=== PATIENT | male | born 1965 | race Caucasian/White ===

== ENCOUNTER → 2017-11-16 | Outpatient (CLI) | payer MEDICARE, MEDICAID ==
[~2017-11-16] MED LIST: AMLO10TA82 PO; AMLO1TAB65 PO; ARIP10TA2 PO; ARPZ10T PO; ASP325T PO; ASP81CT PO; AZOR; AZOR PO; Atorvastatin Calcium PO; BENADRYL; BPR100T PO; BPR75T PO; BUPR150T20 PO; CATHETER FLUSH 10 ML SYR IV PRN; CLN.2TD TOP; CLON1PAT15 TD; CLON1TAB3 PO; CLPD75T PO; CTLP20T PO; DESV50TA PO; DEXL60CA PO; DIVA500T PO; DRNB2.5C PO; DVL250TEC PO; DVL250TEC1 PO; FENO130C5 PO; FLT05NA16 NSEACH; FLUO20CA42 PO; FLUO40CA PO; GMFB600T PO; HCT25T; HYDR-700 PO; IPRA3AMP11 INH; LOTREL; LSRT50T PO; METO100T5 PO; METO200T6 PO; MVI; NF-ESOM40C; NF-ESOM40C PO; NF-KET2% TOP; NFNEB10T PO; OLME40TA14 PO; OLN10T PO; OLN5T PO; OXYC-188 PO; OXYC-309 PO; OXYC1TAB19 PO; PNT40TEC PO; PREN-46 PO; PREN1TAB39 PO; Polyethylene Glycol PO; REGADENOSON 0.4 MG/5 ML SYR (LEXISCAN) IV ONE; RNT150T; SELENIUM SULFIDE TP; SENN1TAB76 PO; STL80T PO; SULF1TAB38; THIA100T12 PO; TRM50T PO; VNL75T PO; WRF10T PO; WRF2T PO; WRF3T PO; ZLP10T PO; [UNRECOGNIZED DRUG - OTHER]
[2017-11-16 08:51] VITALS: BP 130/100
--- NOTE | 2017-11-17 07:40 | STRESS TEST ---
DATE OF SERVICE: 11/16/2017 LEXISCAN MYOVIEW STRESS TEST REPORT REFERRING PHYSICIAN: RADHA Bueno Baseline heart rate is 58, baseline blood pressure 150/97. Baseline EKG is sinus rhythm with no ischemic changes. In summary, the patient received 10.98 mCi of technetium-99 Myoview and the resting images were obtained. Then, the patient received 0.4 mg of Lexiscan followed by 31.1 mCi of technetium-99 Myoview. Throughout the test, there were no EKG changes. The resting and stress images were reviewed and compared in the short axis, horizontal long axis and vertical long axis views. Review of the images showed diaphragmatic attenuation with typical male pattern. No significant ischemia or infarction. SSS is 1, SDS 1, TID value of 1.05. On the gated images, the left ventricle appeared to be in normal size with normal contractility. Calculated ejection fraction of 70%. CONCLUSION: 1. The patient tolerated Lexiscan well. 2. No ischemia or infarction on SPECT images. 3. Normal left ventricular size with normal contractility. Calculated ejection fraction of 70%. Job ID: [id number] DocumentID: [id number] Dictated Date: 11/17/2017 07:17:09 Medical Scheduler Date: 11/17/2017 07:38:58 Dictated By: ALYSSA ANTHONY MD
== END ==
LOC: CARD 07:33
PROVIDERS: ATTEND Internal Medicine Cardiovascular Disease
DX: I48.91 Unspecified atrial fibrillation (principal); I25.10 Atherosclerotic heart disease of native coronary artery without angina pectoris; R07.9 Chest pain, unspecified; R00.2 Palpitations; I49.3 Ventricular premature depolarization; I07.1 Rheumatic tricuspid insufficiency
CPT/HCPCS: 78452; 93017

== ENCOUNTER → 2017-11-30 | Outpatient (CLI) | payer MEDICARE, MEDICAID ==
[~2017-11-30] MED LIST changes: -CATHETER FLUSH 10 ML SYR IV PRN; -REGADENOSON 0.4 MG/5 ML SYR (LEXISCAN) IV ONE
== END ==
LOC: CARD 08:58
PROVIDERS: ATTEND Internal Medicine Cardiovascular Disease
DX: I48.91 Unspecified atrial fibrillation (principal); I25.10 Atherosclerotic heart disease of native coronary artery without angina pectoris; R07.89 Other chest pain; R00.2 Palpitations; I49.3 Ventricular premature depolarization; I07.1 Rheumatic tricuspid insufficiency
CPT/HCPCS: 93306

== ENCOUNTER 2018-02-08 10:24 | Outpatient (CLI) | payer MEDICARE, MEDICAID | END 2018-02-08 10:41 | disposition home or self-care (01) | LOC: SLEEP 10:24 | PROVIDERS: ATTEND Internal Medicine Cardiovascular Disease | DX: G47.33 Obstructive sleep apnea (adult) (pediatric) (principal) ==

== ENCOUNTER → 2018-03-17 | Outpatient (CLI) | payer MEDICARE, MEDICAID ==
--- NOTE | 2018-03-17 16:34 | Diagnostic Imaging Report ---
EXAMINATION: Supine KUB At 4:13 p.m. INDICATION: Check IVC placement. FINDINGS: The previous supine abdomen exam of 09/10/2013 noted an IVC filter in place on the right at the L3-4 level. The IVC filter is again evident on this study and virtually unchanged in position on this exam. There is gas in both the large and small bowel in a nonspecific fashion. There is no evidence for bowel obstruction. There is a fair amount of fecal material in the transverse and ascending colon. There is no mass, organomegaly, or pathological calcification evident. Surgical clips are again seen overlying the right upper quadrant. The osseous structures are intact. IMPRESSION: 1. The vena cava filter seen on the prior exam appears to be stable in position. 2. The bowel gas pattern is nonspecific. There is no acute abnormality evident. Dictated by: Dictated on workstation # [id number]
== END ==
LOC: RAD 15:42
PROVIDERS: ATTEND Nurse Practitioner Primary Care
DX: Z95.828 Presence of other vascular implants and grafts (principal)
CPT/HCPCS: 74018

== ENCOUNTER 2018-05-26 21:00 | Outpatient (CLI) | payer MEDICARE, MEDICAID | END 2018-05-27 06:55 | disposition home or self-care (01) | LOC: SLEEP 21:00 | PROVIDERS: ATTEND Otolaryngology Otolaryngology/Facial Plastic Surgery | DX: G47.33 Obstructive sleep apnea (adult) (pediatric) (principal) | CPT/HCPCS: 95811 ==

== ENCOUNTER → 2019-08-22 | Outpatient (CLI) | payer MEDICARE, MEDICAID ==
[~2019-08-22] MED LIST changes: +HOLD METFORMIN - RECEIVED CONTRAST 20 ML VIAL IV SCH; +IOHEXOL 350 MG/ML 100 ML (OMNIPAQUE 350) VIAL IV ONE; +NS 100 ML (IVPB) BAG IV ONE
--- NOTE | 2019-08-22 09:39 | Diagnostic Imaging Report ---
PROCEDURE: CT abdomen and pelvis with contrast. TECHNIQUE: Multiple contiguous axial images were obtained through the abdomen and pelvis after administration of intravenous contrast. Auto Exposure Controls were utilized during the CT exam to meet ALARA standards for radiation dose reduction. INDICATION: Evaluate [place] filter placement. COMPARISON: Correlation is made with prior CT from 07/09/2010. FINDINGS: The lung bases are clear of acute infiltrates. The liver is unremarkable. The gallbladder is surgically absent. No biliary ductal dilatation is seen. The pancreas and spleen are unremarkable. No adrenal mass is detected. Kidneys are unremarkable. No hydronephrosis is identified. There is an IVC filter which appears to be in appropriate location below the renal veins. A filter is intravascular, without evidence of perforation. No retroperitoneal hematoma is seen. Aorta is normal caliber. There is no aneurysm. Bowel loops do demonstrate a large amount of stool throughout the colon suggestive of constipation. This particularly involves the ascending and transverse colon. Small bowel is normal caliber. Appendix is unremarkable. There is no free fluid or fluid collection. No central, intraperitoneal or mesenteric lymphadenopathy is seen. No iliac or inguinal lymphadenopathy is detected. The bladder and prostate are unremarkable. IMPRESSION: 1. IVC filter is in an appropriate location. No complicating features are seen. 2. Findings suggestive of constipation. Dictated by: Dictated on workstation # [id number]
== END ==
LOC: RAD 08:26
PROVIDERS: ATTEND Pediatrics
DX: R56.9 Unspecified convulsions (principal); Z95.828 Presence of other vascular implants and grafts; Z90.49 Acquired absence of other specified parts of digestive tract
CPT/HCPCS: 74177

== ENCOUNTER → 2020-09-13 | Outpatient (CLI) | payer MEDICARE, MEDICAID ==
[~2020-09-13] MED LIST changes: +CATHETER FLUSH 10 ML SYR IV PRN
--- NOTE | 2020-09-13 12:35 | Diagnostic Imaging Report ---
EXAMINATION: CT Chest, Abdomen and Pelvis with intravenous contrast. TECHNIQUE: Multiple contiguous axial images were obtained through the chest, abdomen and pelvis after the uneventful administration of intravenous contrast. All CT scans use one or more of the following dose optimizing techniques: automated exposure control, MA and/or KvP adjustment based on a patient size and exam type, or iterative reconstruction. HISTORY: Fever of unknown origin. COMPARISON: CT abdomen and pelvis 08/22/2019. FINDINGS: Thyroid: The visualized thyroid gland is normal. Mediastinum: Heart size is normal without significant pericardial effusion. The aorta is normal in caliber. There are multiple mildly enlarged mediastinal lymph nodes with the largest pretracheal node measuring 1.3 x 1.7 cm (series 2, image 20). Lungs and airways: There are patchy groundglass opacities throughout both lungs. No pleural effusion or pneumothorax. The airways are normal. Solid organs: The liver is normal without focal lesion. The gallbladder is surgically absent. There is no biliary ductal dilation. Pancreas is normal. Spleen is normal. Adrenal glands are normal. The kidneys are normal without hydronephrosis. Bowel: The stomach and small bowel are normal without obstruction. The colon and appendix are normal. Peritoneum: There is no intraperitoneal free fluid or free air. No suspicious lymphadenopathy. Vasculature: Normal without aneurysm. An IVC filter is present. Musculoskeletal: Metallic device is present within the anterior left chest, possibly a loop recorder. Multilevel degenerative changes of the spine without suspicious osseous lesion or compression fracture. Pelvis: The prostate gland is normal. The urinary bladder is normal. IMPRESSION: 1. Patchy groundglass opacities throughout both lungs compatible with atypical or multifocal pneumonia. 2. Multiple mildly enlarged mediastinal lymph nodes are likely reactive. 3. No acute abnormality in the abdomen or pelvis. Dictated by: Dictated on workstation # [id number]
== END ==
LOC: RAD 10:45
PROVIDERS: ATTEND Pediatrics
DX: R50.9 Fever, unspecified (principal); R59.0 Localized enlarged lymph nodes
CPT/HCPCS: 71260; 74177

== ENCOUNTER 2020-09-25 16:22 | Inpatient (IN) | payer MEDICARE, MEDICAID ==
[~2020-09-25] VITALS: Ht 185.4 cm; Wt 100.1 kg
[~2020-09-25 16:22] MED LIST changes: -CATHETER FLUSH 10 ML SYR IV PRN; -HOLD METFORMIN - RECEIVED CONTRAST 20 ML VIAL IV SCH; -IOHEXOL 350 MG/ML 100 ML (OMNIPAQUE 350) VIAL IV ONE; -NS 100 ML (IVPB) BAG IV ONE
[2020-09-25] MEDS ORDERED: LACTATED RINGERS 1,000 ML IV ONE (16:42)
[2020-09-25] MEDS ORDERED: LACTATED RINGERS 1,000 ML IV STA (16:44)
--- NOTE | 2020-09-25 16:52 | ED General ---
General Stated Complaint: FEVER / SOB Source of Information: Patient Exam Limitations: No Limitations History of Present Illness Date Seen by Provider: Sep 25, 2020 Time Seen by Provider: 16:33 Initial Comments Here with report of fever at nighttime and associated shortness of breath. States O2 saturations dropped to 87% while on his BiPAP last night. Also reports fever up to 103 overnight. Has had several episodes of this over the last month. His had COVID-19 infection and he has been tested multiple times and have not come up positive so far. Seen in clinic today with these concerns and instructed to come here for evaluation. Had CT scan done on 09/13/2020 and found to have bilateral opacities at that time. Thus far he has tested negative for Covid but knows he is going to get tested to a day again. Denies nausea, vomiting or diarrhea. Denies dysuria. Not eating or drinking well. This episodes been going on over the last 1 to 2 days. Timing/Duration: 1-2 Days Severity: Moderate Associated Systoms: Cough, Fever/Chills, Shortness of Air, Weakness Allergies and Home Medications Allergies Coded Allergies: KRIS Inhibitors (Unverified Allergy, Severe, FACIAL SWELLING, 05/20/13) haloperidol (Verified Allergy, Severe, 10/13/13) phenazopyridine HCl (Unverified Allergy, Severe, FACIAL SWELLING, 05/20/13) Home Medications Amlodipine Besylate 10 Mg Tablet, 10 MG PO HS, (Reported) Aripiprazole 10 Mg Tab, 5 MG PO BID Prescribed by: AVRIL HILLS on 11/23/131518 Aspirin 325 Mg Tab, 325 MG PO DAILY, (Reported) Aspirin 81 Mg Chew, 81 MG PO DAILY@0900 Prescribed by: AVRIL HILLS on 11/23/131518 Bupropion Hcl 150 Mg Tablet.sa, 150 MG PO BID, (Reported) Bupropion Hcl 100 Mg Tab, 150 MG PO BID Prescribed by: AVRIL HILLS on 11/23/131518 Clonidine Hcl 0.2 Mg Patch, 0.2 MG TOP Th@21 Prescribed by: AVRIL HILLS on 11/23/131518 Clopidogrel Bisulfate 75 Mg Tab, 75 MG PO DAILY Prescribed by: AVRIL HILLS on 11/23/131518 Dexlansoprazole 60 Mg Marcell., 60 MG PO DAILY, (Reported) Divalproex Sodium 250 Mg Tab, 125 MG PO DAILY, (Reported) Divalproex Sodium 250 Mg Tab, 250 MG PO DAILY Prescribed by: AVRIL HILLS on 11/23/131518 Dronabinol 2.5 Mg Cap, 5 MG PO BID Prescribed by: AVRIL HILLS on 11/23/131518 Fluoxetine Hcl 40 Mg Capsule, 2 EACH PO DAILY, (Reported) Fluoxetine Hcl 20 Mg Cap, 40 MG PO DAILY Prescribed by: AVRIL HILLS on 11/23/131518 Gemfibrozil 600 Mg Tab, 600 MG PO BID Prescribed by: AVRIL HILLS on 11/23/131518 Ketoconazole 15 Gm Tube, 0 GM TOP BID Prescribed by: AVRIL HILLS on 11/23/131518 Losartan Potassium 50 Mg Tab, 50 MG PO DAILY Prescribed by: AVRIL HILLS on 11/23/131518 Metoprolol Succinate 100 Mg Tab.sr.24h, 100 MG PO BID, (Reported) Olanzapine 10 Mg Tab, 10 MG PO HS, (Reported) Olmesartan Medoxomil 40 Mg Tablet, 1 TAB PO DAILY, (Reported) Pantoprazole Sodium 40 Mg Tab, 40 MG PO BIDAC Prescribed by: AVRIL HILLS on 11/23/131518 Vit/Fe Fumarate/Fa 1 Each Tablet, 1 EACH PO DAILY, (Reported) Senna 1 Ea Tablet, 2 EA PO BID Prescribed by: AVRIL HILLS on 11/23/131518 Sotalol Hcl 80 Mg Tab, 80 MG PO BID Prescribed by: AVRIL HILLS on 11/23/131518 Tramadol Hcl 50 Mg Tab, 50 MG PO QID PRN for MODERATE PAIN Prescribed by: AVRIL HILLS on 11/23/131518 [Atorvastatin Calcium] 10 MG TABLET, 10 MG PO HS Prescribed by: AVRIL HILLS on 11/23/131518 [Polyethylene Glycol] 17 GM PACK, 17 GM PO BID Prescribed by: AVRIL HILLS on 4/2/14 1519 [Selenium Sulfide] 207 ML BTL, 10 ML TP MoFr@09 Prescribed by: AVRIL HILLS on 11/23/13 1519 Patient Home Medication List Home Medication List Reviewed: Yes Review of Systems Review of Systems Constitutional: see HPI; No chills; fever EENTM: nose congestion; No throat pain Respiratory: cough, short of breath Cardiovascular: No chest pain, No edema Gastrointestinal: No abdominal pain, No nausea, No vomiting Genitourinary: no symptoms reported Musculoskeletal: no symptoms reported Skin: no symptoms reported All Other Systems Reviewed Negative Unless Noted: Yes Past Bvqbtzx-Utvdus-Gahslc Hx Past Med/Social Hx: Reviewed Nursing Past Med/Soc Hx Patient Social History Alcohol Use: Denies Use Smoking Status: Never a Smoker Immunizations Up To Date Tetanus Booster (TDap): Less than 5yrs Date of Pneumonia Vaccine: Jul 20, 2013 Past Medical History Surgeries: Yes Orthopedic Respiratory: Yes Pneumonia, Pulmonary Embolism Cardiac: No Neurological: Yes Stroke Sexually Transmitted Disease: No Gastrointestinal: Yes Gastroesophageal Reflux, Liver Disease/Jaundice, Le's Esophagus, Hepatitis Musculoskeletal: Yes Fractures Endocrine: No Loss of Vision: Denies Hearing Impairment: Denies Suicide Attempts, Depression Integumentary: Yes Eczema Adverse Reaction/Blood Tranf: No Physical Exam-Suspected Sepsis Physical Exam Vital Signs Vital Signs - First Documented 09/25/20 16:30 Temp 35.2 Pulse 70 Resp 16 B/P (MAP) 133/86 (102) Pulse Ox 95 O2 Delivery Room Air Capillary Refill : Height, Weight, BMI Height: 6'3.00" Weight: 200lbs. 6.4oz. 90.097878jw; BMI Method:Estimated General Appearance: No Apparent Distress, WD/WN HEENT: PERRL/EOMI, Pharynx Normal Neck: Non Tender, Supple Respiratory: Lungs Clear, Normal Breath Sounds Cardiovascular: Regular Rate, Rhythm, No Murmur Gastrointestinal: Non Tender, Soft Back: Normal Inspection, No CVA Tenderness, No Vertebral Tenderness Extremity: Normal Range of Motion, Non Tender Neurologic/Psychiatric: Alert, Oriented x3 Skin: normal color, warm/dry Focused Exam Lactate Level 09/25/20 16:40: Lactic Acid Level 1.37 Lactic Acid Level Laboratory Tests Test 09/25/20 16:40 Lactic Acid Level 1.37 MMOL/L (0.50-2.00) Progress/Results/Core Measures Suspected Sepsis SIRS Temperature: Pulse: Respiratory Rate: Laboratory Tests 09/25/20 16:40: White Blood Count 13.6H Blood Pressure / Mean: 09/25/20 16:40: Lactic Acid Level 1.37 Laboratory Tests 09/25/20 16:40: Creatinine 0.85, INR Comment 1.0, Platelet Count 331, Total Bilirubin 0.3 Results/Orders Lab Results Laboratory Tests Test 09/25/20 16:40 09/25/20 16:51 09/25/20 18:00 Range/Units White Blood Count 13.6 H 4.3-11.0 10^3/uL Red Blood Count 4.08 L 4.30-5.52 10^6/uL Hemoglobin 11.9 L 13.3-17.7 g/dL Hematocrit 35 L 40-54 % Mean Corpuscular Volume 86 80-99 fL Mean Corpuscular Hemoglobin 29 25-34 pg Mean Corpuscular Hemoglobin Concent 34 32-36 g/dL Red Cell Distribution Width 13.2 10.0-14.5 % Platelet Count 331 130-400 10^3/uL Mean Platelet Volume 9.0 9.0-12.2 fL Immature Granulocyte % (Auto) 1 % Neutrophils (%) (Auto) 74 42-75 % Lymphocytes (%) (Auto) 14 12-44 % Monocytes (%) (Auto) 9 0-12 % Eosinophils (%) (Auto) 3 0-10 % Basophils (%) (Auto) 0 0-10 % Neutrophils # (Auto) 10.0 H 1.8-7.8 10^3/uL Lymphocytes # (Auto) 1.9 1.0-4.0 10^3/uL Monocytes # (Auto) 1.2 H 0.0-1.0 10^3/uL Eosinophils # (Auto) 0.4 H 0.0-0.3 10^3/uL Basophils # (Auto) 0.0 0.0-0.1 10^3/uL Immature Granulocyte # (Auto) 0.1 0.0-0.1 10^3/uL Prothrombin Time 13.8 12.2-14.7 SEC INR Comment 1.0 0.8-1.4 Activated Partial Thromboplast Time 39 H 24-35 SEC D-Dimer 0.42 0.00-0.49 UG/ML Sodium Level 129 L 135-145 MMOL/L Potassium Level 4.1 3.6-5.0 MMOL/L Chloride Level 93 L 98-107 MMOL/L Carbon Dioxide Level 24 21-32 MMOL/L Anion Gap 12 5-14 MMOL/L Blood Urea Nitrogen 11 7-18 MG/DL Creatinine 0.85 0.60-1.30 MG/DL Estimat Glomerular Filtration Rate > 60 BUN/Creatinine Ratio 13 Glucose Level 110 H 70-105 MG/DL Lactic Acid Level 1.37 0.50-2.00 MMOL/L Calcium Level 9.3 8.5-10.1 MG/DL Corrected Calcium 9.5 8.5-10.1 MG/DL Total Bilirubin 0.3 0.1-1.0 MG/DL Aspartate Amino Transf (AST/SGOT) 14 5-34 U/L Alanine Aminotransferase (ALT/SGPT) 8 0-55 U/L Alkaline Phosphatase 92 40-136 U/L C-Reactive Protein High Sensitivity 12.17 H 0.00-0.50 MG/DL Total Protein 7.5 6.4-8.2 GM/DL Albumin 3.8 3.2-4.5 GM/DL Procalcitonin 0.04 <0.10 NG/ML Coronavirus 2019 (KEVIN) Negative Negative Urine Color YELLOW Urine Clarity CLEAR Urine pH 7.0 5-9 Urine Specific [place] 1.010 L 1.016-1.022 Urine Protein NEGATIVE NEGATIVE Urine Glucose (UA) NEGATIVE NEGATIVE Urine Ketones NEGATIVE NEGATIVE Urine Nitrite NEGATIVE NEGATIVE Urine Bilirubin NEGATIVE NEGATIVE Urine Urobilinogen 0.2 < = 1.0 MG/DL Urine Leukocyte Esterase NEGATIVE NEGATIVE Urine RBC (Auto) NEGATIVE NEGATIVE Urine RBC NONE /HPF Urine WBC NONE /HPF Urine Squamous Epithelial Cells NONE /HPF Urine Crystals NONE /LPF Urine Bacteria NEGATIVE /HPF Urine Casts NONE /LPF Urine Mucus NEGATIVE /LPF Urine Culture Indicated NO Micro Results Microbiology 09/25/20 Influenza Types A,B Antigen (KALINA) - Final, Complete My Orders Orders - SARA RODRIGUEZ MD Cbc With Automated Diff (09/25/20 16:44) Comprehensive Metabolic Panel (09/25/20 16:44) Blood Culture (09/25/20 16:44) Sputum Culture (09/25/20 16:44) Urinalysis (09/25/20 16:44) Urine Culture (09/25/20 16:44) Protime With Inr (09/25/20 16:44) Partial Thromboplastin Time (09/25/20 16:44) Chest 1 View, Ap/Pa Only (09/25/20 16:44) Ed Iv/Invasive Line Start (09/25/20 16:44) Vital Signs Adult Sepsis Patie Q15M (09/25/20 16:44) O2 (09/25/20 16:44) Remove Rings In Anticipation O (09/25/20 16:44) Lactic Acid Analyzer (09/25/20 16:44) Influenza A And B Antigens (09/25/20 16:44) Fibrin Degradation Products (09/25/20 16:44) Procalcitonin (Pct) (09/25/20 16:44) Hs C Reactive Protein (09/25/20 16:44) Covid 19 Inhouse Test (09/25/20 16:44) Lactated Ringers (Lr 1000 Ml Iv Solution (09/25/20 16:44) Lactated Ringers (Lr 1000 Ml Iv Solution (09/25/20 16:42) Coronavirus Sars-Cov-2 So 2019 (09/25/20 16:51) Covid-19 Igg Only So (09/25/20 17:45) Cefepime Injection (Maxipime Injection) (09/25/20 18:15) Vital Signs/I&O 09/25/20 16:30 Temp 35.2 Pulse 70 Resp 16 B/P (MAP) 133/86 (102) Pulse Ox 95 O2 Delivery Room Air Capillary Refill : Progress Note : Progress Note Seen and evaluated. IV, labs, blood cultures and lactic acid ordered. Sepsis order set initiated as well as COVID-19 screening as well as influenza screening. LR 1 L bolus ordered. Monitor patient. 1805: Cefepime 1 g IV ordered for likely pneumonia. Patient Covid test is negative although x-ray has appearance of Covid. We will add Covid IgG to determine if he has had previous infection as this may be post Covid pneumonia. Patient will remain PUI. Patient requires admission. I did discuss the case with Dr. Rowell and she accepts patient for admission, inpatient status. Patient's was updated on the plan. Patient does have history of BiPAP use at night 11/7 we will continue that. All questions answered. Patient agrees with plan. Diagnostic Imaging Diagonstic Imaging: Xray Plain Films/CT/US/NM/MRI: chest Comments [facility], [place] NAME: [facility] REC#: [id number] PT STATUS: REG ER : 1965 PHYSICIAN: SARA RODRIGUEZ MD ADMIT DATE: 09/25/20/ER Signed Date of Exam:09/25/20 CHEST 1 VIEW, AP/PA ONLY EXAMINATION: Chest 1 view. HISTORY: Sepsis. Concern for COVID. COMPARISON: 09/13/2020. FINDINGS: Patchy opacities are seen throughout the lungs, greatest in the midlungs. No large pleural effusion or pneumothorax. The cardiac silhouette is unremarkable. IMPRESSION: 1. Patchy opacities throughout the lungs, which can be seen with COVID infection. No large pleural effusion. Dictated by: Dictated on workstation # [id number] Dict: 09/25/201739 Trans: 09/25/201743 [facility] [id number] Interpreted by: JAZMIN BALLARD DO Electronically signed by: JAZMIN BALLARD DO 09/25/20 1744 Departure Communication (Admissions) Time/Spoke to Admitting Phy: 18:05 Impression Primary Impression: Bilateral pneumonia Qualified Codes: J18.9 - Pneumonia, unspecified organism Additional Impression: Person under investigation for COVID-19 Disposition: ADMITTED INPATIENT Condition: Stable Admissions Decision to Admit Reason: Admit from ER (General) Decision to Admit/Date: Sep 25, 2020 Time/Decision to Admit Time: 18:05 Departure-Patient Inst. Referrals: ALIN CAN MD (PCP/Family) Primary Care Physician SARA RODRIGUEZ MD Sep 25, 2020 16:52
[2020-09-25 17:06] LABS: BASOPHILS % (AUTO) 0 % (0-10); EOSINOPHILS # (AUTO) 0.4 10^3/uL (0.0-0.3); EOSINOPHILS % (AUTO) 3 % (0-10); HEMATOCRIT 35 % (40-54); HEMOGLOBIN 11.9 g/dL (13.3-17.7); LYMPHOCYTES # (AUTO) 1.9 10^3/uL (1.0-4.0); LYMPHOCYTES % (AUTO) 14 % (12-44); MEAN CORPUSCULAR HEMOGLOBIN 29 pg (25-34); MEAN CORPUSCULAR HGB CONC 34 g/dL (32-36); MEAN CORPUSCULAR VOLUME 86 fL (80-99); MONOCYTES # (AUTO) 1.2 10^3/uL (0.0-1.0); MONOCYTES % (AUTO) 9 % (0-12); NEUTROPHILS % (AUTO) 74 % (42-75); PLATELET COUNT 331 10^3/uL (130-400); WHITE BLOOD COUNT 13.6 10^3/uL (4.3-11.0)
[2020-09-25 17:19] LABS: ALBUMIN 3.8 GM/DL (3.2-4.5); CHLORIDE 93 MMOL/L (98-107); POTASSIUM 4.1 MMOL/L (3.6-5.0); SODIUM 129 MMOL/L (135-145)
[2020-09-25 17:20] LABS: CALCIUM 9.3 MG/DL (8.5-10.1)
[2020-09-25 17:21] LABS: GLUCOSE 110 MG/DL (70-105); TOTAL PROTEIN 7.5 GM/DL (6.4-8.2)
[2020-09-25 17:22] LABS: CARBON DIOXIDE 24 MMOL/L (21-32)
[2020-09-25 17:23] LABS: BILIRUBIN,TOTAL 0.3 MG/DL (0.1-1.0); FIBRIN DEGRADATION PRODUCTS 0.42 UG/ML (0.00-0.49); PROTHROMBIN TIME PATIENT 13.8 SEC (12.2-14.7)
[2020-09-25 17:24] LABS: ALKALINE PHOSPHATASE 92 U/L (40-136)
[2020-09-25 17:25] LABS: CREATININE SERUM 0.85 MG/DL (0.60-1.30); GFR ESTIMATED > 60
[2020-09-25 17:26] LABS: BUN/CREATININE RATIO 13
[2020-09-25 17:28] LABS: ALANINE AMINOTRANSFERASE 8 U/L (0-55)
--- NOTE | 2020-09-25 17:28 | NUR ---
Spoke to pt's via phone regarding plan of care for pt.
--- NOTE | 2020-09-25 17:43 | Diagnostic Imaging Report ---
EXAMINATION: Chest 1 view. HISTORY: Sepsis. Concern for COVID. COMPARISON: 09/13/2020. FINDINGS: Patchy opacities are seen throughout the lungs, greatest in the midlungs. No large pleural effusion or pneumothorax. The cardiac silhouette is unremarkable. IMPRESSION: 1. Patchy opacities throughout the lungs, which can be seen with COVID infection. No large pleural effusion. Dictated by: Dictated on workstation # [id number]
[2020-09-25 18:07] LABS: BILIRUBIN,URINE NEGATIVE (NEGATIVE); CLARITY,URINE CLEAR; COLOR,URINE YELLOW; GLUCOSE, URINE (UA) NEGATIVE (NEGATIVE); KETONES,URINE NEGATIVE (NEGATIVE); LEUKOCYTE ESTERASE ,URINE NEGATIVE (NEGATIVE); NITRITE,URINE NEGATIVE (NEGATIVE); PROTEIN,URINE NEGATIVE (NEGATIVE)
[2020-09-25 18:12] LABS: BACTERIA,URINE NEGATIVE /HPF
[2020-09-25] MEDS ORDERED: CEFEPIME INJECTION 1,000 MG in WATER (STERILE) FOR INJECTION 10 ML IV ONE (18:15)
--- NOTE | 2020-09-25 18:19 | NUR ---
Pt's to bring bipap from home.
--- NOTE | 2020-09-25 18:29 | NUR ---
Attempted to call reports; no answer.
[2020-09-25] MEDS ORDERED: CEFEPIME 1 GM/10 ML (MAXIPIME) VIAL ONE (18:48)
[2020-09-25] MEDS ORDERED: WATER (STERILE) FOR INJECTION 10 ML ONE (18:49)
[2020-09-25] MEDS ORDERED: ACETAMINOPHEN 500 MG TAB (TYLENOL) PO PRN (19:30)
[2020-09-25] MEDS ORDERED: ONDANSETRON 4 MG/2 ML (SDV) Z0FRAN IVP PRN (19:30)
[2020-09-25 20:44] VITALS: BP 130/85
--- NOTE | 2020-09-25 21:00 | NUR ---
SPOKE WITH PTS AND UPDATED HER ON PT STATUS. EXPLAINED CALL TIMES AND VISITOR POLICES. PT'S GAVE THIS RN AN UP TO DATE MED LIST AT THIS TIME.
[2020-09-25] MEDS ORDERED: FLUO40CA PO (21:30)
[2020-09-25] MEDS ORDERED: ARIP5TAB57 PO (21:30)
[2020-09-25] MEDS ORDERED: PANT40TA2 PO (21:38)
[2020-09-25] MEDS ORDERED: VIT500TA7 PO (21:38)
[2020-09-25] MEDS ORDERED: CETI10TA49 PO (21:38)
[2020-09-25] MEDS ORDERED: MULT-1029 PO (21:38)
[2020-09-25] MEDS ORDERED: MIRT-94 PO (21:38)
[2020-09-25] MEDS ORDERED: ROSU5TAB PO (21:38)
[2020-09-25] MEDS ORDERED: GEMF600T PO (21:38)
[2020-09-25] MEDS ORDERED: TRZ50T PO (21:38)
[2020-09-25] MEDS ORDERED: FISH1CAP15 PO (21:38)
[2020-09-25] MEDS ORDERED: LOSA50TA63 PO (21:39)
[2020-09-25] MEDS ORDERED: ROSUVASTATIN 5 MG (CRESTOR) TABLET ONE (22:17)
[2020-09-25] MEDS ORDERED: LOSARTAN 50 MG (COZAAR) TAB ONE (22:17)
[2020-09-25] MEDS ORDERED: traZODone 50 MG (DESYREL) TAB ONE (22:17)
[2020-09-25] MEDS ORDERED: DIVALPROEX 500 MG DELAYED RELEASE (DEPAKOTE) TAB PO ONE (22:17)
[2020-09-25] MEDS: SOTALOL 80 MG (BETAPACE) TAB PO SCH (23:18)
[2020-09-25] MEDS: DIVALPROEX 250 MG DELAYED RELEASE (DEPAKOTE) TAB PO SCH (23:19)
[2020-09-25] MEDS: LOSARTAN 50 MG (COZAAR) TAB PO SCH (23:19)
[2020-09-25] MEDS: ROSUVASTATIN 5 MG (CRESTOR) TABLET PO SCH (23:20)
[2020-09-25] MEDS: traZODone 50 MG (DESYREL) TAB PO SCH (23:20)
[2020-09-25] MEDS: MIRTAZAPINE 15 MG (REMERON) TAB PO SCH (23:20)
[2020-09-26] VITALS (7 sets, daily range): BP systolic 106–152; BP diastolic 64–86
[2020-09-26] MEDS ORDERED: RT-ALBUTEROL/IPRATROPIUM 3 ML (DUONEB) VIAL INH PRN (01:00)
[2020-09-26] MEDS: CEFEPIME INJECTION 1,000 MG in WATER (STERILE) FOR INJECTION 10 ML IV SCH ×4 (01:45→20:56)
[2020-09-26 06:14] LABS: BASOPHILS % (AUTO) 0 % (0-10); EOSINOPHILS # (AUTO) 0.3 10^3/uL (0.0-0.3); EOSINOPHILS % (AUTO) 3 % (0-10); HEMATOCRIT 30 % (40-54); LYMPHOCYTES # (AUTO) 2.4 10^3/uL (1.0-4.0); LYMPHOCYTES % (AUTO) 22 % (12-44); MEAN CORPUSCULAR HEMOGLOBIN 29 pg (25-34); MEAN CORPUSCULAR HGB CONC 34 g/dL (32-36); MEAN CORPUSCULAR VOLUME 85 fL (80-99); MEAN PLATELET VOLUME 8.9 fL (9.0-12.2); MONOCYTES # (AUTO) 0.9 10^3/uL (0.0-1.0); MONOCYTES % (AUTO) 8 % (0-12); NEUTROPHILS # (AUTO) 7.4 10^3/uL (1.8-7.8); NEUTROPHILS % (AUTO) 66 % (42-75); PLATELET COUNT 304 10^3/uL (130-400); WHITE BLOOD COUNT 11.1 10^3/uL (4.3-11.0)
[2020-09-26 06:27] LABS: ALBUMIN 3.2 GM/DL (3.2-4.5); CHLORIDE 98 MMOL/L (98-107); POTASSIUM 4.2 MMOL/L (3.6-5.0); SODIUM 131 MMOL/L (135-145)
[2020-09-26 06:29] LABS: CALCIUM 8.5 MG/DL (8.5-10.1)
[2020-09-26 06:30] LABS: GLUCOSE 90 MG/DL (70-105); TOTAL PROTEIN 6.2 GM/DL (6.4-8.2)
[2020-09-26 06:31] LABS: CARBON DIOXIDE 23 MMOL/L (21-32)
[2020-09-26 06:32] LABS: BILIRUBIN,TOTAL 0.4 MG/DL (0.1-1.0)
[2020-09-26 06:33] LABS: ALKALINE PHOSPHATASE 78 U/L (40-136); CREATININE SERUM 0.75 MG/DL (0.60-1.30); GFR ESTIMATED > 60
[2020-09-26 06:34] LABS: BUN/CREATININE RATIO 9
[2020-09-26 06:36] LABS: ALANINE AMINOTRANSFERASE 7 U/L (0-55)
[2020-09-26] MEDS ORDERED: DIVALPROEX 250 MG DELAYED RELEASE (DEPAKOTE) TAB PO SCH (09:00)
[2020-09-26] MEDS ORDERED: LOSARTAN 50 MG (COZAAR) TAB PO SCH (09:00)
[2020-09-26] MEDS ORDERED: SOTALOL 80 MG (BETAPACE) TAB PO SCH (09:00)
[2020-09-26] MEDS: ASPIRIN 81 MG CHEW (CHILDREN'S ASA) PO SCH (09:08)
[2020-09-26] MEDS: LOSARTAN 50 MG (COZAAR) TAB PO SCH ×2 (09:09→20:58)
[2020-09-26] MEDS: DIVALPROEX 250 MG DELAYED RELEASE (DEPAKOTE) TAB PO SCH ×2 (09:09→20:58)
[2020-09-26] MEDS: amLODIPine 10 MG (NORVASC) TAB PO SCH (09:09)
[2020-09-26] MEDS: CLOPIDOGREL 75 MG (PLAVIX) TABLET PO SCH (09:09)
[2020-09-26] MEDS: SOTALOL 80 MG (BETAPACE) TAB PO SCH ×2 (09:09→20:58)
[2020-09-26] MEDS: PANTOPRAZOLE 40 MG (PROTONIX) TAB PO SCH (09:09)
[2020-09-26] MEDS: FLUoxetine HCL 20 MG (PROzac) CAP PO SCH (09:10)
--- NOTE | 2020-09-26 10:54 | NUR ---
"RD ASSESSMENT PMHx: pneumonia; PE; stroke; GERD; Le's esophagus; hepatitis; PT INTERACTION: Received dietary consult for MST score. Note pt currently in COVID PUI isolation, per chart review. Note all diet information for consult is per John MANUEL or per chart review. John states current appetite appears good. Note pt had poor appetite prior to admission, per John. Note PO intake 75% x1meal, per chart review. John states no issues with n/v/c/d that she is aware of, and that his last BM was 09/24. Note pt not currently on bowel regimen per chart review. Note unable to determine recent wt hx, per chart review. Given wt hx and PO intake, pt is not at risk for malnutrition at this time. Est. kcal needs: 2159-7824 kcal | 20-25 kcal/kg Est. Pro needs: 80-100 g Pro | 0.8-1.0 g Pro/kg PES STATEMENT: Inadequate oral intake (NI-2.1) related to loss of appetite, as evidenced by chart review, and pt stating poor appetite prior to admission. INTERVENTION: Continue with current diet order of Regular diet. Will continue to follow and reassess as pt needs, intake, and status change. Jennifer DEE MS RD LD [phone] cell"
--- NOTE | 2020-09-26 12:07 | History & Physical ---
HPI History of Present Illness: Reports fever at night starting around 2.5 weeks ago, usually around 8 or 8:30 pm, up to 103. He saw Dr. Garces and was started on antibiotics which did seem to resolve the fevers, but when he completed it after 10 days, he started with the symptoms again. He has chills with the fever. He states he feels fine during the day. Denies headache, sore throat, cough, chest pain, abdominal pain, nausea, vomiting, diarrhea or constipation, dysuria, hematuria, night sweats, weight loss, fatigue. Admits mild nasal congestion, shortness of breath, blood in stool once two to three weeks ago, bright red. His had COVID in late July and he has tested negative multiple times, including the PCR that is pending if it is negative, that will be 5 negatives. There are 2 dogs and 2 cats at home, no known scratches or bites. Does not work outside the home. Source: patient Date seen by provider: Sep 26, 2020 Time Seen by Provider: 12:06 Attending Physician Sheldon Rowell MD PCP Ella Garces MD Consult Date of Admission Sep 25, 2020 at 18:15 Home Medications Home Medications Reviewed patient Home Medication Reconciliation performed by pharmacy medication reconciliations it service technician and/or nursing. Patients Allergies have been reviewed. 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, with chronic weakness HTN HLD Depression Anxiety Obstructive sleep apnea on bipap SurgHx: Ankle/foot repair after fall from a roof Family Medical History Significant Family History: Cancer (both parents, mother throat cancer, father unsure type) Review of Systems ([facility]) Constitutional: see HPI Musculoskeletal: No joint pain, No muscle pain Skin: No rash Reviewed Test Results Reviewed Test Results Lab Laboratory Tests Test 09/25/20 12:00 09/25/20 16:40 09/25/20 16:51 09/25/20 18:00 Range/Units White Blood Count 13.6 H 4.3-11.0 10^3/uL Red Blood Count 4.08 L 4.30-5.52 10^6/uL Hemoglobin 11.9 L 13.3-17.7 g/dL Hematocrit 35 L 40-54 % Mean Corpuscular Volume 86 80-99 fL Mean Corpuscular Hemoglobin 29 25-34 pg Mean Corpuscular Hemoglobin Concent 34 32-36 g/dL Red Cell Distribution Width 13.2 10.0-14.5 % Platelet Count 331 130-400 10^3/uL Mean Platelet Volume 9.0 9.0-12.2 fL Immature Granulocyte % (Auto) 1 % Neutrophils (%) (Auto) 74 42-75 % Lymphocytes (%) (Auto) 14 12-44 % Monocytes (%) (Auto) 9 0-12 % Eosinophils (%) (Auto) 3 0-10 % Basophils (%) (Auto) 0 0-10 % Neutrophils # (Auto) 10.0 H 1.8-7.8 10^3/uL Lymphocytes # (Auto) 1.9 1.0-4.0 10^3/uL Monocytes # (Auto) 1.2 H 0.0-1.0 10^3/uL Eosinophils # (Auto) 0.4 H 0.0-0.3 10^3/uL Basophils # (Auto) 0.0 0.0-0.1 10^3/uL Immature Granulocyte # (Auto) 0.1 0.0-0.1 10^3/uL Prothrombin Time 13.8 12.2-14.7 SEC INR Comment 1.0 0.8-1.4 Activated Partial Thromboplast Time 39 H 24-35 SEC D-Dimer 0.42 0.00-0.49 UG/ML Sodium Level 129 L 135-145 MMOL/L Potassium Level 4.1 3.6-5.0 MMOL/L Chloride Level 93 L 98-107 MMOL/L Carbon Dioxide Level 24 21-32 MMOL/L Anion Gap 12 5-14 MMOL/L Blood Urea Nitrogen 11 7-18 MG/DL Creatinine 0.85 0.60-1.30 MG/DL Estimat Glomerular Filtration Rate > 60 BUN/Creatinine Ratio 13 Glucose Level 110 H 70-105 MG/DL Lactic Acid Level 1.37 0.50-2.00 MMOL/L Calcium Level 9.3 8.5-10.1 MG/DL Corrected Calcium 9.5 8.5-10.1 MG/DL Total Bilirubin 0.3 0.1-1.0 MG/DL Aspartate Amino Transf (AST/SGOT) 14 5-34 U/L Alanine Aminotransferase (ALT/SGPT) 8 0-55 U/L Alkaline Phosphatase 92 40-136 U/L C-Reactive Protein High Sensitivity 12.17 H 0.00-0.50 MG/DL Total Protein 7.5 6.4-8.2 GM/DL Albumin 3.8 3.2-4.5 GM/DL Procalcitonin 0.04 <0.10 NG/ML Coronavirus 2019 ([facility]) Negative Negative Urine Color YELLOW Urine Clarity CLEAR Urine pH 7.0 5-9 Urine Specific [place] 1.010 L 1.016-1.022 Urine Protein NEGATIVE NEGATIVE Urine Glucose (UA) NEGATIVE NEGATIVE Urine Ketones NEGATIVE NEGATIVE Urine Nitrite NEGATIVE NEGATIVE Urine Bilirubin NEGATIVE NEGATIVE Urine Urobilinogen 0.2 < = 1.0 MG/DL Urine Leukocyte Esterase NEGATIVE NEGATIVE Urine RBC (Auto) NEGATIVE NEGATIVE Urine RBC NONE /HPF Urine WBC NONE /HPF Urine Squamous Epithelial Cells NONE /HPF Urine Crystals NONE /LPF Urine Bacteria NEGATIVE /HPF Urine Casts NONE /LPF Urine Mucus NEGATIVE /LPF Urine Culture Indicated NO Test 09/26/20 06:03 09/26/20 11:05 Range/Units White Blood Count 11.1 H 4.3-11.0 10^3/uL Red Blood Count 3.50 L 4.30-5.52 10^6/uL Hemoglobin 10.0 L 13.3-17.7 g/dL Hematocrit 30 L 40-54 % Mean Corpuscular Volume 85 80-99 fL Mean Corpuscular Hemoglobin 29 25-34 pg Mean Corpuscular Hemoglobin Concent 34 32-36 g/dL Red Cell Distribution Width 13.1 10.0-14.5 % Platelet Count 304 130-400 10^3/uL Mean Platelet Volume 8.9 L 9.0-12.2 fL Immature Granulocyte % (Auto) 1 % Neutrophils (%) (Auto) 66 42-75 % Lymphocytes (%) (Auto) 22 12-44 % Monocytes (%) (Auto) 8 0-12 % Eosinophils (%) (Auto) 3 0-10 % Basophils (%) (Auto) 0 0-10 % Neutrophils # (Auto) 7.4 1.8-7.8 10^3/uL Lymphocytes # (Auto) 2.4 1.0-4.0 10^3/uL Monocytes # (Auto) 0.9 0.0-1.0 10^3/uL Eosinophils # (Auto) 0.3 0.0-0.3 10^3/uL Basophils # (Auto) 0.0 0.0-0.1 10^3/uL Immature Granulocyte # (Auto) 0.1 0.0-0.1 10^3/uL Sodium Level 131 L 135-145 MMOL/L Potassium Level 4.2 3.6-5.0 MMOL/L Chloride Level 98 98-107 MMOL/L Carbon Dioxide Level 23 21-32 MMOL/L Anion Gap 10 5-14 MMOL/L Blood Urea Nitrogen 7 7-18 MG/DL Creatinine 0.75 0.60-1.30 MG/DL Estimat Glomerular Filtration Rate > 60 BUN/Creatinine Ratio 9 Glucose Level 90 70-105 MG/DL Calcium Level 8.5 8.5-10.1 MG/DL Corrected Calcium 9.1 8.5-10.1 MG/DL Total Bilirubin 0.4 0.1-1.0 MG/DL Aspartate Amino Transf (AST/SGOT) 14 5-34 U/L Alanine Aminotransferase (ALT/SGPT) 7 0-55 U/L Alkaline Phosphatase 78 40-136 U/L Total Protein 6.2 L 6.4-8.2 GM/DL Albumin 3.2 3.2-4.5 GM/DL Thyroid Stimulating Hormone (TSH) 0.83 0.35-4.94 UIU/ML Radiology CXR 09/25/20: IMPRESSION: 1. Patchy opacities throughout the lungs, which can be seen with COVID infection. No large pleural effusion. CT chest/abd/pelvis 09/13/20: IMPRESSION: 1. Patchy groundglass opacities throughout both lungs compatible with atypical or multifocal pneumonia. 2. Multiple mildly enlarged mediastinal lymph nodes are likely reactive. 3. No acute abnormality in the abdomen or pelvis. Physical Exam-([facility]) Physical Exam Vital Signs VS - Last 72 Hours, by Label 09/25/20 09/25/20 09/25/20 09/25/20 16:30 18:50 20:05 20:44 Temp 35.2 35.2 36.7 Pulse 70 70 72 Resp 16 16 16 B/P (MAP) 133/86 (102) 133/86 (102) 130/85 (100) Pulse Ox 95 95 95 92 O2 Delivery Room Air Room Air Room Air 09/26/20 09/26/20 09/26/20 09/26/20 00:03 00:37 01:18 04:16 Temp 37.1 35.2 36.9 Pulse 76 70 65 63 Resp 16 16 B/P (MAP) 115/72 (86) 106/64 (78) Pulse Ox 90 95 91 O2 Delivery Room Air Room Air FiO2 21 09/26/20 09/26/20 09/26/20 09/26/20 08:00 08:00 09:09 11:09 Temp 36.0 Pulse 62 63 68 Resp 16 B/P (MAP) 113/68 (83) Pulse Ox 91 O2 Delivery Nasal Cannula Room Air O2 Flow Rate 2.00 09/26/20 12:00 Temp 35.8 Pulse 65 Resp 16 B/P (MAP) 118/72 (87) Pulse Ox 94 O2 Delivery Room Air Capillary Refill : Less Than 3 Seconds General Appearance: WD/WN Eyes: Bilateral Eye EOMI HEENT: No scleral icterus (R), No scleral icterus (L) Neck: supple; No lymphadenopathy (R), No lymphadenopathy (L), No thyromegaly Respiratory: rales Cardiovascular: regular rate, rhythm, no murmur Gastrointestinal: normal bowel sounds, non tender, soft, no organomegaly Extremities: no pedal edema Neurologic/Psychiatric: sheep or calf grader II-XII nml as tested (pupils not tested), alert; No abnormal cerebellar tests, No motor weakness; depressed affect Skin: normal color, warm/dry Lymphatic: other (no cervical, supraclavicular, axillary or epitrochloear lymphadenopathy) Assessment/Plan Assessment/Plan Admission Status: Inpatient Order (span 2 midnights) Reason for Inpatient Admission: Fever, pneumonia (1) Fever of unknown origin Status: Acute Assessment & Plan: Nocturnal fevers x 3 weeks, possible bacterial pneumonia vs COVID19, but has failed outpatient antibiotics. If not improving on antibiotics, will consult Pulm for further recommendations on lung findings. (2) Bilateral pneumonia Status: Acute Assessment & Plan: Treating for presumed bacterial pneumonia due to fever, however, suspicion still exists for COVID19 as well as other lung pathologies given the prolonged time course and nocturnal fevers. Continue cefepime for now. Qualifiers: Qualified Codes: J18.9 - Pneumonia, unspecified organism (3) Person under investigation for COVID-19 Status: Acute Assessment & Plan: Multiple negative tests but with clinical findings concerns, antibodies and PCR pending. (4) Leukocytosis Status: Acute Assessment & Plan: Mild, may be reactive or due to infection. Monitor. (5) Hyponatremia Status: Acute Assessment & Plan: Pt reports having hyponatremia in past as well. Check urine sodium, Cl and osmolality and serum osmolality for further eval. TSH normal. Lung findings as above. (6) History of CVA (cerebrovascular accident) Status: Chronic Assessment & Plan: With history of seizures, resume home medications. (7) Depression Status: Chronic Assessment & Plan: Resume home medications (8) Hypertension Status: Chronic (9) Anxiety Status: Chronic Assessment & Plan: Resume home medications (10) DVT prophylaxis Status: Acute Assessment & Plan: Enoxaparin SHELDON ROWELL MD Sep 26, 2020 12:07
[2020-09-26] MEDS ORDERED: SOTA80TA23 PO (14:31)
[2020-09-26] MEDS ORDERED: AMLO-251 PO (14:31)
[2020-09-26] MEDS ORDERED: ASCO100024 PO (14:31)
[2020-09-26] MEDS ORDERED: ASPI-999 PO (14:31)
[2020-09-26] MEDS ORDERED: DIVA250T12 PO (14:31)
[2020-09-26] MEDS ORDERED: CLOP75TA28 PO (14:31)
[2020-09-26] MEDS ORDERED: RT-ALBUINH INH (14:31)
--- NOTE | 2020-09-26 14:32 | NUR ---
SPOKE WITH THE PT (CALLED THE ROOM PHONE)- HE REQUESTED I CALL HIS NOAH SINCE SHE TAKES CARE OF HIS MED. I CALLED NOAH AND WENT THRU THE EXT MED HISTORY TO COMPLETE THE MED REC NOAH WAS ABLE TO NAME ALL THE PTS MEDICATIONS WELL WHEN/HOW HE TAKES EACH- ALL HER INFORMATION MATCHED THE EXT MED HISTORY OTC MEDS: ASPIRIN 81 ZYRTEC CENTRUM SILVER VIT C
[2020-09-26] MEDS: ENOXAPARIN 40 MG/0.4 ML (LOVENOX) SYR SQ SCH (14:54)
[2020-09-26] MEDS: ROSUVASTATIN 5 MG (CRESTOR) TABLET PO SCH (20:58)
[2020-09-26] MEDS: traZODone 50 MG (DESYREL) TAB PO SCH (20:58)
[2020-09-26] MEDS: MIRTAZAPINE 15 MG (REMERON) TAB PO SCH (20:59)
[2020-09-26] MEDS ORDERED: MIRTAZAPINE 15 MG (REMERON) TAB PO SCH (21:00)
[2020-09-26] MEDS ORDERED: traZODone 50 MG (DESYREL) TAB PO SCH (21:00)
[2020-09-26] MEDS ORDERED: ROSUVASTATIN 5 MG (CRESTOR) TABLET PO SCH (21:00)
[2020-09-27] VITALS: BP 116/67
[2020-09-27] MEDS: CEFEPIME INJECTION 1,000 MG in WATER (STERILE) FOR INJECTION 10 ML IV SCH ×4 (01:57→20:45)
[2020-09-27 03:58] VITALS: BP 127/69
[2020-09-27 06:09] LABS: BASOPHILS % (AUTO) 0 % (0-10); EOSINOPHILS # (AUTO) 0.3 10^3/uL (0.0-0.3); EOSINOPHILS % (AUTO) 3 % (0-10); HEMATOCRIT 32 % (40-54); HEMOGLOBIN 10.8 g/dL (13.3-17.7); LYMPHOCYTES # (AUTO) 2.3 10^3/uL (1.0-4.0); LYMPHOCYTES % (AUTO) 23 % (12-44); MEAN CORPUSCULAR HEMOGLOBIN 29 pg (25-34); MEAN CORPUSCULAR HGB CONC 34 g/dL (32-36); MEAN CORPUSCULAR VOLUME 85 fL (80-99); MEAN PLATELET VOLUME 9.2 fL (9.0-12.2); MONOCYTES % (AUTO) 10 % (0-12); NEUTROPHILS # (AUTO) 6.3 10^3/uL (1.8-7.8); NEUTROPHILS % (AUTO) 62 % (42-75); PLATELET COUNT 282 10^3/uL (130-400)
[2020-09-27 06:29] LABS: ALANINE AMINOTRANSFERASE 9 U/L (0-55); ALBUMIN 3.2 GM/DL (3.2-4.5); ALKALINE PHOSPHATASE 80 U/L (40-136); BILIRUBIN,TOTAL 0.3 MG/DL (0.1-1.0); BUN/CREATININE RATIO 9; CALCIUM 8.9 MG/DL (8.5-10.1); CARBON DIOXIDE 22 MMOL/L (21-32); CHLORIDE 101 MMOL/L (98-107); GFR ESTIMATED > 60; GLUCOSE 95 MG/DL (70-105); POTASSIUM 3.9 MMOL/L (3.6-5.0); SODIUM 134 MMOL/L (135-145); TOTAL PROTEIN 6.3 GM/DL (6.4-8.2)
[2020-09-27 08:00] VITALS: BP 118/58
[2020-09-27] MEDS: ASPIRIN 81 MG CHEW (CHILDREN'S ASA) PO SCH (08:19)
[2020-09-27] MEDS: SOTALOL 80 MG (BETAPACE) TAB PO SCH ×2 (08:21→20:55)
[2020-09-27] MEDS: DIVALPROEX 250 MG DELAYED RELEASE (DEPAKOTE) TAB PO SCH ×2 (08:21→20:54)
[2020-09-27] MEDS: LOSARTAN 50 MG (COZAAR) TAB PO SCH ×2 (08:21→20:45)
[2020-09-27] MEDS: CLOPIDOGREL 75 MG (PLAVIX) TABLET PO SCH (08:22)
[2020-09-27] MEDS: PANTOPRAZOLE 40 MG (PROTONIX) TAB PO SCH (08:22)
[2020-09-27] MEDS: amLODIPine 10 MG (NORVASC) TAB PO SCH (08:22)
[2020-09-27] MEDS: FLUoxetine HCL 20 MG (PROzac) CAP PO SCH (08:22)
--- NOTE | 2020-09-27 11:50 | NUR ---
pt was placed on room air for 30 minutes. pt did not desaturate. pt was walked for 2 minutes. pt desaturated to 88%. pt was stopped and placed on 1l nc. pt saturation came up to 92%. pt will need 1l on exursion. Addendum: 09/27/20 at 1150 by SURYA SHAVER RT Amended: Links added.
[2020-09-27 12:27] VITALS: BP 119/79
[2020-09-27] MEDS: ENOXAPARIN 40 MG/0.4 ML (LOVENOX) SYR SQ SCH (13:23)
[2020-09-27 16:00] VITALS: BP 130/79
--- NOTE | 2020-09-27 19:15 | Progress Note ---
Subjective Subjective/Events-last exam Afebrile, feeling okay. Using supplemental oxygen today. Focused Exam Lactate Level 09/25/20 16:40: Lactic Acid Level 1.37 Objective Exam Last Set of Vital Signs Vital Signs Date Time Temp Pulse Resp B/P (MAP) Pulse Ox O2 Delivery O2 Flow Rate FiO2 09/27/20 12:27 36.9 64 18 119/79 (92) 96 Nasal Cannula 1.00 09/26/20 00:37 21 Capillary Refill : Less Than 3 Seconds I&O Intake and Output 09/27/20 00:00 Intake Total 3860 ml Balance 3860 ml Intake Oral 3810 ml IV Total 50 ml # Voids 14 # Bowel Movements 2 General: Alert, No Acute Distress Lungs: Other (rales) Heart: Regular Rate, No Murmurs Extremities: No Edema Neuro: Normal Speech Psych/Mental Status: Other (flat affect) Results/Procedures Lab Laboratory Tests 09/27/20 05:47: White Blood Count 10.0, Red Blood Count 3.71L, Hemoglobin 10.8L, Hematocrit 32L, Mean Corpuscular Volume 85, Mean Corpuscular Hemoglobin 29, Mean Corpuscular Hemoglobin Concent 34, Red Cell Distribution Width 13.2, Platelet Count 282, Mean Platelet Volume 9.2, Immature Granulocyte % (Auto) 1, Neutrophils (%) (Auto) 62, Lymphocytes (%) (Auto) 23, Monocytes (%) (Auto) 10, Eosinophils (%) (Auto) 3, Basophils (%) (Auto) 0, Neutrophils # (Auto) 6.3, Lymphocytes # (Auto) 2.3, Monocytes # (Auto) 1.0, Eosinophils # (Auto) 0.3, Basophils # (Auto) 0.0, Immature Granulocyte # (Auto) 0.1, Sodium Level 134L, Potassium Level 3.9, Chloride Level 101, Carbon Dioxide Level 22, Anion Gap 11, Blood Urea Nitrogen 7, Creatinine 0.80, Estimat Glomerular Filtration Rate > 60, BUN/Creatinine Ratio 9, Glucose Level 95, Calcium Level 8.9, Corrected Calcium 9.5, Total Bilirubin 0.3, Aspartate Amino Transf (AST/SGOT) 13, Alanine Aminotransferase (ALT/SGPT) 9, Alkaline Phosphatase 80, Total Protein 6.3L, Albumin 3.2 Microbiology 09/25/20 Urine Culture - Final, Complete NO GROWTH 09/25/20 Influenza Types A,B Antigen ([facility]) - Final, Complete 09/25/20 Blood Culture - Preliminary, Resulted No growth Radiology CXR 09/25/20: IMPRESSION: 1. Patchy opacities throughout the lungs, which can be seen with COVID infection. No large pleural effusion. CT chest/abd/pelvis 09/13/20: IMPRESSION: 1. Patchy groundglass opacities throughout both lungs compatible with atypical or multifocal pneumonia. 2. Multiple mildly enlarged mediastinal lymph nodes are likely reactive. 3. No acute abnormality in the abdomen or pelvis. Assessment/Plan Assessment/Plan (1) Fever of unknown origin Status: Acute Assessment & Plan: Nocturnal fevers x 3 weeks, possible bacterial pneumonia vs COVID19, but has failed outpatient antibiotics. If not improving on antibiotics, will consult Pulm for further recommendations on lung findings. Afebrile yesterday, continue antibiotics, repeat CT chest with contrast in the am for further evaluation. (2) Bilateral pneumonia Status: Acute Assessment & Plan: Treating for presumed bacterial pneumonia due to fever, however, suspicion still exists for COVID19 as well as other lung pathologies given the prolonged time course and nocturnal fevers. Continue cefepime for now. 09/27 COVID19 antibodies positive, unclear timing of the acute infection. Continue cefepime, discussed with infection control, d/c precautions when afebrile x 72 hours. Qualifiers: Qualified Codes: J18.9 - Pneumonia, unspecified organism (3) Person under investigation for COVID-19 Status: Acute Assessment & Plan: Multiple negative tests but with clinical findings concerns, antibodies and PCR checked- PCR neg, antibodies positive. (4) Leukocytosis Status: Acute Assessment & Plan: Mild, may be reactive or due to infection. Monitor. (5) Hyponatremia Status: Acute Assessment & Plan: Pt reports having hyponatremia in past as well. Check urine sodium, Cl and osmolality and serum osmolality for further eval. TSH normal. Lung findings as above. (6) History of CVA (cerebrovascular accident) Status: Chronic Assessment & Plan: With history of seizures, resume home medications. (7) Depression Status: Chronic Assessment & Plan: Resume home medications (8) Hypertension Status: Chronic (9) Anxiety Status: Chronic Assessment & Plan: Resume home medications (10) DVT prophylaxis Status: Acute Assessment & Plan: Enoxaparin SHELDON BOSTON MD Sep 27, 2020 19:15
[2020-09-27 20:00] VITALS: BP 134/79
[2020-09-27] MEDS: traZODone 50 MG (DESYREL) TAB PO SCH (20:45)
[2020-09-27] MEDS: ROSUVASTATIN 5 MG (CRESTOR) TABLET PO SCH (20:45)
[2020-09-27] MEDS: MIRTAZAPINE 15 MG (REMERON) TAB PO SCH (20:54)
[2020-09-28 00:01] VITALS: BP 118/76
[2020-09-28] MEDS: CEFEPIME INJECTION 1,000 MG in WATER (STERILE) FOR INJECTION 10 ML IV SCH ×2 (02:01→06:37)
[2020-09-28 04:50] VITALS: BP 133/81
[2020-09-28 05:48] LABS: HEMOGLOBIN 11.1 g/dL (13.3-17.7); MEAN PLATELET VOLUME 9.2 fL (9.0-12.2)
[2020-09-28 06:04] LABS: CHLORIDE 100 MMOL/L (98-107); POTASSIUM 4.1 MMOL/L (3.6-5.0); SODIUM 134 MMOL/L (135-145)
[2020-09-28 06:05] LABS: CALCIUM 9.1 MG/DL (8.5-10.1); GLUCOSE 100 MG/DL (70-105)
[2020-09-28 06:07] LABS: CARBON DIOXIDE 23 MMOL/L (21-32)
[2020-09-28 06:09] LABS: GFR ESTIMATED > 60
[2020-09-28 06:10] LABS: BUN/CREATININE RATIO 9
--- NOTE | 2020-09-28 08:03 | Diagnostic Imaging Report ---
PROCEDURE: CT angiography of the chest with contrast. TECHNIQUE: Multiple contiguous axial images were obtained through the chest after uneventful bolus administration of intravenous contrast. 3D reconstructed CTA MIP acquisitions were also performed. Auto Exposure Controls were utilized during the CT exam to meet ALARA standards for radiation dose reduction. DATE: September 28, 2020. COMPARISON: Chest radiograph fibular October 13, 2020. CT chest abdomen and pelvis September 13, 2020. INDICATION: 55-year-old male, recurrent fevers, hypoxia. FINDINGS: There is patchy multifocal bilateral lung consolidation. There is no identified pulmonary nodule. There is no lung mass. There is no pneumothorax. There is no pleural effusion. The central airways are patent. There is no identified pulmonary embolus. The main pulmonary artery is normal in caliber. The heart is not enlarged. There is no pericardial effusion. There is a right hilar lymph node on axial image 61 measuring approximately 15 mm in short axis. There is a subcarinal lymph node on axial image 63 measuring approximately 14 mm in short axis. There are mildly prominent AP window lymph nodes. There is a right superior mediastinal lymph node on axial image 28 measuring 13 mm in short axis. The patient is status post cholecystectomy. There are multilevel degenerative changes of the spine. There is no identified acute bony abnormality. IMPRESSION: CT CHEST. 1. Multifocal patchy bilateral lung consolidation. Differential diagnostic considerations would include multifocal pneumonia including atypical infectious etiologies. COVID 19 infection is in the differential diagnosis. An acute pneumonitis would also be a differential diagnostic consideration. 2. No identified pulmonary embolus. 3. Mediastinal and hilar adenopathy which could be reactive to the airspace consolidative process. Faxed to [facility] at 8:02 a.m. by cvb. Dictated by: Dictated on workstation # [id number]
[2020-09-28] MEDS: ASPIRIN 81 MG CHEW (CHILDREN'S ASA) PO SCH (08:53)
[2020-09-28] MEDS: LOSARTAN 50 MG (COZAAR) TAB PO SCH (08:53)
[2020-09-28] MEDS: FLUoxetine HCL 20 MG (PROzac) CAP PO SCH (08:54)
[2020-09-28] MEDS: amLODIPine 10 MG (NORVASC) TAB PO SCH (08:54)
[2020-09-28] MEDS: DIVALPROEX 250 MG DELAYED RELEASE (DEPAKOTE) TAB PO SCH (08:54)
[2020-09-28] MEDS: PANTOPRAZOLE 40 MG (PROTONIX) TAB PO SCH (08:54)
[2020-09-28] MEDS: CLOPIDOGREL 75 MG (PLAVIX) TABLET PO SCH (08:54)
[2020-09-28] MEDS: SOTALOL 80 MG (BETAPACE) TAB PO SCH (08:54)
[2020-09-28 08:56] VITALS: BP 130/82
--- NOTE | 2020-09-28 09:44 | NUR ---
CM/SS finalized discharge plan. Plan: The patient will discharge to home self care with a new home oxygen need. DME: The patient reports he uses [facility] for his CPAP and would like to continue using them. CM/SS contacted Corinna at the agency to set up oxygen. They will provide a portable tank to the hospital. The patient reports that he is feeling "great" today. He feels that he is able to get around well. Denies any concerns with discharging home. No further needs.
[2020-09-28] MEDS ORDERED: CEFD300C3 PO (11:59)
--- NOTE | 2020-09-28 12:03 | Discharge Summary ---
Discharge Summary Hospital Course Problems/Diagnosis: (1) Fever of unknown origin Status: Acute Assessment & Plan: Nocturnal fevers x 3 weeks, possible bacterial pneumonia vs COVID19, but has failed outpatient antibiotics. If not improving on antibiotics, will consult Pulm for further recommendations on lung findings. Afebrile through stay, ddischarged on cefdinir, repeat CT chest with contrast showed persistent diffuse patchy bilateral infiltrates, no PE, suspect possible post-COVID syndrome. (2) Bilateral pneumonia Status: Acute Assessment & Plan: Treating for presumed bacterial pneumonia due to fever, however, suspicion still exists for COVID19 as well as other lung pathologies given the prolonged time course and nocturnal fevers. Continue cefepime for now. 2/ COVID19 antibodies positive, unclear timing of the acute infection. Continue cefepime, discussed with infection control, d/c precautions when afebrile x 72 hours. Required 1 lpm supplemental O2 with exertion which was ordered on d/c Qualifiers: Qualified Codes: J18.9 - Pneumonia, unspecified organism (3) Person under investigation for COVID-19 Status: Resolved Resolution Date/Time: 09/28/20 @ 12:00 Assessment & Plan: Multiple negative tests but with clinical findings concerns, antibodies and PCR checked- PCR neg, antibodies positive. (4) Leukocytosis Status: Acute Assessment & Plan: Mild, may be reactive or due to infection. Monitor. (5) Hyponatremia Status: Acute Assessment & Plan: Pt reports having hyponatremia in past as well. Check urine sodium, Cl and osmolality and serum osmolality for further eval. TSH normal. Lung findings as above. Improved at d/c. (6) History of CVA (cerebrovascular accident) Status: Chronic Assessment & Plan: With history of seizures, resume home medications. (7) Depression Status: Chronic Assessment & Plan: Resume home medications (8) Hypertension Status: Chronic (9) Anxiety Status: Chronic Assessment & Plan: Resume home medications Hospital Course Date of Admission: Sep 25, 2020 at 18:15 Admission Diagnosis : Family Physician/Provider: Alin Can MD Date of Discharge: 09/28/20 Discharge Diagnosis: See problem list Hospital Course: See problem list Labs and Pending Lab Test: Laboratory Tests 09/28/20 05:28: White Blood Count 11.0, Red Blood Count 3.84L, Hemoglobin 11.1L, Hematocrit 33L, Mean Corpuscular Volume 85, Mean Corpuscular Hemoglobin 29, Mean Corpuscular Hemoglobin Concent 34, Red Cell Distribution Width 13.1, Platelet Count 307, Mean Platelet Volume 9.2, Sodium Level 134L, Potassium Level 4.1, Chloride Level 100, Carbon Dioxide Level 23, Anion Gap 11, Blood Urea Nitrogen 7, Creatinine 0.80, Estimat Glomerular Filtration Rate > 60, BUN/Creatinine Ratio 9, Glucose Level 100, Calcium Level 9.1 Microbiology 09/25/20 Urine Culture - Final, Complete NO GROWTH 09/25/20 Influenza Types A,B Antigen ([facility]) - Final, Complete 09/25/20 Blood Culture - Preliminary, Resulted No growth Home Meds Active Reported Aspirin 81 Mg Tab.chew 81 Mg PO DAILY Vitamin C (Ascorbic Acid) 1,000 Mg Tablet 1,000 Mg PO BID Divalproex Sodium ER (Divalproex Sodium) 250 Mg Tab.er.24h 250 Mg PO BID Amlodipine Besylate 10 Mg Tablet 10 Mg PO DAILY Clopidogrel (Clopidogrel Bisulfate) 75 Mg Tablet 75 Mg PO DAILY Betapace AF (Sotalol HCl) 80 Mg Tablet 80 Mg PO BID Proventil Hfa (Albuterol Sulfate) 6.7 Gm Hfa.aer.ad 2 Puff INH Q4H PRN Losartan Potassium 50 Mg Tablet 50 Mg PO BID Zyrtec (Cetirizine HCl) 10 Mg Tablet 10 Mg PO DAILY Protonix (Pantoprazole Sodium) 40 Mg Tablet.dr 40 Mg PO DAILY Crestor (Rosuvastatin Calcium) 5 Mg Tablet 5 Mg PO HS Lopid (Gemfibrozil) 600 Mg Tablet 600 Mg PO HS Trazodone HCl 50 Mg Tablet 50 Mg PO HS Remeron (Mirtazapine) 30 Mg Tablet 30 Mg PO HS Centrum Silver Tablet (Multivit-Min/FA/Lycopene/Lut) 1 Each Tablet 1 Each PO DAILY PRN Fluoxetine HCl 40 Mg Capsule 40 Mg PO DAILY Aripiprazole 5 Mg Tablet 5 Mg PO HS Assessment/Pt DC Instructions Follow up with Dr. Can on 10/01 at 9:40 am. Discharge Diet: No Restrictions Activity as Tolerated: Yes Discharge Physical Examination Allergies: Coded Allergies: KRIS Inhibitors (Unverified Allergy, Severe, FACIAL SWELLING, 05/20/13) haloperidol (Verified Allergy, Severe, 10/13/13) phenazopyridine HCl (Unverified Allergy, Severe, FACIAL SWELLING, 05/20/13) General Appearance: No Apparent Distress, WD/WN Respiratory: No Accessory Muscle Use, No Respiratory Distress, Crackles Cardiovascular: Regular Rate, Rhythm, No Murmur Gastrointestinal: Normal Bowel Sounds, Soft Extremity: No Pedal Edema Skin: Normal Color, Warm/Dry Neurologic/Psychiatric: Alert, Other (flat affect) Copy Copies To 1: ALIN CAN MD, BETHANY N MD Sep 28, 2020 12:02
[2020-09-28 13:12] VITALS: BP 130/82
== END 2020-09-28 13:14 | disposition home or self-care (01) | DRG 194 ==
LOC: EDUNIT# 16:22 → ER 16:24 → 4TH 18:15
PROVIDERS: ADMIT Family Medicine; ATTEND Family Medicine
DX: J18.9 Pneumonia, unspecified organism (principal); E87.1 Hypo-osmolality and hyponatremia; K21.9 Gastro-esophageal reflux disease without esophagitis; F32.9 Major depressive disorder, single episode, unspecified; Z20.822 Contact with and (suspected) exposure to COVID-19; I10 Essential (primary) hypertension; E78.5 Hyperlipidemia, unspecified; F41.9 Anxiety disorder, unspecified; G47.33 Obstructive sleep apnea (adult) (pediatric); R50.9 Fever, unspecified; D72.829 Elevated white blood cell count, unspecified; Z79.82 Long term (current) use of aspirin; Z88.8 Allergy status to other drugs, medicaments and biological substances; Z86.73 Personal history of transient ischemic attack (TIA), and cerebral infarction without residual deficits
CPT/HCPCS: 36415; 71045; 71275; 80048; 80053; 81000; 82436; 83605; 83930; 83935; 84145; 84300; 84443; 85025; 85027; 85379; 85610; 85730; 86141; 86769; 87040; 87088; 87635; 87804; 94760; 94761

== ENCOUNTER 2020-10-26 08:23 | Inpatient (IN) | payer MEDICARE, MEDICAID ==
[~2020-10-26] VITALS: Ht 190 cm; Wt 103.4 kg
[~2020-10-26 08:23] MED LIST changes: +AMLO-251 PO; +ARIP5TAB57 PO; +ASCO100024 PO; +ASPI-999 PO; +CEFD300C3 PO; +CETI10TA49 PO; +CLOP75TA28 PO; +DIVA250T12 PO; +FISH1CAP15 PO; +GEMF600T PO; +LOSA50TA63 PO; +MIRT-94 PO; +MULT-1029 PO; +PANT40TA2 PO; +ROSU5TAB PO; +RT-ALBUINH INH; +SOTA80TA23 PO; +TRZ50T PO; +VIT500TA7 PO
[2020-10-26] MEDS ORDERED: VANCOMYCIN INJECTION 2,000 MG in NS IV 500 ML 500 ML IV ONE (08:38)
[2020-10-26 08:43] LABS: ABG BASE EXCESS 2.2 MMOL/L (-2.5-2.5); ABG OXYGEN SATURATION 98 % (94-100); ABG PCO2 35 MMHG (35-45); ABG PH 7.47 (7.37-7.43); ABG PO2 103 MMHG (79-93); ABG TCO2 26.8 MMOL/L (21.0-31.0)
[2020-10-26 08:44] LABS: ALLENS TEST YES-POS; INSPIRED O2 5; PATIENT TEMP 36.4; VENTILATOR NO
[2020-10-26] MEDS ORDERED: CEFEPIME INJECTION 1,000 MG in WATER (STERILE) FOR INJECTION 10 ML IV ONE (08:45)
[2020-10-26] MEDS ORDERED: LACTATED RINGERS 1,000 ML IV ONE ×2 (08:45)
[2020-10-26 08:55] LABS: BASOPHILS % (AUTO) 0 % (0-10); EOSINOPHILS # (AUTO) 0.5 10^3/uL (0.0-0.3); EOSINOPHILS % (AUTO) 3 % (0-10); HEMATOCRIT 35 % (40-54); HEMOGLOBIN 11.6 g/dL (13.3-17.7); LYMPHOCYTES # (AUTO) 1.3 10^3/uL (1.0-4.0); LYMPHOCYTES % (AUTO) 7 % (12-44); MEAN CORPUSCULAR HEMOGLOBIN 28 pg (25-34); MEAN CORPUSCULAR HGB CONC 33 g/dL (32-36); MEAN CORPUSCULAR VOLUME 83 fL (80-99); MEAN PLATELET VOLUME 8.8 fL (9.0-12.2); MONOCYTES # (AUTO) 1.5 10^3/uL (0.0-1.0); MONOCYTES % (AUTO) 8 % (0-12); NEUTROPHILS # (AUTO) 15.5 10^3/uL (1.8-7.8); NEUTROPHILS % (AUTO) 81 % (42-75); PLATELET COUNT 371 10^3/uL (130-400)
--- NOTE | 2020-10-26 08:56 | ED Respiratory ---
General Chief Complaint: Respiratory Problems Stated Complaint: POSSIBLE PNEUMONIA Source: patient Exam Limitations: no limitations History of Present Illness Date Seen by Provider: Oct 26, 2020 Time Seen by Provider: 08:25 Initial Comments Patient presents ER by private conveyance with his and chief complaint of progressively worsening shortness of breath over the past few days. He called Alin Can his primary care provider who informed him to come here. He says last night his oxygen saturations were down in the 70s per his pulse oximeter. He was diagnosed with pneumonia about a month ago and completed antibiotics about 10 days ago. Since that time is been progressively feeling worse. He had a fever the past couple days of 100 and 2 at night. He has had chills, body aches. Has had multiple tests for Covid and has been positive for antibodies but never been positive for Covid itself. He did did get a flu vaccine earlier in the season and did not get a pneumonia vaccine. He has a history of some right-sided deficits related to stroke and history of blood clots. He has a Vignesh filter in place. He is not on blood thinners but he does take Plavix and aspirin. He says is been taking his medications otherwise as prescribed. Prior to this pneumonia he was not on oxygen. He has no history of smoking. No history of COPD or asthma. Allergies and Home Medications Allergies Coded Allergies: KRIS Inhibitors (Unverified Allergy, Severe, FACIAL SWELLING, 05/20/13) haloperidol (Verified Allergy, Severe, 10/13/13) phenazopyridine HCl (Unverified Allergy, Severe, FACIAL SWELLING, 05/20/13) Home Medications Amlodipine Besylate 10 Mg Tablet, 10 MG PO DAILY, (Reported) Aripiprazole 5 Mg Tablet, 5 MG PO HS, (Reported) Ascorbic Acid 1,000 Mg Tablet, 1,000 MG PO BID, (Reported) Aspirin 81 Mg Tab.chew, 81 MG PO HS, (Reported) Cetirizine HCl 10 Mg Tablet, 10 MG PO DAILY, (Reported) Clopidogrel Bisulfate 75 Mg Tablet, 75 MG PO DAILY, (Reported) Divalproex Sodium 250 Mg Tab.er.24h, 250 MG PO BID, (Reported) Fluoxetine HCl 40 Mg Capsule, 40 MG PO DAILY, (Reported) Gemfibrozil 600 Mg Tablet, 600 MG PO HS, (Reported) Losartan Potassium 50 Mg Tablet, 50 MG PO BID, (Reported) Mirtazapine 30 Mg Tablet, 30 MG PO HS, (Reported) Multivit-Min/FA/Lycopene/Lut 1 Each Tablet, 1 EACH PO DAILY, (Reported) Newton-3S/Dha/Epa/Fish Oil 1 Each Capsule, 1 EACH PO BID, (Reported) Pantoprazole Sodium 40 Mg Tablet.dr, 40 MG PO DAILY, (Reported) Rosuvastatin Calcium 5 Mg Tablet, 5 MG PO HS, (Reported) Sotalol HCl 80 Mg Tablet, 80 MG PO BID, (Reported) Trazodone HCl 50 Mg Tablet, 50 MG PO HS, (Reported) Patient Home Medication List Home Medication List Reviewed: Yes Review of Systems Review of Systems Constitutional: chills; No diaphoresis; fever, malaise EENTM: No ear discharge, No ear pain Respiratory: cough; No orthopnea; phlegm, short of breath; No wheezing Cardiovascular: No chest pain, No edema Gastrointestinal: No abdominal pain, No nausea, No vomiting Genitourinary: No discharge, No dysuria Musculoskeletal: No back pain, No joint pain All Other Systems Reviewed Negative Unless Noted: Yes Past Mqrdrhi-Qizhdo-Txwcwh Hx Patient Social History 2nd Hand Smoke Exposure: No Recent Hopitalizations: Yes Immunizations Up To Date Tetanus Booster (TDap): Less than 5yrs Date of Pneumonia Vaccine: Jul 20, 2013 Date of Influenza Vaccine: Aug 25, 2020 Past Medical History Surgeries: Yes Orthopedic Respiratory: Yes Pneumonia, Pulmonary Embolism Cardiac: No Neurological: Yes Stroke Sexually Transmitted Disease: No HIV/AIDS: No Gastrointestinal: Yes Gastroesophageal Reflux, Liver Disease/Jaundice, Le's Esophagus, Hepatitis Musculoskeletal: Yes Fractures Endocrine: No Loss of Vision: Denies Hearing Impairment: Denies Cancer: No Psychosocial: Yes (substance abuse) Suicide Attempts, Depression Integumentary: Yes Eczema Blood Disorders: No Adverse Reaction/Blood Tranf: No Family Medical History Cancer Physical Exam Vital Signs - First Documented Capillary Refill : Height: 6'3.00" Weight: 200lbs. 6.4oz. [id number]; 29.12 BMI Method:Estimated General Appearance: WD/WN, moderate distress Eyes: Bilateral Eye Normal Inspection, Bilateral Eye PERRL, Bilateral Eye EOMI HEENT: PERRL/EOMI, normal ENT inspection, pharynx normal Neck: full range of motion, normal inspection Respiratory: lungs clear, normal breath sounds, respiratory distress (Moderate with oxygen saturations in the low 80s on 2 L on arrival.), accessory muscle use; No rales Cardiovascular: normal peripheral pulses, regular rate, rhythm Gastrointestinal: normal bowel sounds, non tender, soft Extremities: non-tender, normal capillary refill Neurologic/Psychiatric: alert, normal mood/affect, oriented x 3 Skin: normal color, warm/dry Focused Exam Sepsis Stage: Sepsis Possible Source: Pulmonary Lactate Level 10/26/20 08:40: Lactic Acid Level 1.01 Time of Focused Exam: 11:00 Respiratory: No Accessory Muscle Use, Respiratory Distress (mild, on 3 L by nasal cannula maintaining a sat in the mid 90s) Cardiovascular: Regular Rate, Rhythm, Normal Peripheral Pulses Capillary Refill: Less Than 3 Seconds Peripheral Pulses: 2+ Radial Pulses (R), 2+ Radial Pulses (L) Skin: normal color, warm/dry Lactic Acid Level Laboratory Tests Test 10/26/20 08:40 Lactic Acid Level 1.01 MMOL/L (0.50-2.00) Within 3hrs of presentation: Admin fluids, Admin ABX, Blood cultures prior to ABX's, Focus exam, Lactate level Progress/Results/Core Measures Suspected Sepsis SIRS Temperature: Pulse: Respiratory Rate: Laboratory Tests 10/26/20 08:40: White Blood Count 19.0H Blood Pressure / Mean: 10/26/20 08:40: Lactic Acid Level 1.01 Laboratory Tests 10/26/20 08:40: Creatinine 0.77, INR Comment 1.0, Platelet Count 371, Total Bilirubin 0.4 Results/Orders Lab Results Laboratory Tests Test 10/26/20 08:36 10/26/20 08:40 Range/Units Blood Gas Puncture Site R WRIST Blood Gas Patient Temperature 36.4 Arterial Blood pH 7.47 H 7.37-7.43 Arterial Blood Partial Pressure CO2 35 35-45 MMHG Arterial Blood Partial Pressure O2 103 H 79-93 MMHG Arterial Blood HCO3 26 23-27 MMOL/L Arterial Blood Total CO2 26.8 21.0-31.0 MMOL/L Arterial Blood Oxygen Saturation 98 94-100 % Arterial Blood Base Excess 2.2 -2.5-2.5 MMOL/L Hardy Test YES-POS Blood Gas Ventilator Setting NO Blood Gas Inspired Oxygen 5 White Blood Count 19.0 H 4.3-11.0 10^3/uL Red Blood Count 4.19 L 4.30-5.52 10^6/uL Hemoglobin 11.6 L 13.3-17.7 g/dL Hematocrit 35 L 40-54 % Mean Corpuscular Volume 83 80-99 fL Mean Corpuscular Hemoglobin 28 25-34 pg Mean Corpuscular Hemoglobin Concent 33 32-36 g/dL Red Cell Distribution Width 13.1 10.0-14.5 % Platelet Count 371 130-400 10^3/uL Mean Platelet Volume 8.8 L 9.0-12.2 fL Immature Granulocyte % (Auto) 1 % Neutrophils (%) (Auto) 81 H 42-75 % Lymphocytes (%) (Auto) 7 L 12-44 % Monocytes (%) (Auto) 8 0-12 % Eosinophils (%) (Auto) 3 0-10 % Basophils (%) (Auto) 0 0-10 % Neutrophils # (Auto) 15.5 H 1.8-7.8 10^3/uL Lymphocytes # (Auto) 1.3 1.0-4.0 10^3/uL Monocytes # (Auto) 1.5 H 0.0-1.0 10^3/uL Eosinophils # (Auto) 0.5 H 0.0-0.3 10^3/uL Basophils # (Auto) 0.0 0.0-0.1 10^3/uL Immature Granulocyte # (Auto) 0.1 0.0-0.1 10^3/uL Neutrophils % (Manual) 75 % Lymphocytes % (Manual) 12 % Monocytes % (Manual) 11 % Eosinophils % (Manual) 2 % Basophils % (Manual) 0 % Band Neutrophils 0 % Blood Morphology Comment NORMAL Prothrombin Time 13.8 12.2-14.7 SEC INR Comment 1.0 0.8-1.4 Activated Partial Thromboplast Time 40 H 24-35 SEC Sodium Level 130 L 135-145 MMOL/L Potassium Level 4.2 3.6-5.0 MMOL/L Chloride Level 94 L 98-107 MMOL/L Carbon Dioxide Level 26 21-32 MMOL/L Anion Gap 10 5-14 MMOL/L Blood Urea Nitrogen 8 7-18 MG/DL Creatinine 0.77 0.60-1.30 MG/DL Estimat Glomerular Filtration Rate > 60 BUN/Creatinine Ratio 10 Glucose Level 95 70-105 MG/DL Lactic Acid Level 1.01 0.50-2.00 MMOL/L Calcium Level 10.0 8.5-10.1 MG/DL Corrected Calcium 10.3 H 8.5-10.1 MG/DL Total Bilirubin 0.4 0.1-1.0 MG/DL Aspartate Amino Transf (AST/SGOT) 29 5-34 U/L Alanine Aminotransferase (ALT/SGPT) 16 0-55 U/L Alkaline Phosphatase 118 40-136 U/L B-Type Natriuretic Peptide 102.4 H <100.0 PG/ML Total Protein 7.3 6.4-8.2 GM/DL Albumin 3.6 3.2-4.5 GM/DL Micro Results Microbiology 10/26/20 Influenza Types A,B Antigen (KALINA) - Final, Complete My Orders Orders - PATRICIA RYAN Arterial Blood Gas (10/26/20 08:36) Cbc With Automated Diff (10/26/20 08:38) Comprehensive Metabolic Panel (10/26/20 08:38) Blood Culture (10/26/20 08:38) Sputum Culture (10/26/20 08:38) Urinalysis (10/26/20 08:38) Urine Culture (10/26/20 08:38) Protime With Inr (10/26/20 08:38) Partial Thromboplastin Time (10/26/20 08:38) Chest 1 View, Ap/Pa Only (10/26/20 08:38) Ed Iv/Invasive Line Start (10/26/20 08:38) Ed Iv/Invasive Line Start (10/26/20 08:38) Vital Signs Adult Sepsis Patie Q15M (10/26/20 08:38) O2 (10/26/20 08:38) Remove Rings In Anticipation O (10/26/20 08:38) Lactic Acid Analyzer (10/26/20 08:38) Influenza A And B Antigens (10/26/20 08:38) Lactated Ringers (Lr 1000 Ml Iv Solution (10/26/20 08:45) Cefepime Injection (Maxipime Injection) (10/26/20 08:45) Vancomycin Injection (Vancomycin Injecti (10/26/20 08:38) Lactated Ringers (Lr 1000 Ml Iv Solution (10/26/20 08:45) Ct Angio Chest W (10/26/20 08:38) BNP (10/26/20 08:41) Iohexol Injection (Omnipaque 350 Mg/Ml 1 (10/26/20 09:00) Received Contrast (Hold Metformin- Contr (10/26/20 09:00) Sodium Chloride Flush (Catheter Flush Sy (10/26/20 09:00) Ns (Ivpb) (Sodium Chloride 0.9% Ivpb Bag (10/26/20 09:00) Manual Differential (10/26/20 08:40) Medications Given in ED Current Medications Medications Dose Ordered Sig/Eugenie Route Start Time Stop Time Status Last Admin Dose Admin Cefepime HCl 1000 mg/Sterile Water 10 ml @ 200 mls/hr ONCE ONCE IV 10/26/20 08:45 10/26/20 08:47 DC 10/26/20 09:07 200 MLS/HR Iohexol 100 ml ONCE ONCE IV 10/26/20 09:00 10/26/20 09:01 DC 10/26/20 09:42 82 ML Lactated Ringer's 1,000 ml @ 0 mls/hr Q0M ONCE IV 10/26/20 08:45 10/26/20 08:46 DC 10/26/20 08:51 1,000 MLS/HR Lactated Ringer's 1,000 ml @ 0 mls/hr Q0M ONCE IV 10/26/20 08:45 10/26/20 08:46 DC 10/26/20 08:52 1,000 MLS/HR Sodium Chloride 10 ml NEEDED PRN IV 10/26/20 09:00 10/26/20 12:20 DC 10/26/20 09:42 10 ML Sodium Chloride 100 ml ONCE ONCE IV 10/26/20 09:00 10/26/20 09:01 DC 10/26/20 09:42 80 ML Vancomycin HCl 2000 mg/Sodium Chloride 500 ml @ 260 mls/hr 0838 ONCE IV 10/26/20 08:38 10/26/20 10:33 DC 10/26/20 09:10 260 MLS/HR Vital Signs/I&O 10/26/20 10/26/20 08:30 08:30 Temp 36.4 Pulse 78 Resp 29 B/P (MAP) 128/56 (80) Pulse Ox 82 94 O2 Delivery Nasal Cannula Nasal Cannula O2 Flow Rate 2.00 3.00 Capillary Refill : Progress Note : Time: 08:56 Progress Note Fever and tachypnea, septic work-up, cefepime and vancomycin. ABG. Suspect repeat pneumonia however a CT angiogram to rule out a blood clot would be morales. Will swab for influenza. Since they have antibody positive and have had multiple negative Covid's screens I would suspect that he has already had Covid 19. Diagnostic Imaging Diagonstic Imaging: Xray Plain Films/CT/US/NM/MRI: chest Comments [facility], [place] NAME: ODALIS RODRIGUEZ [facility] REC#: [id number] PT STATUS: REG ER : 1965 PHYSICIAN: PATRICIA RYAN MD ADMIT DATE: 10/26/20/ER Draft Date of Exam:10/26/20 CHEST 1 VIEW, AP/PA ONLY Indication: Pneumonia Comparison: 09/25/2020 FINDINGS: Progressive 5 lobe coarse nodular mixed interstitial and airspace infiltrates have increased asymmetric greater left. No effusion. The lung volumes symmetric and normal. There is no enlargement of the heart or pulmonary vascularity. IMPRESSION: Progressive 5 lobe infiltrates greater left than right. Dictated on workstation # [id number] Dict: 10/26/20 0908 Trans: 10/26/20 0913 [facility] [id number] Interpreted by: WILDA ADORNO Electronically signed by: Reviewed: Reviewed by Me Diagonstic Imaging: CT (Angiogram) Plain Films/CT/US/NM/MRI: chest Comments NAME: ODALIS RODRIGUEZ MED REC#: [id number] PT STATUS: REG ER : 1965 PHYSICIAN: PATRICIA RYAN MD ADMIT DATE: 10/26/20/ER Draft Date of Exam:10/26/20 CT ANGIO CHEST W PROCEDURE: CT angiography of the chest with contrast. TECHNIQUE: Multiple contiguous axial images were obtained through the chest after uneventful bolus administration of intravenous contrast. 3D reconstructed CTA MIP acquisitions were also performed. Auto Exposure Controls were utilized during the CT exam to meet ALARA standards for radiation dose reduction. INDICATION: Shortness of air. Patient has history of blood clots. Correlation is made with prior CT angiogram of the chest from 09/28/2020. Evaluation of the pulmonary arterial system is without evidence of thromboembolism. No filling defects are seen within central, lobar or segmental branches. The thoracic aorta is of normal caliber. No dissection is identified. There is no pericardial fluid. No pleural fluid is identified. No axillary lymphadenopathy is identified. There are prominent lymph nodes in the mediastinum and franca, similar to prior exam. Pulmonary parenchymal evaluation again demonstrates patchy airspace and groundglass infiltrates in bilateral upper lobes as well as bilateral lower lobes. This appears even more extensive than prior CT from one month earlier. No discrete parenchymal mass is identified. Upper abdomen is unremarkable. IMPRESSION: 1. No evidence of pulmonary embolism or thoracic aortic dissection. 2. Continued mediastinal and hilar lymphadenopathy, similar to CT study from one month earlier. 3. Extensive airspace and ground glass pulmonary infiltrates throughout bilateral upper and lower lobes consistent with infectious/inflammatory process. This has progressed since CT one month earlier. Dictated on workstation # [id number] Dict: 10/26/20 0957 Trans: 10/26/20 1015 [facility] [id number] Interpreted by: TROY COBB MD Electronically signed by: Reviewed: Reviewed by Me Departure Communication (Admissions) Time/Spoke to Admitting Phy: 11:[address] Rowell. 1130: Discussed the case with Dr. Rowell and she agrees with putting the patient on the floor and not doing any further Covid testing at this time. Impression Primary Impression: Bilateral pneumonia Qualified Codes: J18.9 - Pneumonia, unspecified organism Additional Impressions: Acute respiratory failure with hypoxemia Sepsis Qualified Codes: A41.9 - Sepsis, unspecified organism Disposition: ADMITTED INPATIENT Condition: Stable Admissions Decision to Admit Reason: Admit from ER (General) Decision to Admit/Date: Oct 26, 2020 Time/Decision to Admit Time: 09:00 Departure-Patient Inst. Referrals: ALIN CAN MD (PCP/Family) Primary Care Physician PATRICIA RYAN Oct 26, 2020 08:56
[2020-10-26] MEDS ORDERED: NS 100 ML (IVPB) BAG IV ONE (09:00)
[2020-10-26] MEDS ORDERED: HOLD METFORMIN - RECEIVED CONTRAST 20 ML VIAL IV SCH (09:00)
[2020-10-26] MEDS ORDERED: CATHETER FLUSH 10 ML SYR IV PRN ×2 (09:00→12:45)
[2020-10-26] MEDS ORDERED: IOHEXOL 350 MG/ML 100 ML (OMNIPAQUE 350) VIAL IV ONE (09:00)
[2020-10-26 09:04] LABS: ALBUMIN 3.6 GM/DL (3.2-4.5); CHLORIDE 94 MMOL/L (98-107); POTASSIUM 4.2 MMOL/L (3.6-5.0); SODIUM 130 MMOL/L (135-145)
[2020-10-26 09:05] LABS: PROTHROMBIN TIME PATIENT 13.8 SEC (12.2-14.7)
[2020-10-26 09:07] LABS: GLUCOSE 95 MG/DL (70-105); TOTAL PROTEIN 7.3 GM/DL (6.4-8.2)
[2020-10-26 09:08] LABS: BILIRUBIN,TOTAL 0.4 MG/DL (0.1-1.0); CARBON DIOXIDE 26 MMOL/L (21-32)
[2020-10-26 09:10] LABS: ALKALINE PHOSPHATASE 118 U/L (40-136); CREATININE SERUM 0.77 MG/DL (0.60-1.30); GFR ESTIMATED > 60
[2020-10-26 09:11] LABS: BUN/CREATININE RATIO 10
[2020-10-26 09:13] LABS: ALANINE AMINOTRANSFERASE 16 U/L (0-55)
--- NOTE | 2020-10-26 09:14 | Diagnostic Imaging Report ---
Indication: Pneumonia Comparison: 09/25/2020 FINDINGS: Progressive 5 lobe coarse nodular mixed interstitial and airspace infiltrates have increased asymmetric greater left. No effusion. The lung volumes symmetric and normal. There is no enlargement of the heart or pulmonary vascularity. IMPRESSION: Progressive 5 lobe infiltrates greater left than right. Dictated by: Dictated on workstation # [id number]
[2020-10-26 09:21] LABS: BAND NEUTROPHILS 0 %; LYMPHOCYTES % (MANUAL) 12 %; NEUTROPHILS % (MANUAL) 75 %
[2020-10-26 09:22] LABS: BASOPHILS % (MANUAL) 0 %; EOSINOPHILS % (MANUAL) 2 %; MONOCYTES % (MANUAL) 11 %; RBC MORPH NORMAL
--- NOTE | 2020-10-26 10:15 | Diagnostic Imaging Report ---
PROCEDURE: CT angiography of the chest with contrast. TECHNIQUE: Multiple contiguous axial images were obtained through the chest after uneventful bolus administration of intravenous contrast. 3D reconstructed CTA MIP acquisitions were also performed. Auto Exposure Controls were utilized during the CT exam to meet ALARA standards for radiation dose reduction. INDICATION: Shortness of air. Patient has history of blood clots. Correlation is made with prior CT angiogram of the chest from 09/28/2020. Evaluation of the pulmonary arterial system is without evidence of thromboembolism. No filling defects are seen within central, lobar or segmental branches. The thoracic aorta is of normal caliber. No dissection is identified. There is no pericardial fluid. No pleural fluid is identified. No axillary lymphadenopathy is identified. There are prominent lymph nodes in the mediastinum and franca, similar to prior exam. Pulmonary parenchymal evaluation again demonstrates patchy airspace and groundglass infiltrates in bilateral upper lobes as well as bilateral lower lobes. This appears even more extensive than prior CT from one month earlier. No discrete parenchymal mass is identified. Upper abdomen is unremarkable. IMPRESSION: 1. No evidence of pulmonary embolism or thoracic aortic dissection. 2. Continued mediastinal and hilar lymphadenopathy, similar to CT study from one month earlier. 3. Extensive airspace and ground glass pulmonary infiltrates throughout bilateral upper and lower lobes consistent with infectious/inflammatory process. This has progressed since CT one month earlier. Dictated by: Dictated on workstation # [id number]
[2020-10-26 10:16] LABS: BILIRUBIN,URINE NEGATIVE (NEGATIVE); CLARITY,URINE CLEAR; COLOR,URINE YELLOW; GLUCOSE, URINE (UA) NEGATIVE (NEGATIVE); KETONES,URINE NEGATIVE (NEGATIVE); LEUKOCYTE ESTERASE ,URINE NEGATIVE (NEGATIVE); NITRITE,URINE NEGATIVE (NEGATIVE); PROTEIN,URINE NEGATIVE (NEGATIVE)
[2020-10-26 10:27] LABS: BACTERIA,URINE NEGATIVE /HPF
[2020-10-26 12:10] VITALS: BP 132/73
[2020-10-26] MEDS ORDERED: ONDANSETRON 4 MG/2 ML (SDV) Z0FRAN IV PRN (12:30)
[2020-10-26] MEDS ORDERED: ACETAMINOPHEN 650 MG SUPP (TYLENOL) PR PRN (12:30)
--- NOTE | 2020-10-26 12:58 | History & Physical ---
HPI History of Present Illness: 55 yo with recurrent respiratory symptoms. He states he was treated with antibiotics by Dr. Garces outpatient, and got sick again just after, got a second course and did okay for about a week and a half to the point he didn't even need supplemental oxygen. However on Thursday he started getting chills and shortness of breath and oxygen was dropping into the 70s with moving around. He has been using oxygen at up to 4 lpm. He had temperature up to 102 measured at home. Has has had some cough. Source: patient Date seen by provider: Oct 26, 2020 Time Seen by Provider: 12:57 Attending Physician Sheldon Rowell MD PCP Ella Garces MD Consult Date of Admission Oct 26, 2020 at 09:40 Home Medications Home Medications Reviewed patient Home Medication Reconciliation performed by pharmacy medication reconciliations inorganic chemical technician and/or nursing. Patients Allergies have been reviewed. 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, with chronic weakness HTN HLD Depression Anxiety Obstructive sleep apnea on bipap SurgHx: Ankle/foot repair after fall from a roof Family Medical History Significant Family History: Cancer Review of Systems ([facility]) Constitutional: chills, fever EENTM: nose congestion (chronic); No throat pain Respiratory: cough, short of breath Cardiovascular: No chest pain Gastrointestinal: No abdominal pain, No constipation, No diarrhea, No nausea, No vomiting Genitourinary: No dysuria Musculoskeletal: No joint pain Skin: No rash Reviewed Test Results Reviewed Test Results Lab Laboratory Tests Test 10/26/20 08:36 10/26/20 08:40 10/26/20 10:10 Range/Units Blood Gas Puncture Site R WRIST Blood Gas Patient Temperature 36.4 Arterial Blood pH 7.47 H 7.37-7.43 Arterial Blood Partial Pressure CO2 35 35-45 MMHG Arterial Blood Partial Pressure O2 103 H 79-93 MMHG Arterial Blood HCO3 26 23-27 MMOL/L Arterial Blood Total CO2 26.8 21.0-31.0 MMOL/L Arterial Blood Oxygen Saturation 98 94-100 % Arterial Blood Base Excess 2.2 -2.5-2.5 MMOL/L Hrady Test YES-POS Blood Gas Ventilator Setting NO Blood Gas Inspired Oxygen 5 White Blood Count 19.0 H 4.3-11.0 10^3/uL Red Blood Count 4.19 L 4.30-5.52 10^6/uL Hemoglobin 11.6 L 13.3-17.7 g/dL Hematocrit 35 L 40-54 % Mean Corpuscular Volume 83 80-99 fL Mean Corpuscular Hemoglobin 28 25-34 pg Mean Corpuscular Hemoglobin Concent 33 32-36 g/dL Red Cell Distribution Width 13.1 10.0-14.5 % Platelet Count 371 130-400 10^3/uL Mean Platelet Volume 8.8 L 9.0-12.2 fL Immature Granulocyte % (Auto) 1 % Neutrophils (%) (Auto) 81 H 42-75 % Lymphocytes (%) (Auto) 7 L 12-44 % Monocytes (%) (Auto) 8 0-12 % Eosinophils (%) (Auto) 3 0-10 % Basophils (%) (Auto) 0 0-10 % Neutrophils # (Auto) 15.5 H 1.8-7.8 10^3/uL Lymphocytes # (Auto) 1.3 1.0-4.0 10^3/uL Monocytes # (Auto) 1.5 H 0.0-1.0 10^3/uL Eosinophils # (Auto) 0.5 H 0.0-0.3 10^3/uL Basophils # (Auto) 0.0 0.0-0.1 10^3/uL Immature Granulocyte # (Auto) 0.1 0.0-0.1 10^3/uL Neutrophils % (Manual) 75 % Lymphocytes % (Manual) 12 % Monocytes % (Manual) 11 % Eosinophils % (Manual) 2 % Basophils % (Manual) 0 % Band Neutrophils 0 % Blood Morphology Comment NORMAL Prothrombin Time 13.8 12.2-14.7 SEC INR Comment 1.0 0.8-1.4 Activated Partial Thromboplast Time 40 H 24-35 SEC Sodium Level 130 L 135-145 MMOL/L Potassium Level 4.2 3.6-5.0 MMOL/L Chloride Level 94 L 98-107 MMOL/L Carbon Dioxide Level 26 21-32 MMOL/L Anion Gap 10 5-14 MMOL/L Blood Urea Nitrogen 8 7-18 MG/DL Creatinine 0.77 0.60-1.30 MG/DL Estimat Glomerular Filtration Rate > 60 BUN/Creatinine Ratio 10 Glucose Level 95 70-105 MG/DL Lactic Acid Level 1.01 0.50-2.00 MMOL/L Calcium Level 10.0 8.5-10.1 MG/DL Corrected Calcium 10.3 H 8.5-10.1 MG/DL Total Bilirubin 0.4 0.1-1.0 MG/DL Aspartate Amino Transf (AST/SGOT) 29 5-34 U/L Alanine Aminotransferase (ALT/SGPT) 16 0-55 U/L Alkaline Phosphatase 118 40-136 U/L B-Type Natriuretic Peptide 102.4 H <100.0 PG/ML Total Protein 7.3 6.4-8.2 GM/DL Albumin 3.6 3.2-4.5 GM/DL Urine Color YELLOW Urine Clarity CLEAR Urine pH 7.0 5-9 Urine Specific [place] 1.010 L 1.016-1.022 Urine Protein NEGATIVE NEGATIVE Urine Glucose (UA) NEGATIVE NEGATIVE Urine Ketones NEGATIVE NEGATIVE Urine Nitrite NEGATIVE NEGATIVE Urine Bilirubin NEGATIVE NEGATIVE Urine Urobilinogen 0.2 < = 1.0 MG/DL Urine Leukocyte Esterase NEGATIVE NEGATIVE Urine RBC (Auto) NEGATIVE NEGATIVE Urine RBC NONE /HPF Urine WBC NONE /HPF Urine Squamous Epithelial Cells NONE /HPF Urine Crystals NONE /LPF Urine Bacteria NEGATIVE /HPF Urine Casts NONE /LPF Urine Mucus NEGATIVE /LPF Urine Culture Indicated NO Radiology CTA chest: DRAFT IMPRESSION: 1. No evidence of pulmonary embolism or thoracic aortic dissection. 2. Continued mediastinal and hilar lymphadenopathy, similar to CT study from one month earlier. 3. Extensive airspace and ground glass pulmonary infiltrates throughout bilateral upper and lower lobes consistent with infectious/inflammatory process. This has progressed since CT one month earlier. Physical Exam-([facility]) Physical Exam Vital Signs VS - Last 72 Hours, by Label 10/26/20 10/26/20 10/26/20 10/26/20 08:30 08:30 11:52 13:24 Temp 36.4 36.4 Pulse 78 86 78 Resp 29 24 B/P (MAP) 128/56 (80) 125/90 Pulse Ox 82 94 92 82 O2 Delivery Nasal Cannula Nasal Cannula Nasal Cannula O2 Flow Rate 2.00 3.00 4.00 FiO2 24 Capillary Refill : Less Than 3 Seconds General Appearance: WD/WN, no apparent distress Respiratory: no respiratory distress, no accessory muscle use, rales Cardiovascular: regular rate, rhythm, no murmur Peripheral Pulses: 2+ Dorsalis Pedis (R), 2+ Left Dors-Pedis (L) Gastrointestinal: normal bowel sounds, non tender, soft Extremities: no pedal edema Neurologic/Psychiatric: alert, other (flat affect) Skin: normal color, warm/dry Assessment/Plan Assessment/Plan Admission Status: Inpatient Order (span 2 midnights) Reason for Inpatient Admission: Pneumonia and sepsis (1) Acute respiratory failure with hypoxemia Status: Acute (2) Sepsis Status: Acute Assessment & Plan: Secondary to pneumonia, with marked leukocytosis and tachypnea. Qualifiers: Qualified Codes: A41.9 - Sepsis, unspecified organism (3) Bilateral pneumonia Status: Chronic Assessment & Plan: Persistent bilateral diffuse infiltrates that has failed to resolve with multiple courses of antibiotics. Given fever and leukocytosis, will treat again, but suspect he needs to see Pulm for further work-up even if improved with antibiotics. Qualifiers: Qualified Codes: J18.9 - Pneumonia, unspecified organism (4) Leukocytosis Status: Acute (5) Hyponatremia Status: Acute (6) History of CVA (cerebrovascular accident) Status: Chronic (7) Depression Status: Chronic (8) Hypertension Status: Chronic (9) Anxiety Status: Chronic (10) DVT prophylaxis Status: Acute Assessment & Plan: Enoxaparin SHELDON ROWELL MD Oct 26, 2020 12:58
[2020-10-26 13:24] VITALS: BP 128/56
[2020-10-26] MEDS: LACTATED RINGERS 1,000 ML IV SCH ×2 (13:26→23:08)
[2020-10-26] MEDS ORDERED: SOTA80TA23 PO (13:44)
[2020-10-26] MEDS ORDERED: OMEG-213 PO (13:44)
[2020-10-26] MEDS: RT-ALBUTEROL SULF 2.5 MG/3 ML PRE-MIX VIAL INH SCH ×3 (14:34→23:05)
[2020-10-26] MEDS: ENOXAPARIN 40 MG/0.4 ML (LOVENOX) SYR SQ SCH (14:38)
[2020-10-26] MEDS: CEFEPIME 1,000 MG/SWFI 10 ML IV PUSH IV SCH ×4 (14:38→19:28)
[2020-10-26 15:50] VITALS: BP 127/85
[2020-10-26] MEDS ORDERED: RT-ALBUTEROL SULF 2.5 MG/3 ML PRE-MIX VIAL INH PRN (16:00)
[2020-10-26] MEDS: VANCOMYCIN 1500 MG/NS 500 ML IVPB IV SCH ×2 (19:28)
[2020-10-26] MEDS: SOTALOL 80 MG (BETAPACE) TAB PO SCH (19:29)
[2020-10-26] MEDS: ROSUVASTATIN 5 MG (CRESTOR) TABLET PO SCH (19:29)
[2020-10-26] MEDS: traZODone 50 MG (DESYREL) TAB PO SCH (19:30)
[2020-10-26] MEDS: MIRTAZAPINE 15 MG (REMERON) TAB PO SCH (19:30)
[2020-10-26] MEDS: DIVALPROEX EXT RELEASE 250 MG (DEPAKOTE ER) TAB PO SCH (19:30)
[2020-10-26] MEDS: ASPIRIN 81 MG CHEW (CHILDREN'S ASA) PO SCH (19:30)
[2020-10-26 20:00] VITALS: BP 142/87
[2020-10-26] MEDS ORDERED: NON-FORMULARY MEDICATION 1 EA EA (Aripiprazole 5 MG) PO SCH (21:00)
[2020-10-26] MEDS ORDERED: NON-FORMULARY MEDICATION 1 EA EA (Mirtazapine (Remeron) 30 MG) PO SCH (21:00)
[2020-10-26 23:02] VITALS: BP 124/75
[2020-10-26] MEDS: ACETAMINOPHEN 325 MG TABLET PO PRN (23:08)
[2020-10-27] MEDS: RT-ALBUTEROL SULF 2.5 MG/3 ML PRE-MIX VIAL INH SCH ×6 (03:01→22:41)
[2020-10-27] MEDS: CEFEPIME 1,000 MG/SWFI 10 ML IV PUSH IV SCH ×8 (03:49→20:43)
[2020-10-27] MEDS: LACTATED RINGERS 1,000 ML IV SCH ×2 (03:50→06:01)
[2020-10-27 03:56] VITALS: BP 131/80
[2020-10-27 05:11] LABS: BASOPHILS % (AUTO) 0 % (0-10); EOSINOPHILS # (AUTO) 0.2 10^3/uL (0.0-0.3); EOSINOPHILS % (AUTO) 2 % (0-10); HEMATOCRIT 28 % (40-54); HEMOGLOBIN 9.5 g/dL (13.3-17.7); LYMPHOCYTES # (AUTO) 1.6 10^3/uL (1.0-4.0); LYMPHOCYTES % (AUTO) 18 % (12-44); MEAN CORPUSCULAR HEMOGLOBIN 28 pg (25-34); MEAN CORPUSCULAR HGB CONC 34 g/dL (32-36); MEAN CORPUSCULAR VOLUME 84 fL (80-99); MEAN PLATELET VOLUME 10.9 fL (9.0-12.2); MONOCYTES # (AUTO) 0.8 10^3/uL (0.0-1.0); MONOCYTES % (AUTO) 10 % (0-12); NEUTROPHILS # (AUTO) 6.1 10^3/uL (1.8-7.8); NEUTROPHILS % (AUTO) 70 % (42-75); PLATELET COUNT 163 10^3/uL (130-400); WHITE BLOOD COUNT 8.7 10^3/uL (4.3-11.0)
[2020-10-27 05:22] LABS: ALBUMIN 2.8 GM/DL (3.2-4.5)
[2020-10-27 05:23] LABS: CHLORIDE 97 MMOL/L (98-107); SODIUM 130 MMOL/L (135-145)
[2020-10-27 05:24] LABS: CALCIUM 8.5 MG/DL (8.5-10.1)
[2020-10-27 05:25] LABS: GLUCOSE 97 MG/DL (70-105); TOTAL PROTEIN 6.3 GM/DL (6.4-8.2)
[2020-10-27 05:26] LABS: CARBON DIOXIDE 23 MMOL/L (21-32)
[2020-10-27 05:27] LABS: BILIRUBIN,TOTAL 0.3 MG/DL (0.1-1.0)
[2020-10-27 05:29] LABS: ALKALINE PHOSPHATASE 98 U/L (40-136); CREATININE SERUM 0.68 MG/DL (0.60-1.30); GFR ESTIMATED > 60
[2020-10-27 05:30] LABS: BUN/CREATININE RATIO 10
[2020-10-27 05:32] LABS: ALANINE AMINOTRANSFERASE 14 U/L (0-55)
--- NOTE | 2020-10-27 07:37 | Diagnostic Imaging Report ---
INDICATION: Pneumonia, hypoxia. TECHNIQUE: Single view chest 2:30 AM. CORRELATION STUDY: 10/26/2020 FINDINGS: Extensive bilateral pulmonary opacities have adversely changed from prior. Slightly more pronounced in the central aspect of both lung gabriel, left greater than right. Heart size is generally stable. Vasculature obscured but may be increased. Probable loop recorder device over the inferior cardiac apex. IMPRESSION: 1. Bilateral pulmonary opacities, left greater than right, adversely changed from prior. May very well reflect multilobar pneumonia, however, given rather significant interval change, component of edema is not excluded. Dictated by: Dictated on workstation # [id number]
[2020-10-27 07:55] VITALS: BP 137/85
[2020-10-27] MEDS: VANCOMYCIN 1500 MG/NS 500 ML IVPB IV SCH ×4 (08:30→20:45)
[2020-10-27] MEDS: SOTALOL 80 MG (BETAPACE) TAB PO SCH ×2 (08:30→20:44)
[2020-10-27] MEDS: CLOPIDOGREL 75 MG (PLAVIX) TABLET PO SCH (08:31)
[2020-10-27] MEDS: FLUoxetine HCL 20 MG (PROzac) CAP PO SCH (08:31)
[2020-10-27] MEDS: PANTOPRAZOLE 40 MG (PROTONIX) TAB PO SCH (08:31)
[2020-10-27] MEDS: LORATADINE (CLARITIN) 10 MG TAB PO SCH (08:31)
[2020-10-27] MEDS: DIVALPROEX EXT RELEASE 250 MG (DEPAKOTE ER) TAB PO SCH ×2 (08:31→20:45)
[2020-10-27] MEDS ORDERED: NON-FORMULARY MEDICATION 1 EA EA (Cetirizine HCl (Zyrtec) 10 MG) PO SCH (09:00)
[2020-10-27] MEDS ORDERED: NON-FORMULARY MEDICATION 1 EA EA (Fluoxetine HCl 40 MG) PO SCH (09:00)
[2020-10-27] MEDS ORDERED: FUROSEMIDE 40 MG/4 ML INJ (LASIX) ONE (10:10)
[2020-10-27] MEDS ORDERED: FUROSEMIDE 40 MG/4 ML INJ (LASIX) IVP ONE (10:30)
--- NOTE | 2020-10-27 10:59 | Progress Note - Hospitalist ---
Subjective HPI/CC On Admission Date Seen by Provider: Oct 27, 2020 Time Seen by Provider: 09:30 Subjective/Events-last exam Patient was unable to sleep last night. He continues to be dyspneic with talking. Chest x-ray shows possible pulmonary edema. 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 In addition he was raised in a home that heated with wood smoke. Denies vaping or any other risk factors. Patient is beginning to require increased oxygen needs Review of Systems Pulmonary: Dyspnea Focused Exam Lactate Level 10/26/20 08:40: Lactic Acid Level 1.01 Time of Focused Exam: 11:00 Objective Exam Vital Signs Vital Signs Date Time Temp Pulse Resp B/P (MAP) Pulse Ox O2 Delivery O2 Flow Rate FiO2 10/27/20 11:40 37.0 73 32 130/81 (97) 96 Vapotherm 25.00 80.00 10/27/20 10:58 80 Capillary Refill : Less Than 3 Seconds General Appearance: Chronically ill Neck: Limited Range of Motion Respiratory: Crackles, Decreased Breath Sounds Cardiovascular: Regular Rate, Rhythm, No Gallop Gastrointestinal: Non Tender, Soft Extremity: No Pedal Edema Results/Procedures Lab Laboratory Tests 10/27/20 04:35 Patient resulted labs reviewed. Assessment/Plan Assessment and Plan Assess & Plan/Chief Complaint Diffuse interstitial infiltrates of uncertain etiology. Day #2 cefepime and vancomycin with improvement in the white count. Obtain pulmonary consultation with Dr. Lawson. Patient may need lung biopsy or BAL for further diagnosis. Mesothelioma could be a consideration as he has had extensive exposure to asbestosis in the past History of pulmonary embolism with a [place] filter Possible pulmonary edema this morning we will give Lasix and decrease IV fluids Covid antibody positive with no history of known of Covid disease MOISES CLEMENT MD Oct 27, 2020 10:58
[2020-10-27 11:40] VITALS: BP 130/81
[2020-10-27] MEDS: ENOXAPARIN 40 MG/0.4 ML (LOVENOX) SYR SQ SCH (15:08)
[2020-10-27 15:53] VITALS: BP 115/75
[2020-10-27 20:23] VITALS: BP 127/79
[2020-10-27] MEDS: ROSUVASTATIN 5 MG (CRESTOR) TABLET PO SCH (20:43)
[2020-10-27] MEDS: traZODone 50 MG (DESYREL) TAB PO SCH (20:45)
[2020-10-27] MEDS: MIRTAZAPINE 15 MG (REMERON) TAB PO SCH (20:45)
[2020-10-27] MEDS: ASPIRIN 81 MG CHEW (CHILDREN'S ASA) PO SCH (20:45)
[2020-10-27 23:15] VITALS: BP 135/81
[2020-10-28] MEDS: RT-ALBUTEROL SULF 2.5 MG/3 ML PRE-MIX VIAL INH SCH ×6 (01:49→22:31)
[2020-10-28 03:23] VITALS: BP 114/67
[2020-10-28] MEDS: CEFEPIME 1,000 MG/SWFI 10 ML IV PUSH IV SCH ×8 (03:28→20:19)
--- NOTE | 2020-10-28 06:06 | Pulmonary Consultation ---
History of Present Illness History of Present Illness Date Seen by Provider: Oct 28, 2020 Time Seen by Provider: 05:58 Date of Admission History of Present Illness 55yo with hx of DVT and has a [place] filter, and recurrent and progressive respiratory failure failed out pt treatment. He was dx with PNA about 1 month ago. PT was Rx out pt abx however respiratory symptoms continued to progress. Pt is on 4 liters of oxygen at home. his home 02 was down to the 70's prior to admission. Prior to this pneumonia he was not on oxygen. He has had temps up to 102 prior to admission. No productive cough. pt has hx of asbestos exposure in 1983 and smoking marijuanna. Has had multiple tests for Covid and has been positive for COVID antibodies. Allergies and Home Medications Allergies Coded Allergies: KRIS Inhibitors (Unverified Allergy, Severe, FACIAL SWELLING, 05/20/13) haloperidol (Verified Allergy, Severe, 10/13/13) phenazopyridine HCl (Unverified Allergy, Severe, FACIAL SWELLING, 05/20/13) Home Medications Amlodipine Besylate 10 Mg Tablet, 10 MG PO DAILY, (Reported) Aripiprazole 5 Mg Tablet, 5 MG PO HS, (Reported) Ascorbic Acid 1,000 Mg Tablet, 1,000 MG PO BID, (Reported) Aspirin 81 Mg Tab.chew, 81 MG PO HS, (Reported) Cetirizine HCl 10 Mg Tablet, 10 MG PO DAILY, (Reported) Clopidogrel Bisulfate 75 Mg Tablet, 75 MG PO DAILY, (Reported) Divalproex Sodium 250 Mg Tab.er.24h, 250 MG PO BID, (Reported) Fluoxetine HCl 40 Mg Capsule, 40 MG PO DAILY, (Reported) Gemfibrozil 600 Mg Tablet, 600 MG PO HS, (Reported) Losartan Potassium 50 Mg Tablet, 50 MG PO BID, (Reported) Mirtazapine 30 Mg Tablet, 30 MG PO HS, (Reported) Multivit-Min/FA/Lycopene/Lut 1 Each Tablet, 1 EACH PO DAILY, (Reported) [place]-3S/Dha/Epa/Fish Oil 1 Each Capsule, 1 EACH PO BID, (Reported) Pantoprazole Sodium 40 Mg Tablet.dr, 40 MG PO DAILY, (Reported) Rosuvastatin Calcium 5 Mg Tablet, 5 MG PO HS, (Reported) Sotalol HCl 80 Mg Tablet, 80 MG PO BID, (Reported) Trazodone HCl 50 Mg Tablet, 50 MG PO HS, (Reported) Past Olnjtcg-Thzzqn-Ydxljo Hx Patient Social History 2nd Hand Smoke Exposure: No Recent Infectious Disease Expo: No Recent Hopitalizations: Yes Have you traveled recently?: No Alcohol Use?: No Immunizations Up To Date Tetanus Booster (TDap): Less than 5yrs Date of Pneumonia Vaccine: Jul 20, 2013 Date of Influenza Vaccine: Aug 25, 2020 Past Medical History Surgeries: Yes Orthopedic Respiratory: Yes Pneumonia, Pulmonary Embolism Cardiac: No Neurological: Yes Stroke Sexually Transmitted Disease: No HIV/AIDS: No Gastrointestinal: Yes Gastroesophageal Reflux, Liver Disease/Jaundice, Le's Esophagus, Hepatitis Musculoskeletal: Yes Fractures Endocrine: No Loss of Vision: Denies Hearing Impairment: Denies Cancer: No Psychosocial: Yes (substance abuse) Suicide Attempts, Depression Integumentary: Yes Eczema Blood Disorders: No Adverse Reaction/Blood Tranf: No Family Medical History Cancer Review of Systems Time Seen by Provider: 15:22 Sepsis Event Evaluation Height, Weight, BMI Height: 6'3.00" Weight: 200lbs. 6.4oz. 90.830782nw; 27.70 BMI Method:Estimated Exam Exam Vital Signs Date Time Temp Pulse Resp B/P (MAP) Pulse Ox O2 Delivery O2 Flow Rate FiO2 10/28/20 03:23 36.9 70 24 114/67 (83) 94 Vapotherm 20.00 75.00 10/28/20 01:50 95 Vapotherm 20.00 75 10/27/20 23:21 83 10/27/20 23:15 37.7 83 22 135/81 (99) 92 Vapotherm 20.00 75.00 10/27/20 22:41 95 Vapotherm 20.00 75 10/27/20 20:45 Vapotherm 20.00 75 10/27/20 20:44 85 10/27/20 20:23 37.6 85 22 127/79 (95) 95 Vapotherm 20.00 75.00 10/27/20 19:00 96 Vapotherm 20.00 80 10/27/20 15:53 36.8 78 20 115/75 (88) 96 Vapotherm 20.00 80.00 10/27/20 14:51 96 Vapotherm 20.00 80 10/27/20 11:40 37.0 73 32 130/81 (97) 96 Vapotherm 25.00 80.00 10/27/20 10:58 98 Vapotherm 25.00 80 10/27/20 10:34 87 High Flow N/C 7.00 10/27/20 08:00 High Flow N/C 7.00 10/27/20 07:55 37.2 73 28 137/85 (102) 93 High Flow N/C 7.00 10/27/20 06:40 89 High Flow N/C 7.00 I & O 10/28/20 07:00 Intake Total 3310 ml Output Total 4100 ml Balance -790 ml Height & Weight Height: 6'3.00" Weight: 200lbs. 6.4oz. 90.138151ey; 27.70 BMI Method:Estimated General Appearance: Chronically ill Neck: Limited Range of Motion Respiratory: Crackles, Decreased Breath Sounds Cardiovascular: Regular Rate, Rhythm, No Gallop Capillary Refill: Less Than 3 Seconds Peripheral Pulses: 2+ Dorsalis Pedis (R), 2+ Left Dors-Pedis (L), 2+ Radial Pulses (R), 2+ Radial Pulses (L) Gastrointestinal: normal bowel sounds, non tender, soft Extremity: No Pedal Edema Neurologic/Psychiatric: Alert Skin: Normal Color, Warm/Dry Results Lab Laboratory Tests 10/26/20 08:40 10/27/20 04:35 Assessment/Plan Assessment/Plan Acute respiratory/hypoxic failure -Currently on Vapotherm at 70% Bilateral interstitial PNA - failed out pt treatment -Continue Cefepime and d/c Vanco -MRSA nasal swab is negative -Add azithromycin and Eraxis -James cultures negative thus far -Will schedule bronchoscopy for this week. --Check Echo r/o Cardiomyopathy -BNP is mildly elevated -Influenza is negative Legionella ag is negative -Check Viral respiratory panel Hx of asbestos exposure -CT scan reviewed -- No findings consistent with Mesothelioma -No pleural or pulmonary calcifications -CT findings are more consistent with viral/atypical PNA, or acute inflammatory process Anemia -Monitor Hyponatremia -Monitor HX of PE -Pt has [place] filter Hx of marijuanna use -Check UDS Hx of CVA MADAN KHAN DO Oct 28, 2020 06:06
[2020-10-28] MEDS ORDERED: AZITHROMYCIN INJECTION 500 MG in NS (IVPB) 250 ML IV ONE (06:30)
[2020-10-28] MEDS ORDERED: ANIDULAFUNGIN INJECTION 200 MG in NS (IVPB) 250 ML IV ONE (07:00)
[2020-10-28 07:52] VITALS: BP 122/77
[2020-10-28] MEDS: SOTALOL 80 MG (BETAPACE) TAB PO SCH ×2 (09:49→20:18)
[2020-10-28] MEDS: DIVALPROEX EXT RELEASE 250 MG (DEPAKOTE ER) TAB PO SCH ×2 (09:49→20:18)
[2020-10-28] MEDS: PANTOPRAZOLE 40 MG (PROTONIX) TAB PO SCH (09:49)
[2020-10-28] MEDS: LORATADINE (CLARITIN) 10 MG TAB PO SCH (09:49)
[2020-10-28] MEDS: FLUoxetine HCL 20 MG (PROzac) CAP PO SCH (09:49)
[2020-10-28] MEDS: CLOPIDOGREL 75 MG (PLAVIX) TABLET PO SCH (09:49)
[2020-10-28 11:31] VITALS: BP 126/73
--- NOTE | 2020-10-28 11:54 | Progress Note - Hospitalist ---
Subjective HPI/CC On Admission Date Seen by Provider: Oct 28, 2020 Time Seen by Provider: 10:30 Subjective/Events-last exam Patient remains dyspneic. Dr. Lawson is seen the patient consultation and feels like this may be infectious or foot inflammatory in nature. Otherwise patient is without complaint. Review of Systems Pulmonary: Dyspnea Focused Exam Lactate Level 10/26/20 08:40: Lactic Acid Level 1.01 Time of Focused Exam: 11:00 Objective Exam Vital Signs Vital Signs Date Time Temp Pulse Resp B/P (MAP) Pulse Ox O2 Delivery O2 Flow Rate FiO2 10/28/20 11:31 36.9 69 20 126/73 (90) 93 Vapotherm 20.00 75.00 10/28/20 09:54 75 Capillary Refill : Less Than 3 Seconds General Appearance: Chronically ill HEENT: Normal ENT Inspection Neck: Full Range of Motion, Normal Inspection, Non Tender, Supple Respiratory: Crackles, Decreased Breath Sounds Cardiovascular: Regular Rate, Rhythm, No Gallop, Normal Peripheral Pulses Gastrointestinal: Normal Bowel Sounds, Non Tender, Soft Rectal: Deferred Extremity: Normal Capillary Refill, Non Tender, No Calf Tenderness Neurologic/Psychiatric: Alert, Oriented x3, Depressed Affect Skin: Normal Color, Warm/Dry Results/Procedures Lab Patient resulted labs reviewed. Assessment/Plan Assessment and Plan Assess & Plan/Chief Complaint Diffuse interstitial infiltrates of uncertain etiology. Day #3 cefepime and vancomycin with improvement in the white count. Dr. Lawson added Zithromax and Eraxis, appreciate pulmonary consultation with Dr. Lawson. Patient may need lung biopsy or BAL for further diagnosis. History of pulmonary embolism with a [place] filter Possible pulmonary edema this morning we will give Lasix and decrease IV fluids Covid antibody positive with no history of known of Covid disease MOISES CLEMENT MD Oct 28, 2020 11:54
[2020-10-28 14:37] LABS: AMPHETAMINE SCREEN, URINE NEGATIVE (NEGATIVE); BARBITURATE SCREEN URINE NEGATIVE (NEGATIVE); BENZODIAZEPINES SCREEN URINE NEGATIVE (NEGATIVE); CANNABINOID SCREEN, URINE POSITIVE (NEGATIVE); COCAINE SCREEN URINE NEGATIVE (NEGATIVE); METHADONE STAT NEGATIVE (NEGATIVE); METHAMPHETAMINE SCREEN URINE S NEGATIVE (NEGATIVE); OPIATE SCREEN URINE NEGATIVE (NEGATIVE); OXYCODONE STAT NEGATIVE (NEGATIVE); PROPOXYPHENE STAT NEGATIVE (NEGATIVE); TRICYCLIC ANTIDEPRESSANTS SCRE NEGATIVE (NEGATIVE)
[2020-10-28] MEDS: ENOXAPARIN 40 MG/0.4 ML (LOVENOX) SYR SQ SCH (15:09)
[2020-10-28 16:19] VITALS: BP 124/78
[2020-10-28] MEDS: ASPIRIN 81 MG CHEW (CHILDREN'S ASA) PO SCH (20:18)
[2020-10-28] MEDS: ACETAMINOPHEN 325 MG TABLET PO PRN (20:18)
[2020-10-28] MEDS: ROSUVASTATIN 5 MG (CRESTOR) TABLET PO SCH (20:18)
[2020-10-28] MEDS: MIRTAZAPINE 15 MG (REMERON) TAB PO SCH (20:18)
[2020-10-28] MEDS: traZODone 50 MG (DESYREL) TAB PO SCH (20:24)
[2020-10-28 20:32] VITALS: BP 137/83
[2020-10-28 23:11] VITALS: BP 121/69
[2020-10-29] MEDS: RT-ALBUTEROL SULF 2.5 MG/3 ML PRE-MIX VIAL INH SCH ×6 (02:33→22:14)
[2020-10-29] MEDS: CEFEPIME 1,000 MG/SWFI 10 ML IV PUSH IV SCH ×8 (02:46→20:02)
[2020-10-29 03:05] VITALS: BP 118/72
[2020-10-29 05:45] LABS: BASOPHILS % (AUTO) 0 % (0-10); EOSINOPHILS # (AUTO) 0.5 10^3/uL (0.0-0.3); EOSINOPHILS % (AUTO) 4 % (0-10); HEMATOCRIT 32 % (40-54); HEMOGLOBIN 10.8 g/dL (13.3-17.7); LYMPHOCYTES # (AUTO) 1.4 10^3/uL (1.0-4.0); LYMPHOCYTES % (AUTO) 12 % (12-44); MEAN CORPUSCULAR HEMOGLOBIN 28 pg (25-34); MEAN CORPUSCULAR HGB CONC 33 g/dL (32-36); MEAN CORPUSCULAR VOLUME 83 fL (80-99); MEAN PLATELET VOLUME 8.6 fL (9.0-12.2); MONOCYTES # (AUTO) 1.1 10^3/uL (0.0-1.0); MONOCYTES % (AUTO) 10 % (0-12); NEUTROPHILS % (AUTO) 73 % (42-75); PLATELET COUNT 282 10^3/uL (130-400)
[2020-10-29 05:49] LABS: ALBUMIN 2.9 GM/DL (3.2-4.5); CHLORIDE 94 MMOL/L (98-107); POTASSIUM 3.9 MMOL/L (3.6-5.0); SODIUM 130 MMOL/L (135-145)
[2020-10-29 05:50] LABS: CALCIUM 8.8 MG/DL (8.5-10.1)
[2020-10-29 05:51] LABS: GLUCOSE 103 MG/DL (70-105); TOTAL PROTEIN 5.8 GM/DL (6.4-8.2)
[2020-10-29 05:53] LABS: BILIRUBIN,TOTAL 0.3 MG/DL (0.1-1.0); CARBON DIOXIDE 25 MMOL/L (21-32)
[2020-10-29 05:55] LABS: ALKALINE PHOSPHATASE 76 U/L (40-136); GFR ESTIMATED > 60
[2020-10-29 05:56] LABS: BUN/CREATININE RATIO 13
[2020-10-29 05:58] LABS: ALANINE AMINOTRANSFERASE 20 U/L (0-55)
--- NOTE | 2020-10-29 06:04 | Pulmonary Progress Note ---
Subjective Date Seen by a Provider: Oct 29, 2020 Time Seen by a Provider: 05:59 Subjective/Events-last exam Pt is still requiring a lot of oxygen. Sepsis Event Evaluation Height, Weight, BMI Height: 6'3.00" Weight: 200lbs. 6.4oz. 90.196807zz; 27.70 BMI Method:Estimated Focused Exam Lactate Level 10/26/20 08:40: Lactic Acid Level 1.01 Time of Focused Exam: 11:00 Exam Exam Vital Signs Date Time Temp Pulse Resp B/P (MAP) Pulse Ox O2 Delivery O2 Flow Rate FiO2 10/29/20 03:05 36.8 71 22 118/72 (87) 92 Vapotherm 20.00 70.00 10/29/20 02:33 96 Vapotherm 20.00 75 10/29/20 01:00 63 10/28/20 23:30 72 10/28/20 23:30 37.0 10/28/20 23:11 37.0 72 24 121/69 (86) 95 Vapotherm 20.00 70.00 10/28/20 22:32 96 Vapotherm 20.00 75 10/28/20 20:32 37.7 73 22 137/83 (101) 91 Vapotherm 20.00 75.00 10/28/20 20:20 Vapotherm 20.00 75 10/28/20 20:18 70 10/28/20 20:18 37.7 10/28/20 19:00 81 10/28/20 18:32 90 Vapotherm 20.00 75 10/28/20 16:19 37.0 70 20 124/78 (93) 94 Vapotherm 20.00 75.00 10/28/20 14:54 88 Vapotherm 20.00 75 10/28/20 12:23 71 10/28/20 11:31 36.9 69 20 126/73 (90) 93 Vapotherm 20.00 75.00 10/28/20 09:54 95 Vapotherm 20.00 75 10/28/20 08:00 Vapotherm 20.00 75 10/28/20 07:52 36.6 75 22 122/77 (92) 93 Vapotherm 25.00 75.00 10/28/20 07:14 73 10/28/20 07:04 93 Vapotherm 20.00 75 I & O 10/29/20 07:00 Intake Total 2790 ml Output Total 1700 ml Balance 1090 ml Height & Weight Height: 6'3.00" Weight: 200lbs. 6.4oz. 90.371857fo; 27.70 BMI Method:Estimated General Appearance: Chronically ill HEENT: Normal ENT Inspection Neck: Full Range of Motion, Normal Inspection, Non Tender, Supple Respiratory: Crackles, Decreased Breath Sounds Cardiovascular: Regular Rate, Rhythm, No Gallop, Normal Peripheral Pulses Capillary Refill: Less Than 3 Seconds Peripheral Pulses: 2+ Dorsalis Pedis (R), 2+ Left Dors-Pedis (L), 2+ Radial Pulses (R), 2+ Radial Pulses (L) Gastrointestinal: normal bowel sounds, non tender, soft Extremity: Normal Capillary Refill, Non Tender, No Calf Tenderness Neurologic/Psychiatric: Alert, Oriented x3, Depressed Affect Skin: Normal Color, Warm/Dry Results Lab Laboratory Tests 10/29/20 05:23 Assessment/Plan Assessment/Plan Acute respiratory/hypoxic failure -Currently on Vapotherm at 70% Bilateral interstitial PNA - failed out pt treatment -Start Cont pulse ox and titrate Fi02 aggressively -Continue Cefepime azithromycin and Eraxis -James cultures negative thus far -Will schedule bronchoscopy for this week. --Echo shows normal EF -Influenza is negative Legionella ag is negative -Check Viral respiratory panel Marijuana use -UDS is positive Hx of asbestos exposure -CT scan reviewed -- No findings consistent with Mesothelioma -No pleural or pulmonary calcifications -CT findings are more consistent with viral/atypical PNA, or acute in flammatory process Anemia -Monitor Hyponatremia -Monitor HX of PE -Pt has [place] filter Hx of marijuanna use -Check UDS Hx of CVA MADAN KHAN DO Oct 29, 2020 06:04
--- NOTE | 2020-10-29 07:42 | Diagnostic Imaging Report ---
EXAMINATION: Chest 1 view HISTORY: Shortness of breath COMPARISON: Chest radiograph 10/27/2020. FINDINGS: Heart size and pulmonary vasculature are stable. Stable patchy airspace opacities throughout both lungs. No pneumothorax or significant pleural fluid. The osseous structures are intact. IMPRESSION: 1. Stable patchy airspace opacities throughout both lungs suggestive of a multifocal pneumonia. Dictated by: Dictated on workstation # [id number]
[2020-10-29 08:20] VITALS: BP 126/77
[2020-10-29] MEDS: AZITHROMYCIN INJECTION 250 MG in NS (IVPB) 250 ML IV SCH (08:31)
[2020-10-29] MEDS: ANIDULAFUNGIN INJECTION 100 MG in NS (IVPB) 100 ML IV SCH (08:31)
[2020-10-29] MEDS: CLOPIDOGREL 75 MG (PLAVIX) TABLET PO SCH (08:32)
[2020-10-29] MEDS: DIVALPROEX EXT RELEASE 250 MG (DEPAKOTE ER) TAB PO SCH ×2 (08:32→20:02)
[2020-10-29] MEDS: FLUoxetine HCL 20 MG (PROzac) CAP PO SCH (08:32)
[2020-10-29] MEDS: PANTOPRAZOLE 40 MG (PROTONIX) TAB PO SCH (08:32)
[2020-10-29] MEDS: SOTALOL 80 MG (BETAPACE) TAB PO SCH ×2 (08:32→20:02)
[2020-10-29] MEDS: LORATADINE (CLARITIN) 10 MG TAB PO SCH (08:33)
[2020-10-29] MEDS ORDERED: polyethylene glycoL POWDER 17 GM (MIRALAX) PACK PO PRN (10:00)
[2020-10-29 12:00] VITALS: BP 119/73
--- NOTE | 2020-10-29 12:31 | Progress Note - Hospitalist ---
YOEL MCKEON [facility] 10/29/20 1231: Subjective HPI/CC On Admission Date Seen by Provider: Oct 29, 2020 Time Seen by Provider: 10:00 Subjective/Events-last exam Odilon is sitting up in his bed. He is on vapotherm. He is feeling slightly better. He is eating and drinking. No BM yet.Urinating without issue. Has not been up and moving. Denies pain. Denies Chest pain, N/V and F/C. Positive for increased back pain from mattress . Review of Systems General: No Chills, No Night Sweats Pulmonary: No Dyspnea, No Cough, No Pleuritic Chest Pain Cardiovascular: No: Chest Pain Gastrointestinal: No: Nausea, Vomiting, Abdominal Pain Genitourinary: No Dysuria, No Frequency Focused Exam Time of Focused Exam: 11:00 Objective Exam Vital Signs Vital Signs Date Time Temp Pulse Resp B/P (MAP) Pulse Ox O2 Delivery O2 Flow Rate FiO2 10/29/20 10:44 91 Vapotherm 20.00 70 10/29/20 10:32 74 10/29/20 08:20 37.1 18 126/77 (93) Capillary Refill : Less Than 3 Seconds General Appearance: No Apparent Distress, Chronically ill Respiratory: Chest Non Tender, No Respiratory Distress, Wheezing (BL) Cardiovascular: No Edema, Normal Peripheral Pulses Gastrointestinal: Non Tender, Soft Extremity: Normal Capillary Refill, No Calf Tenderness Neurologic/Psychiatric: Alert, Oriented x3 Skin: Normal Color, Warm/Dry Lymphatic: No Adenopathy Results/Procedures Lab Laboratory Tests 10/29/20 05:23 Patient resulted labs reviewed. Assessment/Plan Assessment and Plan Assess & Plan/Chief Complaint Assessment: 1. Acute respiratory/hypoxic failure - appreciate pulmonary recs - respiratory therapy - Possible bronchoscopy 2. BL interstitial PNA - continue abx - appreciate pulmonary recs 3. Marjauna use - smoking cessation 4. Anemia - monitor 5. Hyponatremia - monitor 6. Hx of PE and CVA - yolie filter Plan 10/29 - continue abx and respiratory therapy - ordered PT - Ordered Miralax and Senna - appreciate pulmonary recs - will monitor labs PARIS SPRINGER DO 10/30/20 0512: Subjective Subjective/Events-last exam Pt doing pretty well Dyspnea is considerable Vapotherm maintained Right sided weakness is a significant problem for him Dr. Lawson consulted, will likely need bronchoscopy Maintain on Eraxis and Cefepime and Azithromycin Bowels will be treated with laxatives Air mattress for breakdown on buttocks Review of Systems General: Fatigue Pulmonary: Dyspnea Objective Exam General Appearance: Anxious, Chronically ill, Mild Distress Respiratory: No Accessory Muscle Use, No Respiratory Distress, Decreased Breath Sounds, Wheezing (BL) Cardiovascular: Regular Rate, Rhythm Neurologic/Psychiatric: Alert, Oriented x3, No Motor/Sensory Deficits, Normal Mood/Affect Assessment/Plan Assessment and Plan Assess & Plan/Chief Complaint May need BAL PT OT Air mattress Supervisory-Addendum Brief Verification & Attestation Participated in pt care: history, MDM, physical Personally performed: exam, history, MDM, supervision of care Care discussed with: Medical Student Procedures: n/a Results interpretation: Verified all documentation Verification and Attestation of Medical Student E/M Service A medical student performed and documented this service in my presence. I reviewed and verified all information documented by the medical student and made modifications to such information, when appropriate. I personally performed the physical exam and medical decision making. Paris Springer, Oct 30, 2020,05:11 YOEL MCKEON [facility] Oct 29, 2020 12:31 PARIS SPRINGER DO Oct 30, 2020 05:12
--- NOTE | 2020-10-29 13:31 | Physical Therapy Evaluation ---
PT Evaluation-General Medical Diagnosis Admission Date Oct 26, 2020 at 09:40 Medical Diagnosis: hypoxia/pneumonia/acute resp. failure Onset Date: Oct 26, 2020 Therapy Diagnosis Therapy Diagnosis: decreased pulmonay function Height/Weight Height (Feet): 6 Height (Inches): 3.00 Weight (Pounds): 200 Weight (Ounces): 6.4 Precautions Precautions/Isolations: Fall Prevention, Standard Precautions Referral Physician: Gian Reason for Referral: Evaluation/Treatment Medical History Pertinent Medical History: CVA Additional Medical History PE/Le's esophagus/hepatitis Current History ER secondary to SOA Reviewed History: Yes Social History Home: Single Level Current Living Status: Spouse Prior Prior Level of Function SCALE: Activities may be completed with or without assistive devices. 2-Ixomtajklh-zufbphd completes the activity by him/herself with no assistance from a helper. 5-Set-up or Clean-up Assistance-helper sets up or cleans up; patient completes activity. [place] assists only prior to or following the activity. 4-Supervision or Touching Assistance-helper provides verbal cues and/or touching/steadying and/or contact guard assistance as patient completes activity. Assistance may be provided throughout the activity or intermittently. 3-Partial/Moderate Assistance-helper does LESS THAN HALF the effort. [place] lifts, holds or supports trunk or limbs, but provides less than half the effort. 2-Substantial/Maximal Assistance-helper does MORE THAN HALF the effort. [place] lifts or holds trunk or limbs and provides more than half the effort. 2-Wfjryszrz-jkwdlh does ALL the effort. Patient does none of the effort to complete the activity. Or, the assistance of 2 or more helpers is required for the patient to complete the activity. If activity was not attempted, code reason: 7-Patient Refused. 9-Not Applicable-not attempted and the patient did not perform the activity before the current illness, exacerbation or injury. 10-Not Attempted due to Environmental Limitations-(lack of equipment, weather restraints, etc.). 88-Not Attempted due to Medical Conditions or Safety Concerns. Bed Mobility: 6 Transfers (B,C,W/C): 6 Gait: 6 Stairs: 6 Indoor Mobility (Ambulation): Independent Stairs: Independent Prior Devices Use: None PT Evaluation-Current Subjective Patient agrees to PT. He states, "I don't need any help." Objective Patient Orientation: Normal For Age Attachments: Oxygen (vapotherm) ROM/Strength ROM Lower Extremities bilateral LE WFL Strength Lower Extremities 5/5 grossly bilateral LE Integumentary/Posture Integumentary refer to nursing notes Bowel Incontinence: No Bladder Incontinence: No Posture WFL Neuromuscular (Tone, Coordination, Reflexes) grossly intact Sensory Vision: Wears Glasses Hearing: Functional Transfers Roll Left to Right (QC): 6 Sit to Lying (QC): 6 Lying to Sitting/Side of Bed(Q: 6 Sit to Stand (QC): 6 Chair/Jlf-of-Rngmt Xfer(QC): 6 Toilet Transfer (QC): 6 Gait Does the Patient Walk?: Yes Mode of Locomotion: Walk Anticipated Mode of Locomotion: Walk Walk 10 feet (QC): 6 (limited by vapotherm to ambulate distance) Gait Assistive Device: None Balance Sitting Static: Normal Sitting Dynamic: Normal Standing Static: Normal Standing Dynamic: Normal Picking up an Object (QC): 6 Assessment/Needs 55 y.o. male, currently limited by decreased pulmonary function. Patient is independent with all gross motor skills. PT will see patient x 2 sessions to initiate HEP to address pulmonary function. Rehab Potential: Fair PT Short Term Goals Short Term Goals Time Frame: Oct 30, 2020 Roll Left & Right: 6 Sit to lyin Lying to sitting on side of be: 6 Sit to stand: 6 Chair/tyw-ls-grplf transfer: 6 Toilet transfer: 6 Walk 10 feet: 6 HEP PT Plan Treatment/Plan Treatment Plan: Continue Plan of Care Treatment Plan: Education, Functional Activity Erin, Therapeutic Exercise Treatment Duration: Oct 30, 2020 Frequency: 2 times per week Estimated Hrs Per Day: .25 hour per day Patient and/or Family Agrees t: Yes Discharge Recommendations Therapy Discharge Recommendati: Home & Family Time/GCodes Time In: 1250 Time Out: 1308 Total Billed Treatment Time: 18 Total Billed Treatment 1 visit EVMod 18 min GWENDOLYN AYALA PT Oct 29, 2020 13:31
--- NOTE | 2020-10-29 13:32 | Occupational Therapy Eval ---
OT Evaluation-General/PLF Medical Diagnosis Admission Date Oct 26, 2020 at 09:40 Medical Diagnosis: PNA Onset Date: Oct 26, 2020 Therapy Diagnosis Therapy Diagnosis: Pneumonia; decreased strength Height/Weight Height (Feet): 6 Height (Inches): 3.00 Weight (Pounds): 200 Weight (Ounces): 6.4 Precautions Precautions/Isolations: Fall Prevention, Standard Precautions Weight Bear Status Weight Bearing Restriction: Full Weight Bearing Referral Referral Reason: Activity Tolerance, Self Care, Evaluation/Treatment, Strengthening/ROM Medical History Pertinent Medical History: CVA, GERD, HTN Additional Medical History CVA (2014 R geovanny), HTN, HLD, anxiety, GERD, suicide attempts, depression Current History Pt admitted with PNA previously per pt, hospitalization for a couple days prior to d/c home with antibiotics. Pt expresses increased in fx to the point he did not require supplemental 02 during the day. Pt continued use at night; however, pt increased in SOB/ chills/ temperature increase to 102 at home. Pt admits with PNA Reviewed History: Yes Social History Home: Single Level Current Living Status: Spouse Entry Into Home: Stairs With Railing Steps Into Home: 5 Steps Inside Home: 0 ADL-Prior Level of Function SCALE: Activities may be completed with or without assistive devices. 2-Xanojnsxlg-zkbjfnn completes the activity by him/herself with no assistance from a helper. 5-Set-up or Clean-up Assistance-helper sets up or cleans up; patient completes activity. [place] assists only prior to or following the activity. 4-Supervision or Touching Assistance-helper provides verbal cues and/or touching/steadying and/or contact guard assistance as patient completes activity. Assistance may be provided throughout the activity or intermittently. 3-Partial/Moderate Assistance-helper does LESS THAN HALF the effort. [place] lifts, holds or supports trunk or limbs, but provides less than half the effort. 2-Substantial/Maximal Assistance-helper does MORE THAN HALF the effort. [place] lifts or holds trunk or limbs and provides more than half the effort. 3-Gzsyofktl-hgwasn does ALL the effort. Patient does none of the effort to complete the activity. Or, the assistance of 2 or more helpers is required for the patient to complete the activity. If activity was not attempted, code reason: 7-Patient Refused. 9-Not Applicable-not attempted and the patient did not perform the activity before the current illness, exacerbation or injury. 10-Not Attempted due to Environmental Limitations-(lack of equipment, weather restraints, etc.). 88-Not Attempted due to Medical Conditions or Safety Concerns. ADL PLOF Comments Pt IND at home with I/ADLs without use of AD, though does not drive Self Care: Independent Functional Cognition: Independent DME/Equipment: Bath Chair, Grab Bars, Shower Occupation: disabled Drive Self: No OT Current Status Subjective Pt AxO, upright in chair upon entry. Pt's 02 at rest >90%. Pt agrees to tx, stating has increased pain in bottom due to sitting in bed. Mental Status/Objective Patient Orientation: Person, Place, Situation, Normal For Age Attachments: Oxygen (biPAP) Current Glasses/Contacts: Yes Hearing Aids: No Dentures/Partials: Yes Hand Dominance: Left Upper Extremity ROM WFL BUE Upper Extremity Coordination WFL BUE (though R requires increased time) Upper Extremity Sensation DNT Upper Extremity Strength WFL BUE (R 4/5, L 5/5) Edema: none ADL-Treatment Eating (QC): 6 (completes with IND) Oral Hygiene (QC): 6 (based on clinical reasoning, pt IND with task.) Upper Body Dressing (QC): 6 (based on clinical reasoning, pt IND with task.) Lower Body Dressing (QC): 6 (per pt. on this date donned with IND.) On/Off Footwear (QC): 6 (per pt. on this date donned with IND.) Toileting Hygiene (QC): 7 Other Treatments Pt upright in chair, sit to stand with SBA, no use of AD. Good balance. Waffle cushion placed under bottom for pain management. Pt completes minimal feeding tasks, completes MMT/ ROM and home environment screening. Upon increased conversation, pt's 02 dips to high 80s, recovers within a couple minutes. Pt states physically at PLOF, states is willing/ able to assist at home if needed. Pt is given yellow theraband with instructions for use for increased pulmonary/ UE endurance. Pt educated on monitoring vitals throughout. Completes 10 reps of back flies and shoulder flexion bilaterally. 02 maintains >90%. Pt educated to continue this through day, though monitor self. Pt agrees. Pt left in recliner with all needs met, call light in reach. Pt at [facility] with I/ADLs, no skilled OT at this time. D/c. Education OT Patient Education: Correct positioning, Exercise program, Home exercise program, Progress toward Goal/Update tx plan, Purpose of tx/functional activities, Safety issues Teaching Recipient: Patient Teaching Methods: Demonstration, Discussion Response to Teaching: Verbalize Understanding, Return Demonstration OT Alf Goals Alf Goals 1=Demonstrate adherence to instructed precautions during ADL tasks. 2=Patient will verbalize/demonstrate understanding of assistive devices/modifications for ADL. 3=Patient will improve strength/tolerance for activity to enable patient to perform ADL's. OT Education/Plan Problem List/Assessment Assessment: No Skilled OT Needs ID'd Discharge Recommendations Plan/Recommendations: Discontinue OT Therapy Discharge Recommendati: Home & Family Treatment Plan/Plan of Care Treatment,Training & Education: Yes Patient would benefit from OT for education, treatment and training to promote independence in ADL's, mobility, safety and/or upper extremity function for ADL's. Plan of Care: OTHER (eval and d/c. ) Treatment Duration: Oct 29, 2020 Frequency: 1 time per week (eval and dc) Time/GCodes Start Time: 13:11 Stop Time: 13:24 Total Time Billed (hr/min): 13 Billed Treatment Time 1, EVL (13) Pt at [facility] with I/ADLs, no skilled OT at this time. D/c. JOHN MIRELES OTR Oct 29, 2020 13:32
[2020-10-29] MEDS: ENOXAPARIN 40 MG/0.4 ML (LOVENOX) SYR SQ SCH (14:22)
[2020-10-29 15:15] VITALS: BP 119/73
[2020-10-29 15:40] VITALS: BP 141/86
[2020-10-29 19:01] VITALS: BP 118/67
[2020-10-29] MEDS: ROSUVASTATIN 5 MG (CRESTOR) TABLET PO SCH (20:02)
[2020-10-29] MEDS: traZODone 50 MG (DESYREL) TAB PO SCH (20:02)
[2020-10-29] MEDS: ASPIRIN 81 MG CHEW (CHILDREN'S ASA) PO SCH (20:03)
[2020-10-29] MEDS: MIRTAZAPINE 15 MG (REMERON) TAB PO SCH (20:03)
[2020-10-30] VITALS (7 sets, daily range): BP systolic 110–143; BP diastolic 66–79
[2020-10-30] MEDS: RT-ALBUTEROL SULF 2.5 MG/3 ML PRE-MIX VIAL INH SCH ×6 (02:19→21:42)
[2020-10-30] MEDS: CEFEPIME 1,000 MG/SWFI 10 ML IV PUSH IV SCH ×8 (03:25→20:00)
[2020-10-30 05:35] LABS: BASOPHILS % (AUTO) 0 % (0-10); EOSINOPHILS # (AUTO) 0.5 10^3/uL (0.0-0.3); NEUTROPHILS % (AUTO) 69 % (42-75)
[2020-10-30 05:36] LABS: EOSINOPHILS % (AUTO) 4 % (0-10); HEMATOCRIT 28 % (40-54); HEMOGLOBIN 9.2 g/dL (13.3-17.7); LYMPHOCYTES # (AUTO) 1.6 10^3/uL (1.0-4.0); LYMPHOCYTES % (AUTO) 15 % (12-44); MEAN CORPUSCULAR HEMOGLOBIN 27 pg (25-34); MEAN CORPUSCULAR HGB CONC 33 g/dL (32-36); MEAN CORPUSCULAR VOLUME 82 fL (80-99); MEAN PLATELET VOLUME 9.3 fL (9.0-12.2); MONOCYTES # (AUTO) 1.2 10^3/uL (0.0-1.0); MONOCYTES % (AUTO) 11 % (0-12); NEUTROPHILS # (AUTO) 7.5 10^3/uL (1.8-7.8); PLATELET COUNT 365 10^3/uL (130-400); WHITE BLOOD COUNT 10.9 10^3/uL (4.3-11.0)
[2020-10-30 05:47] LABS: ALBUMIN 2.9 GM/DL (3.2-4.5)
[2020-10-30 05:48] LABS: CHLORIDE 90 MMOL/L (98-107); SODIUM 126 MMOL/L (135-145)
[2020-10-30 05:49] LABS: CALCIUM 8.8 MG/DL (8.5-10.1)
[2020-10-30 05:50] LABS: GLUCOSE 102 MG/DL (70-105)
[2020-10-30 05:51] LABS: CARBON DIOXIDE 25 MMOL/L (21-32)
[2020-10-30 05:52] LABS: BILIRUBIN,TOTAL 0.4 MG/DL (0.1-1.0)
[2020-10-30 05:53] LABS: ALKALINE PHOSPHATASE 76 U/L (40-136)
[2020-10-30 05:54] LABS: CREATININE SERUM 0.65 MG/DL (0.60-1.30); GFR ESTIMATED > 60
[2020-10-30 05:55] LABS: BUN/CREATININE RATIO 12
[2020-10-30 05:56] LABS: ALANINE AMINOTRANSFERASE 26 U/L (0-55)
[2020-10-30] MEDS: AZITHROMYCIN INJECTION 250 MG in NS (IVPB) 250 ML IV SCH (08:33)
[2020-10-30] MEDS: ANIDULAFUNGIN INJECTION 100 MG in NS (IVPB) 100 ML IV SCH (08:34)
[2020-10-30] MEDS: FLUoxetine HCL 20 MG (PROzac) CAP PO SCH (08:34)
[2020-10-30] MEDS: CLOPIDOGREL 75 MG (PLAVIX) TABLET PO SCH (08:35)
[2020-10-30] MEDS: PANTOPRAZOLE 40 MG (PROTONIX) TAB PO SCH (08:35)
[2020-10-30] MEDS: LORATADINE (CLARITIN) 10 MG TAB PO SCH (08:35)
[2020-10-30] MEDS: DIVALPROEX EXT RELEASE 250 MG (DEPAKOTE ER) TAB PO SCH ×2 (08:35→20:01)
[2020-10-30] MEDS: SOTALOL 80 MG (BETAPACE) TAB PO SCH ×2 (08:38→20:02)
--- NOTE | 2020-10-30 10:02 | Physical Therapy Daily Note ---
PT Daily Note-Current Subjective Patient reluctantly agrees to PT. Remains on vapotherm 80%/20L Mental Status Patient Orientation: Normal For Age Attachments: Oxygen (vapotherm), IV Transfers SCALE: Activities may be completed with or without assistive devices. 9-Bhqkrqalqn-dumikhn completes the activity by him/herself with no assistance from a helper. 5-Set-up or Clean-up Assistance-helper sets up or cleans up; patient completes activity. [place] assists only prior to or following the activity. 4-Supervision or Touching Assistance-helper provides verbal cues and/or touching/steadying and/or contact guard assistance as patient completes activity. Assistance may be provided throughout the activity or intermittently. 3-Partial/Moderate Assistance-helper does LESS THAN HALF the effort. [place] lifts, holds or supports trunk or limbs, but provides less than half the effort. 2-Substantial/Maximal Assistance-helper does MORE THAN HALF the effort. [place] lifts or holds trunk or limbs and provides more than half the effort. 7-Wuwjpqkex-zovgkn does ALL the effort. Patient does none of the effort to complete the activity. Or, the assistance of 2 or more helpers is required for the patient to complete the activity. If activity was not attempted, code reason: 7-Patient Refused. 9-Not Applicable-not attempted and the patient did not perform the activity before the current illness, exacerbation or injury. 10-Not Attempted due to Environmental Limitations-(lack of equipment, weather restraints, etc.). 88-Not Attempted due to Medical Conditions or Safety Concerns. Roll Left & Right (QC): 6 Lying to Sitting/Side of Bed(Q: 6 Sit to Stand (QC): 6 Chair/Any-cs-Kmooj Xfer(QC): 6 Gait Training Does the Patient Walk?: Yes Distance: 10' x 5 Walk 10 feet (QC): 6 (restricted due to vapotherm ) Walk 50 ft with 2 Turns(QC): 6 Gait Assistive Device: None Exercises Standing: Marching Standing Reps: 20 Assessment Patient is independent with all gross motor skills, however, pulmonary function is compromised. Noted decrease in SAO2 with minimal activity. Education on pursed lip breathing due to patient is a mouth breather. PT to continue to address pulmonary function with exercise and gait as tolerated with limitations. Refer to modified POC. PT Short Term Goals Short Term Goals Time Frame: Nov 09, 2020 Roll Left & Right: 6 Sit to lyin Lying to sitting on side of be: 6 Sit to stand: 6 Chair/eos-kg-qriee transfer: 6 Toilet transfer: 6 Walk 10 feet: 6 Walk 50 feet with two turns: 6 Walk 150 feet: 6 PT Plan Treatment/Plan Treatment Plan: Continue Plan of Care Treatment Plan: Education, Functional Activity Erin, Therapeutic Exercise Treatment Duration: Nov 09, 2020 Frequency: 6 times per week Estimated Hrs Per Day: .25 hour per day Patient and/or Family Agrees t: Yes Time/GCodes Time In: 921 Time Out: 931 Total Billed Treatment Time: 10 Total Billed Treatment 1 visit EX 10 min GWENDOLYN AYALA PT Oct 30, 2020 10:02
--- NOTE | 2020-10-30 11:20 | Progress Note - Hospitalist ---
YOEL MCKEON [facility] 10/30/20 1120: Subjective HPI/CC On Admission Date Seen by Provider: Oct 30, 2020 Time Seen by Provider: 09:55 Subjective/Events-last exam Odilon was sitting up in the chair and is on vapotherm. Did not sleep well. Anxious towards bed time. Denies any pain. Does not have much of an appetite. BM on 10/29 and urinating without issue. Started working with PT. He feels his breath ing is minimally improved. Denies N/V, F/C, Chest pain, Abdominal pain and blood in stool or urine at this time. Review of Systems General: No Chills Pulmonary: Dyspnea Cardiovascular: No: Chest Pain, Palpitations Gastrointestinal: No: Nausea, Vomiting, Abdominal Pain Genitourinary: No Dysuria Neurological: Weakness Focused Exam Time of Focused Exam: 11:00 Objective Exam Vital Signs Vital Signs Date Time Temp Pulse Resp B/P (MAP) Pulse Ox O2 Delivery O2 Flow Rate FiO2 10/30/20 10:39 96 Vapotherm 20.00 70 10/30/20 08:38 75 10/30/20 08:00 37.1 21 110/72 (85) Capillary Refill : Less Than 3 Seconds General Appearance: No Apparent Distress, Chronically ill Neck: Full Range of Motion, Non Tender Respiratory: Chest Non Tender, Accessory Muscle Use (minimal ), Crackles (R>L), Wheezing Cardiovascular: Regular Rate, Rhythm, Normal Peripheral Pulses Gastrointestinal: Normal Bowel Sounds, Non Tender, Soft Extremity: No Calf Tenderness Neurologic/Psychiatric: Alert, Oriented x3 Skin: Normal Color, Warm/Dry Lymphatic: No Adenopathy Results/Procedures Lab Laboratory Tests 10/30/20 05:14 Patient resulted labs reviewed. Assessment/Plan Assessment and Plan Assess & Plan/Chief Complaint Assessment: 1. Acute respiratory/hypoxic failure - appreciate pulmonary recs - respiratory therapy - Possible bronchoscopy 2. BL interstitial PNA - continue abx - appreciate pulmonary recs 3. Marjauna use - smoking cessation 4. Anemia - monitor 5. Hyponatremia - monitor 6. Hx of PE and CVA - yolie filter Plan 10/29 - continue abx and respiratory therapy - Continue PT - Fluid restriction for hyponatremia - TSH ordered - appreciate pulmonary recs, note reviewed - will monitor labs PARIS SPRINGER DO 10/31/20 0548: Subjective Subjective/Events-last exam Pt upright in a chair PT and OT ordered Sodium level 126 prompting fluid restriction of 1000 CCs per day Xanax 0.5 Q4 prn will be given for anxiety Bowels moved after laxatives given Air mattress helping his buttocks Overall very slow recovery, maintained on Vapotherm Review of Systems General: Fatigue Pulmonary: Dyspnea Objective Exam General Appearance: No Apparent Distress, WD/WN, Anxious, Chronically ill Respiratory: Accessory Muscle Use (minimal ), Crackles (R>L), Wheezing Cardiovascular: Regular Rate, Rhythm Assessment/Plan Assessment and Plan Assess & Plan/Chief Complaint Fluid restriction Monitor sodium level Vapotherm Supervisory-Addendum Brief Verification & Attestation Participated in pt care: history, MDM, physical Personally performed: exam, history, MDM, supervision of care Care discussed with: Medical Student Procedures: n/a Results interpretation: Verified all documentation Verification and Attestation of Medical Student E/M Service A medical student performed and documented this service in my presence. I reviewed and verified all information documented by the medical student and made modifications to such information, when appropriate. I personally performed the physical exam and medical decision making. Paris Springer, Oct 31, 2020,05:47 YOEL MCKEON [facility] Oct 30, 2020 11:20 PARIS SPRINGER DO Oct 31, 2020 05:48
[2020-10-30] MEDS: ENOXAPARIN 40 MG/0.4 ML (LOVENOX) SYR SQ SCH (15:52)
--- NOTE | 2020-10-30 17:15 | Physician Query Clarification ---
"Physician Query-General Query to Physician: The medical record reflects the following clinical scenario: The patient, in the setting of Failed outpatient treatment of pneumonia, P 78,RR 29, BP 128/56, SpO2 82% on 2L, T 36.4, WBC 19.0, With ER Treatment: LR 2L, Cefepime, Vancomycin Question: Do you agree with the impression of Sepsis per Dr Trever Martines and Dr. Fiordaliza Marlow? If you agree, please document in Progress Notes or Discharge Summary. 1. Yes; will document Sepsis due to Bilateral interstitial pneumonia present on admission, resolved in the Progress Notes 2. No; will continue to document Bilateral interstitial Pneumonia in the Progress Notes 3. Other; will document explanation of clinical findings 4. Clinically undetermined; no explanation for clinical findings Please remember a lack of response to the above will prompt a phone page by CDI/coding staff. In responding to this query, please exercise your independent professional judgment. The purpose of this communication is to more accurately reflect the complexity of your patients condition. The fact that a question is asked does not imply that any particular answer is desired or expected. Thank you for timely response to this clarification. Bela Marshall, MSN, RN RN Specialist-Clinical Doc Improvement CD -Health Info Mgmt Operations [address] [facility] t: [phone] | f: [phone] If you are unable to reach me at my extension, I may be working from home. Please contact me at [phone] PHYSICIAN RESPONSE: Based on the clinical findings in the record, please respond to the query above on this document as an addendum. Physician Response: Physician Response I didn't d/c this patient? If you have questions please contact: Pot Room Supervisor: Ext: Thank you for your time and cooperation. Clinical Fruit Loader/Pot Room Supervisor This is a permanent part of the medical record BELA MARSHALL Oct 30, 2020 17:15 MOISES MARTINES MD Oct 31, 2020 11:10"
[2020-10-30] MEDS: ALPRAZolam 0.5 MG (XANAX) TAB PO PRN ×2 (18:35→23:22)
[2020-10-30] MEDS: MIRTAZAPINE 15 MG (REMERON) TAB PO SCH (20:01)
[2020-10-30] MEDS: ROSUVASTATIN 5 MG (CRESTOR) TABLET PO SCH (20:01)
[2020-10-30] MEDS: traZODone 50 MG (DESYREL) TAB PO SCH (20:01)
[2020-10-30] MEDS: ASPIRIN 81 MG CHEW (CHILDREN'S ASA) PO SCH (20:01)
[2020-10-31] VITALS (19 sets, daily range): BP systolic 101–129; BP diastolic 64–89
[2020-10-31] MEDS: RT-ALBUTEROL SULF 2.5 MG/3 ML PRE-MIX VIAL INH SCH ×6 (02:31→21:38)
[2020-10-31] MEDS: CEFEPIME 1,000 MG/SWFI 10 ML IV PUSH IV SCH ×8 (03:14→20:23)
[2020-10-31] MEDS: ALPRAZolam 0.5 MG (XANAX) TAB PO PRN (05:20)
--- NOTE | 2020-10-31 05:41 | Pulmonary Progress Note ---
Subjective Time Seen by a Provider: 05:38 Subjective/Events-last exam Pt is requiring more oxygen via Vapotherm. Sepsis Event Evaluation Height, Weight, BMI Height: 6'3.00" Weight: 200lbs. 6.4oz. 90.313248hj; 27.70 BMI Method:Estimated Focused Exam Time of Focused Exam: 11:00 Exam Exam Vital Signs Date Time Temp Pulse Resp B/P (MAP) Pulse Ox O2 Delivery O2 Flow Rate FiO2 10/31/20 03:13 36.8 72 20 124/73 (90) 91 Vapotherm 25.00 80.00 10/31/20 02:31 90 Vapotherm 25.00 80 10/31/20 01:00 66 10/30/20 23:19 37.3 73 20 129/66 (87) 93 Vapotherm 20.00 70.00 10/30/20 21:42 91 Vapotherm 20.00 70 10/30/20 20:02 87 10/30/20 20:00 95 Vapotherm 20.00 70 10/30/20 19:33 37.5 87 18 143/79 (100) 92 Vapotherm 20.00 70.00 10/30/20 19:00 90 10/30/20 18:15 95 Vapotherm 20.00 70 10/30/20 15:49 36.9 77 18 120/70 (87) 93 Vapotherm 20.00 70.00 10/30/20 14:13 91 Vapotherm 20.00 70 10/30/20 12:26 77 10/30/20 12:00 36.7 75 22 115/71 (86) 94 10/30/20 10:39 96 Vapotherm 20.00 70 10/30/20 08:38 75 10/30/20 08:00 94 Vapotherm 20.00 80 10/30/20 08:00 37.1 75 21 110/72 (85) 95 10/30/20 06:32 77 10/30/20 06:30 95 Vapotherm 20.00 80 I & O 10/31/20 07:00 Intake Total 890 ml Output Total 1700 ml Balance -810 ml Height & Weight Height: 6'3.00" Weight: 200lbs. 6.4oz. 90.215697hr; 27.70 BMI Method:Estimated General Appearance: No Apparent Distress, Chronically ill HEENT: Normal ENT Inspection Neck: Full Range of Motion, Non Tender Respiratory: Chest Non Tender, Accessory Muscle Use (minimal ), Crackles (R>L), Wheezing Cardiovascular: Regular Rate, Rhythm, Normal Peripheral Pulses Capillary Refill: Less Than 3 Seconds Peripheral Pulses: 2+ Dorsalis Pedis (R), 2+ Left Dors-Pedis (L), 2+ Radial Pulses (R), 2+ Radial Pulses (L) Gastrointestinal: normal bowel sounds, non tender, soft Extremity: No Calf Tenderness Neurologic/Psychiatric: Alert, Oriented x3 Skin: Normal Color, Warm/Dry Lymphatic: No Adenopathy Results Lab Laboratory Tests 10/30/20 05:14 Assessment/Plan Assessment/Plan Acute respiratory/hypoxic failure -Currently on Vapotherm at 70% -LABS PENDING Bilateral interstitial PNA - Probably post COVID syndrome -Start Cont pulse ox and titrate Fi02 aggressively -Continue Cefepime azithromycin and Eraxis -Hold off on bronchoscopy secondary to oxygen requirments -Give Lasix 60mg IV x 1 -Start Solumedrol 40IV Q 16 -Check ABG -Transfer pt to ICU secondary to worsening oxygen requirements. -James cultures negative thus far --Echo shows normal EF -Influenza is negative Legionella ag is negative -Check Viral respiratory panel -- pending Marijuana use -UDS is positive Hx of asbestos exposure -CT scan reviewed -- No findings consistent with Mesothelioma -No pleural or pulmonary calcifications -CT findings are more consistent with viral/atypical PNA, or acute inflammatory process Anemia -Monitor Hyponatremia -Monitor HX of PE -Pt has Vignesh filter Hx of CV MADAN KHAN DO Oct 31, 2020 05:41
[2020-10-31] MEDS ORDERED: FUROSEMIDE 40 MG/4 ML INJ (LASIX) IVP ONE (05:45)
[2020-10-31] MEDS: methylPREDNISolone 40 MG/ML (Solu-MEDROL) VIAL IV SCH ×4 (05:59→22:53)
[2020-10-31 06:07] LABS: BASOPHILS % (AUTO) 0 % (0-10); EOSINOPHILS # (AUTO) 0.5 10^3/uL (0.0-0.3); EOSINOPHILS % (AUTO) 5 % (0-10); HEMATOCRIT 29 % (40-54); HEMOGLOBIN 9.6 g/dL (13.3-17.7); LYMPHOCYTES # (AUTO) 1.6 10^3/uL (1.0-4.0); LYMPHOCYTES % (AUTO) 16 % (12-44); MEAN CORPUSCULAR HEMOGLOBIN 27 pg (25-34); MEAN CORPUSCULAR HGB CONC 33 g/dL (32-36); MEAN CORPUSCULAR VOLUME 82 fL (80-99); MEAN PLATELET VOLUME 8.7 fL (9.0-12.2); MONOCYTES % (AUTO) 11 % (0-12); NEUTROPHILS # (AUTO) 6.6 10^3/uL (1.8-7.8); NEUTROPHILS % (AUTO) 68 % (42-75); PLATELET COUNT 316 10^3/uL (130-400); WHITE BLOOD COUNT 9.8 10^3/uL (4.3-11.0)
[2020-10-31 06:16] LABS: ALBUMIN 2.9 GM/DL (3.2-4.5); CHLORIDE 91 MMOL/L (98-107); POTASSIUM 4.1 MMOL/L (3.6-5.0); SODIUM 128 MMOL/L (135-145)
[2020-10-31 06:17] LABS: CALCIUM 8.8 MG/DL (8.5-10.1)
[2020-10-31 06:19] LABS: GLUCOSE 97 MG/DL (70-105)
[2020-10-31 06:20] LABS: BILIRUBIN,TOTAL 0.3 MG/DL (0.1-1.0); CARBON DIOXIDE 26 MMOL/L (21-32)
[2020-10-31 06:22] LABS: ALKALINE PHOSPHATASE 83 U/L (40-136); CREATININE SERUM 0.66 MG/DL (0.60-1.30); GFR ESTIMATED > 60
[2020-10-31 06:23] LABS: BUN/CREATININE RATIO 12
[2020-10-31 06:25] LABS: ALANINE AMINOTRANSFERASE 29 U/L (0-55)
[2020-10-31 06:33] LABS: ABG BASE EXCESS 6.2 MMOL/L (-2.5-2.5); ABG OXYGEN SATURATION 97 % (94-100); ABG PCO2 43 MMHG (35-45); ABG PH 7.46 (7.37-7.43); ABG PO2 89 MMHG (79-93); ABG TCO2 31.3 MMOL/L (21.0-31.0); ALLENS TEST YES-POS; INSPIRED O2 80%; PATIENT TEMP 37.4; VENTILATOR NO
--- NOTE | 2020-10-31 08:13 | Physical Therapy Progress Note ---
Therapy Progress Note Patient in being transferred to ICU, will need new orders to continue therapy when appropriate, will notify nurse. ALEXANDRE LEON PT Oct 31, 2020 08:13
--- NOTE | 2020-10-31 08:39 | Diagnostic Imaging Report ---
INDICATION: Shortness of air. Time of exam 6:08 AM Correlation is made with prior chest 10/29/2020. Extensive airspace infiltrate throughout both lungs persists shows no real change. There is no effusion. No pneumothorax. Heart size stable. IMPRESSION: Continued 5 lobe pulmonary infiltrates, similar to examination 2 days earlier. Dictated by: Dictated on workstation # [id number]
[2020-10-31] MEDS ORDERED: WATER (STERILE) FOR INJECTION 10 ML ONE ×3 (09:40→20:17)
[2020-10-31] MEDS ORDERED: CEFEPIME 1 GM/10 ML (MAXIPIME) VIAL ONE ×3 (09:40→20:16)
[2020-10-31] MEDS: SOTALOL 80 MG (BETAPACE) TAB PO SCH ×2 (09:52→20:06)
[2020-10-31] MEDS: PANTOPRAZOLE 40 MG (PROTONIX) TAB PO SCH (09:52)
[2020-10-31] MEDS: LORATADINE (CLARITIN) 10 MG TAB PO SCH (09:52)
[2020-10-31] MEDS: FLUoxetine HCL 20 MG (PROzac) CAP PO SCH (09:52)
[2020-10-31] MEDS: AZITHROMYCIN 250 MG TAB (ZITHROMAX) PO SCH (09:52)
[2020-10-31] MEDS: DIVALPROEX EXT RELEASE 250 MG (DEPAKOTE ER) TAB PO SCH ×2 (09:52→20:06)
[2020-10-31] MEDS: CLOPIDOGREL 75 MG (PLAVIX) TABLET PO SCH (09:52)
[2020-10-31] MEDS: ANIDULAFUNGIN INJECTION 100 MG in NS (IVPB) 100 ML IV SCH (09:53)
--- NOTE | 2020-10-31 11:08 | Progress Note - Hospitalist ---
YOEL MCKEON [facility] 10/31/20 1108: Subjective HPI/CC On Admission Date Seen by Provider: Oct 31, 2020 Time Seen by Provider: 09:05 Subjective/Events-last exam Odilon was moved to the ICU today due to increase need of oxygen on vapotherm. FiO2 of 80. He sitting up in bed. Appears fatigued. Decreased appetite. Last BM was 10/29. Urinating without issue. Denies Chest pain, Abdominal pain, N/V or feeling of F/C at this time. + for shortness of air. He is being seen by PT. Review of Systems General: No Chills Pulmonary: Dyspnea; No Cough, No Pleuritic Chest Pain Cardiovascular: No: Chest Pain, Palpitations Gastrointestinal: No: Nausea, Vomiting, Abdominal Pain Genitourinary: No Dysuria, No Frequency Neurological: Weakness Focused Exam Time of Focused Exam: 11:00 Objective Exam Vital Signs Vital Signs Date Time Temp Pulse Resp B/P (MAP) Pulse Ox O2 Delivery O2 Flow Rate FiO2 11/01/20 12:00 65 17 117/69 (85) 98 High Flow N/C 9.00 11/01/20 10:15 80 11/01/20 07:26 36.0 Capillary Refill : Less Than 3 Seconds General Appearance: Mild Distress Respiratory: Chest Non Tender, Accessory Muscle Use (minimal, WOB is increased compared to yesterday.), Crackles, Wheezing Cardiovascular: Regular Rate, Rhythm, No Edema, Normal Peripheral Pulses Gastrointestinal: Normal Bowel Sounds, Non Tender, Soft Extremity: No Calf Tenderness Neurologic/Psychiatric: Alert, Oriented x3 Skin: Normal Color, Warm/Dry Lymphatic: No Adenopathy Results/Procedures Lab Laboratory Tests 11/01/20 05:48 Patient resulted labs reviewed. Assessment/Plan Assessment and Plan Assess & Plan/Chief Complaint Assessment: 1. Acute respiratory/hypoxic failure - appreciate pulmonary recs - respiratory therapy - Possible bronchoscopy 2. BL interstitial PNA - continue abx - appreciate pulmonary recs 3. Marjauna use - smoking cessation 4. Anemia - monitor 5. Hyponatremia - monitor 6. Hx of PE and CVA - yolie filter Plan 10/29 - continue abx and respiratory therapy - ordered PT - Ordered Miralax and Senna - appreciate pulmonary recs - will monitor labs Plan 10/30 - continue abx and respiratory therapy - Continue PT - Fluid restriction for hyponatremia - TSH ordered - appreciate pulmonary recs, note reviewed - will monitor labs Plan 10/31 - Transferred to ICU - hyponatremia improving 126-->128 - Continue PT - TSH normal - appreciate pulmonary recs - will monitor labs PARIS SPRINGER DO 11/02/20 0520: Subjective Subjective/Events-last exam Patient in critical status and could worsen and require intubation Monitor closely Review of Systems Pulmonary: Dyspnea Objective Exam General Appearance: Anxious, Mild Distress Respiratory: Accessory Muscle Use (minimal, WOB is increased compared to yesterday.), Crackles, Wheezing Cardiovascular: Regular Rate, Rhythm Neurologic/Psychiatric: Alert, Oriented x3 Assessment/Plan Assessment and Plan Assess & Plan/Chief Complaint Monitor in ICU May need intubation Supervisory-Addendum Brief Verification & Attestation Participated in pt care: history, MDM, physical Personally performed: exam, history, MDM, supervision of care Care discussed with: Medical Student Procedures: n/a Results interpretation: Verified all documentation Verification and Attestation of Medical Student E/M Service A medical student performed and documented this service in my presence. I reviewed and verified all information documented by the medical student and made modifications to such information, when appropriate. I personally performed the physical exam and medical decision making. Paris Springer, Nov 02, 2020,05:19 YOEL MCKEON [facility] Oct 31, 2020 11:08 PARIS SPRINGER DO Nov 02, 2020 05:20
[2020-10-31] MEDS: ENOXAPARIN 40 MG/0.4 ML (LOVENOX) SYR SQ SCH (14:55)
[2020-10-31] MEDS: traZODone 50 MG (DESYREL) TAB PO SCH (20:06)
[2020-10-31] MEDS: ASPIRIN 81 MG CHEW (CHILDREN'S ASA) PO SCH (20:07)
[2020-10-31] MEDS: MIRTAZAPINE 15 MG (REMERON) TAB PO SCH (20:16)
[2020-10-31] MEDS: ROSUVASTATIN 5 MG (CRESTOR) TABLET PO SCH (20:23)
[2020-11-01] VITALS (27 sets, daily range): BP systolic 72–126; BP diastolic 50–89
[2020-11-01] MEDS: RT-ALBUTEROL SULF 2.5 MG/3 ML PRE-MIX VIAL INH SCH ×6 (02:25→21:56)
[2020-11-01] MEDS ORDERED: CEFEPIME 1 GM/10 ML (MAXIPIME) VIAL ONE ×4 (02:35→20:43)
[2020-11-01] MEDS ORDERED: WATER (STERILE) FOR INJECTION 10 ML ONE ×3 (02:35→15:02)
[2020-11-01] MEDS: CEFEPIME 1,000 MG/SWFI 10 ML IV PUSH IV SCH ×8 (02:45→20:55)
--- NOTE | 2020-11-01 05:36 | Pulmonary Progress Note ---
Subjective Time Seen by a Provider: 05:29 Subjective/Events-last exam Pt is currently on BiPAP Sepsis Event Evaluation Height, Weight, BMI Height: 6'3.00" Weight: 200lbs. 6.4oz. 90.139114oh; 27.70 BMI Method:Estimated Focused Exam Time of Focused Exam: 11:00 Exam Exam Vital Signs Date Time Temp Pulse Resp B/P (MAP) Pulse Ox O2 Delivery O2 Flow Rate FiO2 11/01/20 04:00 63 20 93/64 (74) 93 Vapotherm 25.00 40.00 11/01/20 03:00 66 15 99/61 (74) 93 Vapotherm 25.00 40.00 11/01/20 02:32 Vapotherm 25.00 40.00 11/01/20 02:25 66 17 96 50.00 11/01/20 02:00 64 14 90/65 (73) 95 Vapotherm 25.00 80.00 11/01/20 01:00 65 11/01/20 01:00 64 15 72/50 (57) 94 Vapotherm 25.00 80.00 11/01/20 00:00 66 16 96/66 (76) 94 Vapotherm 25.00 80.00 10/31/20 23:00 70 18 105/69 (81) 94 Vapotherm 25.00 80.00 10/31/20 22:00 73 21 115/70 (85) 92 Vapotherm 25.00 80.00 10/31/20 21:39 96 Vapotherm 25.00 80 10/31/20 21:00 72 19 111/78 (89) 95 Vapotherm 25.00 80.00 10/31/20 20:00 68 13 115/74 (88) 96 Vapotherm 25.00 80.00 10/31/20 20:00 94 Vapotherm 25.00 80 10/31/20 19:00 69 20 122/81 (95) 96 Vapotherm 25.00 80.00 10/31/20 19:00 67 10/31/20 18:08 95 Vapotherm 25.00 80 10/31/20 18:00 65 17 117/77 (90) 99 Vapotherm 25.00 80.00 10/31/20 17:00 58 18 102/68 (79) 98 Vapotherm 25.00 80.00 10/31/20 16:00 65 18 101/64 (76) 98 Vapotherm 25.00 80.00 10/31/20 15:11 36.4 10/31/20 15:04 71 22 98 80.00 10/31/20 15:00 73 21 112/76 (88) 97 Vapotherm 25.00 80.00 10/31/20 14:52 96 Vapotherm 25.00 80 10/31/20 14:00 74 25 111/77 (88) 96 Vapotherm 25.00 80.00 10/31/20 13:00 73 32 120/78 (92) 97 Vapotherm 25.00 80.00 10/31/20 12:26 72 10/31/20 12:00 71 28 111/76 (88) 97 Vapotherm 25.00 80.00 10/31/20 11:00 71 24 117/79 (92) 96 Vapotherm 25.00 80.00 10/31/20 10:00 80 30 129/80 (96) 95 Vapotherm 25.00 80.00 10/31/20 09:31 94 Vapotherm 25.00 80 10/31/20 09:00 76 31 113/72 (86) 94 Vapotherm 25.00 80.00 10/31/20 08:00 91 Vapotherm 25.00 80 10/31/20 08:00 78 35 107/79 (88) 90 Vapotherm 25.00 80.00 10/31/20 07:35 37.0 79 30 120/89 (99) 91 Vapotherm 25.00 80.00 10/31/20 06:54 75 10/31/20 06:26 96 Vapotherm 25.00 80 I & O 11/01/20 07:00 Intake Total 530 ml Output Total 2025 ml Balance -1495 ml Height & Weight Height: 6'3.00" Weight: 200lbs. 6.4oz. 90.950168aw; 27.70 BMI Method:Estimated General Appearance: Chronically ill HEENT: Normal ENT Inspection Neck: Limited Range of Motion Respiratory: Crackles, Decreased Breath Sounds Cardiovascular: Regular Rate, Rhythm, No Gallop Capillary Refill: Less Than 3 Seconds Peripheral Pulses: 2+ Dorsalis Pedis (R), 2+ Left Dors-Pedis (L), 2+ Radial Pulses (R), 2+ Radial Pulses (L) Gastrointestinal: normal bowel sounds, non tender, soft Extremity: No Pedal Edema Neurologic/Psychiatric: Alert Skin: Normal Color, Warm/Dry Lymphatic: No Adenopathy Results Lab Laboratory Tests 10/31/20 05:54 Assessment/Plan Assessment/Plan Acute respiratory/hypoxic failure -Currently on BiPAP -LABS and CXR pending Bilateral interstitial PNA - Probably post COVID syndrome -Continue Cefepime azithromycin and Eraxis -Hold off on bronchoscopy secondary to oxygen requirments - Solumedrol 40IV Q 16 -James cultures negative thus far --Echo shows normal EF -Influenza is negative Legionella ag is negative -Check Viral respiratory panel -- pending Marijuana use -UDS is positive Hx of asbestos exposure -CT scan reviewed -- No findings consistent with Mesothelioma -No pleural or pulmonary calcifications -CT findings are more consistent with viral/atypical PNA, or acute inflammatory process Anemia -Monitor Hyponatremia -Monitor HX of PE -Pt has Vignesh filter Hx of CVA MADAN KHAN DO Nov 01, 2020 05:36
[2020-11-01 05:56] LABS: BASOPHILS % (AUTO) 0 % (0-10); EOSINOPHILS % (AUTO) 0 % (0-10); HEMATOCRIT 30 % (40-54); HEMOGLOBIN 10.1 g/dL (13.3-17.7); LYMPHOCYTES # (AUTO) 1.2 10^3/uL (1.0-4.0); LYMPHOCYTES % (AUTO) 8 % (12-44); MEAN CORPUSCULAR HEMOGLOBIN 28 pg (25-34); MEAN CORPUSCULAR HGB CONC 34 g/dL (32-36); MEAN CORPUSCULAR VOLUME 81 fL (80-99); MEAN PLATELET VOLUME 9.2 fL (9.0-12.2); MONOCYTES # (AUTO) 0.6 10^3/uL (0.0-1.0); MONOCYTES % (AUTO) 4 % (0-12); NEUTROPHILS # (AUTO) 13.1 10^3/uL (1.8-7.8); NEUTROPHILS % (AUTO) 87 % (42-75); PLATELET COUNT 408 10^3/uL (130-400); WHITE BLOOD COUNT 15.1 10^3/uL (4.3-11.0)
[2020-11-01 06:16] LABS: ALANINE AMINOTRANSFERASE 36 U/L (0-55); ALBUMIN 2.9 GM/DL (3.2-4.5); ALKALINE PHOSPHATASE 89 U/L (40-136); BILIRUBIN,TOTAL 0.2 MG/DL (0.1-1.0); BUN/CREATININE RATIO 26; CALCIUM 9.3 MG/DL (8.5-10.1); CARBON DIOXIDE 27 MMOL/L (21-32); CHLORIDE 90 MMOL/L (98-107); GFR ESTIMATED > 60; GLUCOSE 199 MG/DL (70-105); MAGNESIUM 1.9 MG/DL (1.6-2.4); PHOSPHORUS 3.8 MG/DL (2.3-4.7); POTASSIUM 4.1 MMOL/L (3.6-5.0); SODIUM 129 MMOL/L (135-145); TOTAL PROTEIN 6.2 GM/DL (6.4-8.2)
[2020-11-01 06:18] LABS: LYMPHOCYTES % (MANUAL) 9 %; MONOCYTES % (MANUAL) 2 %; NEUTROPHILS % (MANUAL) 89 %; POIKILOCYTOSIS SLIGHT
[2020-11-01] MEDS ORDERED: LACTATED RINGERS 1,000 ML IV ONE (06:22)
[2020-11-01] MEDS: methylPREDNISolone 40 MG/ML (Solu-MEDROL) VIAL IV SCH ×3 (06:25→17:57)
[2020-11-01] MEDS: LACTATED RINGERS 1,000 ML IV SCH ×2 (06:53→14:32)
--- NOTE | 2020-11-01 07:40 | Diagnostic Imaging Report ---
EXAMINATION: Chest radiograph, portable AP view. DATE: 11/01/2020 7:09 AM INDICATION: 55-year-old male, tube placement. COMPARISON: October 31, 2020. FINDINGS: Stable overall appearance of the cardiomediastinal silhouette. There is no identified pneumothorax. There is obscuration of visualization of left hemidiaphragm. There is multifocal bilateral alveolar and/or interstitial opacities. IMPRESSION: 1. Grossly unchanged extensive multifocal bilateral lung consolidation. Dictated by: Dictated on workstation # [id number]
[2020-11-01] MEDS: FLUoxetine HCL 20 MG (PROzac) CAP PO SCH (08:50)
[2020-11-01] MEDS: PANTOPRAZOLE 40 MG (PROTONIX) TAB PO SCH (08:50)
[2020-11-01] MEDS: AZITHROMYCIN 250 MG TAB (ZITHROMAX) PO SCH (08:50)
[2020-11-01] MEDS: DIVALPROEX EXT RELEASE 250 MG (DEPAKOTE ER) TAB PO SCH ×2 (08:50→20:56)
[2020-11-01] MEDS: CLOPIDOGREL 75 MG (PLAVIX) TABLET PO SCH (08:50)
[2020-11-01] MEDS: SOTALOL 80 MG (BETAPACE) TAB PO SCH ×2 (08:50→20:55)
[2020-11-01] MEDS: LORATADINE (CLARITIN) 10 MG TAB PO SCH (08:50)
[2020-11-01] MEDS: ANIDULAFUNGIN INJECTION 100 MG in NS (IVPB) 100 ML IV SCH (08:51)
--- NOTE | 2020-11-01 09:41 | Progress Note - Hospitalist ---
YOEL MCKEON [facility] 11/01/20 0941: Subjective HPI/CC On Admission Date Seen by Provider: Nov 01, 2020 Time Seen by Provider: 09:25 Subjective/Events-last exam Patient was sitting up in bed with at bed side. Appears to be breathing better. No longer using accessory muscles and can complete full sentences without running out of breath. He wore BiPAP last night. He is currently on 9- 10L of HF. Spoke to nurse, she stated they were worried about urine output so a bolus of fluids was ordered. Overall he states he is feeling better. He denies pain at this time. Denies the following: N/V, F/C, Chest pain, abdominal pain, dysuria or increased frequency at this time. Review of Systems General: No Chills Pulmonary: No Cough, No Pleuritic Chest Pain Cardiovascular: No: Chest Pain, Palpitations Gastrointestinal: No: Nausea, Vomiting, Abdominal Pain Genitourinary: No Dysuria, No Frequency Focused Exam Time of Focused Exam: 11:00 Objective Exam Vital Signs Vital Signs Date Time Temp Pulse Resp B/P (MAP) Pulse Ox O2 Delivery O2 Flow Rate FiO2 11/01/20 13:08 68 11/01/20 12:00 17 117/69 (85) 98 High Flow N/C 9.00 11/01/20 10:15 80 11/01/20 07:26 36.0 Capillary Refill : Less Than 3 Seconds General Appearance: No Apparent Distress, Chronically ill Neck: Full Range of Motion, Non Tender Respiratory: Chest Non Tender, No Accessory Muscle Use, Other (lungs sounds improved. Minimal wheezing ) Cardiovascular: Regular Rate, Rhythm, Normal Peripheral Pulses Gastrointestinal: Non Tender, Soft Extremity: Normal Capillary Refill, No Calf Tenderness Neurologic/Psychiatric: Alert, Oriented x3 Skin: Normal Color, Warm/Dry Lymphatic: No Adenopathy Results/Procedures Lab Laboratory Tests 11/01/20 05:48 Patient resulted labs reviewed. Assessment/Plan Assessment and Plan Assess & Plan/Chief Complaint Assessment: 1. Acute respiratory/hypoxic failure - appreciate pulmonary recs - respiratory therapy - Possible bronchoscopy 2. BL interstitial PNA - continue abx - appreciate pulmonary recs 3. Marjauna use - smoking cessation 4. Anemia - monitor 5. Hyponatremia - monitor 6. Hx of PE and CVA - yolie filter Plan 10/29 - continue abx and respiratory therapy - ordered PT - Ordered Miralax and Senna - appreciate pulmonary recs - will monitor labs Plan 10/30 - continue abx and respiratory therapy - Continue PT - Fluid restriction for hyponatremia - TSH ordered - appreciate pulmonary recs, note reviewed - will monitor labs Plan 10/31 - Transferred to ICU - hyponatremia improving 126-->128 - Continue PT - TSH normal - appreciate pulmonary recs - will monitor labs Plan 11/01 - Hyoponatremia improved 129 (128,126) - HF oxygen 9-10L with Bipap at night, being managed by Pulmonary - continue PT - appreciate pulmonary recs - encourage nutritional intake - monitor labs -monitor for BM, last one 10/29 - consider moving to step down when appropriate. PARIS SPRINGER DO 11/02/20 0522: Subjective Subjective/Events-last exam Much improved status at bedside Improved dyspnea PT OT ordered Objective Exam General Appearance: No Apparent Distress, WD/WN, Chronically ill Respiratory: No Accessory Muscle Use, No Respiratory Distress, Decreased Breath Sounds Cardiovascular: Regular Rate, Rhythm Assessment/Plan Assessment and Plan Assess & Plan/Chief Complaint Improved status ICU maintained HLIVF Fluid PO restriction Supervisory-Addendum Brief Verification & Attestation Participated in pt care: history, MDM, physical Personally performed: exam, history, MDM, supervision of care Care discussed with: Medical Student Procedures: n/a Results interpretation: Verified all documentation Verification and Attestation of Medical Student E/M Service A medical student performed and documented this service in my presence. I reviewed and verified all information documented by the medical student and made modifications to such information, when appropriate. I personally performed the physical exam and medical decision making. Paris Springer, Nov 02, 2020,05:21 YOEL MCKEON [facility] Nov 01, 2020 09:41 PARIS SPRINGER DO Nov 02, 2020 05:22
--- NOTE | 2020-11-01 10:22 | Occupational Therapy Eval ---
OT Evaluation-General/PLF Medical Diagnosis Admission Date Oct 26, 2020 at 09:40 Medical Diagnosis: PNA Onset Date: Oct 26, 2020 Therapy Diagnosis Therapy Diagnosis: Decreased ADL status Height/Weight Height (Feet): 6 Height (Inches): 3.00 Weight (Pounds): 200 Weight (Ounces): 6.4 Precautions Precautions/Isolations: Fall Prevention, Standard Precautions Weight Bear Status Weight Bearing Restriction: Full Weight Bearing Referral Physician: Gian Referral Reason: Activity Tolerance, Self Care, Evaluation/Treatment, Strengthening/ROM Medical History Pertinent Medical History: CVA, GERD, HTN Additional Medical History 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 Current History Pt admits 3/ wit respiratory sx and increased SOB. PNA. Pt transfers from 4th to ICU 10/31. Pt on vapotherm, BiPAP during night, then 9-10 L HF during tx. Reviewed History: Yes Social History Home: Single Level Current Living Status: Spouse Entry Into Home: Stairs With Railing Steps Into Home: 5 Steps Inside Home: 0 ADL-Prior Level of Function SCALE: Activities may be completed with or without assistive devices. 8-Xfspdelbpj-vpsfced completes the activity by him/herself with no assistance from a helper. 5-Set-up or Clean-up Assistance-helper sets up or cleans up; patient completes activity. [place] assists only prior to or following the activity. 4-Supervision or Touching Assistance-helper provides verbal cues and/or touching/steadying and/or contact guard assistance as patient completes activity. Assistance may be provided throughout the activity or intermittently. 3-Partial/Moderate Assistance-helper does LESS THAN HALF the effort. [place] lifts, holds or supports trunk or limbs, but provides less than half the effort. 2-Substantial/Maximal Assistance-helper does MORE THAN HALF the effort. [place] lifts or holds trunk or limbs and provides more than half the effort. 0-Fjykfzvrv-hvkgmo does ALL the effort. Patient does none of the effort to complete the activity. Or, the assistance of 2 or more helpers is required for the patient to complete the activity. If activity was not attempted, code reason: 7-Patient Refused. 9-Not Applicable-not attempted and the patient did not perform the activity before the current illness, exacerbation or injury. 10-Not Attempted due to Environmental Limitations-(lack of equipment, weather restraints, etc.). 88-Not Attempted due to Medical Conditions or Safety Concerns. ADL PLOF Comments Pt was IND without use of AD. Does not drive/ cook, assists with these tasks. Self Care: Independent Functional Cognition: Independent DME/Equipment: Bath Chair, Grab Bars, Shower Occupation: disabled Drive Self: No OT Current Status Subjective Pt AxO, sitting upright in recliner. Pt's present. Pt agrees to tx, denies pain. Mental Status/Objective Patient Orientation: Person, Place, Situation, Normal For Age Attachments: IV, Oxygen Current Glasses/Contacts: Yes Hearing Aids: No Dentures/Partials: Yes Hand Dominance: Left Upper Extremity Strength WFL Edema: none ADL-Treatment Eating (QC): 6 (per pt and clinical judgment) Oral Hygiene (QC): 6 (per pt and clinical judgment) Upper Body Dressing (QC): 6 (per pt and clinical judgment) Lower Body Dressing (QC): 6 (per pt and clinical judgment) On/Off Footwear (QC): 6 (Completes with IND.) Toileting Hygiene (QC): 6 (per pt and clinical judgment) Other Treatments Pt introduced to OT/ role of OT. Pt familiar with this OT, as evaluated downstairs and OT services were not required. Pt completes sock doff/ donning, 02 dropping slightly into high 80s, recovers within seconds. Stands for ~2 minutes, 02 maintains in 90s; educated on diaphragmatic breathing techniques and pt return demonstrates. Pt sits, converses with and 02 dips to high 70s. Pt educated on "dinging" and to be aware of 02- completes nostril breaths and diaphragmatic breathing iwth slight cough. Pt states at PLOF with ADLs, main complaint is decreased pulmonary endurance affecting ambulation. Pt left in recliner with all needs met, call light in reach. No OT services needed, pt at PLOF with ADLs. Education OT Patient Education: Correct positioning, Progress toward Goal/Update tx plan, Purpose of tx/functional activities, Safety issues Teaching Recipient: Patient Teaching Methods: Demonstration, Discussion Response to Teaching: Verbalize Understanding, Return Demonstration OT Bark Press Operator Goals Bark Press Operator Goals 1=Demonstrate adherence to instructed precautions during ADL tasks. 2=Patient will verbalize/demonstrate understanding of assistive devices/modifications for ADL. 3=Patient will improve strength/tolerance for activity to enable patient to perform ADL's. OT Education/Plan Problem List/Assessment Assessment: No Skilled OT Needs ID'd Discharge Recommendations Plan/Recommendations: Discharge/Goals Met Therapy Discharge Recommendati: Home & Family Treatment Plan/Plan of Care Treatment,Training & Education: Yes Patient would benefit from OT for education, treatment and training to promote independence in ADL's, mobility, safety and/or upper extremity function for ADL's. Plan of Care: OTHER (eval and d/c. ) Treatment Duration: Nov 01, 2020 Frequency: 1 time per week (eval and dc) Time/GCodes Start Time: 10:01 Stop Time: 10:11 Total Time Billed (hr/min): 10 Billed Treatment Time 1, EVM (10) No OT services needed, pt at PLOF with ADLs. JOHN MIRELES OTR Nov 01, 2020 10:22
--- NOTE | 2020-11-01 10:38 | Physical Therapy Evaluation ---
PT Evaluation-General Medical Diagnosis Admission Date Oct 26, 2020 at 09:40 Medical Diagnosis: PNA Onset Date: Oct 26, 2020 Therapy Diagnosis Therapy Diagnosis: decreased pulmonary function Height/Weight Height (Feet): 6 Height (Inches): 3.00 Weight (Pounds): 200 Weight (Ounces): 6.4 Precautions Precautions/Isolations: Fall Prevention, Standard Precautions Referral Physician: Conrad Reason for Referral: Evaluation/Treatment Medical History Pertinent Medical History: CVA, GERD, HTN Reviewed History: Yes Social History Home: Single Level Current Living Status: Spouse Entry Into Home: Stairs With Railing PT Steps Into Home: 5 PT Steps Inside Home: 0 Prior Prior Level of Function SCALE: Activities may be completed with or without assistive devices. 7-Yrtlzsmwfm-tzkcaft completes the activity by him/herself with no assistance from a helper. 5-Set-up or Clean-up Assistance-helper sets up or cleans up; patient completes activity. [place] assists only prior to or following the activity. 4-Supervision or Touching Assistance-helper provides verbal cues and/or touching/steadying and/or contact guard assistance as patient completes activity. Assistance may be provided throughout the activity or intermittently. 3-Partial/Moderate Assistance-helper does LESS THAN HALF the effort. [place] lifts, holds or supports trunk or limbs, but provides less than half the effort. 2-Substantial/Maximal Assistance-helper does MORE THAN HALF the effort. [place] lifts or holds trunk or limbs and provides more than half the effort. 0-Hytszgoju-lfbrwg does ALL the effort. Patient does none of the effort to complete the activity. Or, the assistance of 2 or more helpers is required for the patient to complete the activity. If activity was not attempted, code reason: 7-Patient Refused. 9-Not Applicable-not attempted and the patient did not perform the activity before the current illness, exacerbation or injury. 10-Not Attempted due to Environmental Limitations-(lack of equipment, weather restraints, etc.). 88-Not Attempted due to Medical Conditions or Safety Concerns. Bed Mobility: 6 Transfers (B,C,W/C): 6 Gait: 6 Stairs: 6 Indoor Mobility (Ambulation): Independent Stairs: Independent Prior Devices Use: None PT Evaluation-Current Subjective Pt presents sitting up in bed with present in room, he reports he has no pain at this time. Pt/Family Goals Following session, pt up in chair with present in room. Call light and tray within reach, all needs met at this time, Objective Patient Orientation: Person, Place Attachments: Oxygen, IV ROM/Strength ROM Lower Extremities WFL Strength Lower Extremities Grossly 3/5 with functional mobility Integumentary/Posture Integumentary refer to nursing notes Bowel Incontinence: No Bladder Incontinence: No Neuromuscular (Tone, Coordination, Reflexes) grossly intact Sensory Vision: Wears Glasses Hearing: Functional Hand Dominance: Left Transfers Roll Left to Right (QC): 6 Lying to Sitting/Side of Bed(Q: 6 Sit to Stand (QC): 6 Chair/Iyg-rz-Czxdg Xfer(QC): 6 Gait Does the Patient Walk?: Yes Mode of Locomotion: Walk Anticipated Mode of Locomotion: Walk Walk 10 feet (QC): 6 Gait Assistive Device: None Comments/Gait Description Distance limited due to lines and O2 tubing in room. Able to walk fwd/bkwd 10' x 5 with SBA for safety Balance Sitting Static: Fair Sitting Dynamic: Fair Standing Static: Fair Standing Dynamic: Fair Assessment/Needs Pt most limited by pulmonary function, he is independent with mobility; however, his O2 drops to 85% with activity. Pt requires frequent cueing for deep diaphragmatic breathing to increase O2 sats. Rehab Potential: Good PT Short Term Goals Short Term Goals Time Frame: Nov 09, 2020 Roll Left & Right: 6 Sit to lyin Lying to sitting on side of be: 6 Sit to stand: 6 Chair/qqm-wi-jzyzz transfer: 6 Toilet transfer: 6 Walk 10 feet: 6 Walk 50 feet with two turns: 6 Walk 150 feet: 6 PT Plan Problem List Problem List: Activity Tolerance, Functional Strength, Safety, Balance, Gait, Transfer, Bed Mobility, ROM Treatment/Plan Treatment Plan: Continue Plan of Care Treatment Plan: Education, Functional Activity Erin, Therapeutic Exercise Treatment Duration: Nov 09, 2020 Frequency: 6 times per week Estimated Hrs Per Day: .25 hour per day Patient and/or Family Agrees t: Yes Time/GCodes Time In: 930 Time Out: 950 Total Billed Treatment Time: 20 Total Billed Treatment [facility] MANNIE JOSHUA PT Nov 01, 2020 10:38
[2020-11-01] MEDS: ENOXAPARIN 40 MG/0.4 ML (LOVENOX) SYR SQ SCH (13:12)
--- NOTE | 2020-11-01 15:00 | Physician Query Clarification ---
"Physician Query-General Query to Physician: The medical record reflects the following clinical scenario: The patient, in the setting of Failed outpatient treatment of pneumonia, P 78,RR 29, BP 128/56, SpO2 82% on 2L, T 36.4, WBC 19.0, With ER Treatment: LR 2L, Cefepime, Vancomycin Question: Do you agree with the impression of Sepsis per Dr Trever Martines and Dr. Fiordaliza Marlow? If you agree, please document in Progress Notes or Discharge Summary. 1. Yes; will document Sepsis due to Bilateral interstitial pneumonia present on admission, resolved in the Progress Notes 2. No; will continue to document Bilateral interstitial Pneumonia in the Progress Notes 3. Other; will document explanation of clinical findings 4. Clinically undetermined; no explanation for clinical findings Please remember a lack of response to the above will prompt a phone page by CDI/coding staff. In responding to this query, please exercise your independent professional judgment. The purpose of this communication is to more accurately reflect the complexity of your patients condition. The fact that a question is asked does not imply that any particular answer is desired or expected. Thank you for timely response to this clarification. Bela Marshall, MSN, RN RN Specialist-Clinical Doc Improvement CD -Health Info Mgmt Operations [address] [facility] t: [phone] | f: [phone] If you are unable to reach me at my extension, I may be working from home. Please contact me at [phone] PHYSICIAN RESPONSE: Based on the clinical findings in the record, please respond to the query above on this document as an addendum. Physician Response: Physician Response 1 If you have questions please contact: Disability Specialist: Ext: Thank you for your time and cooperation. Clinical Fire Marshal/Disability Specialist This is a permanent part of the medical recor d BELA MARSHALL Nov 01, 2020 15:00 HERO RODRIGUES DO Nov 01, 2020 20:31"
[2020-11-01] MEDS: ASPIRIN 81 MG CHEW (CHILDREN'S ASA) PO SCH (20:55)
[2020-11-01] MEDS: ROSUVASTATIN 5 MG (CRESTOR) TABLET PO SCH (20:55)
[2020-11-01] MEDS: MIRTAZAPINE 15 MG (REMERON) TAB PO SCH (20:56)
[2020-11-01] MEDS: traZODone 50 MG (DESYREL) TAB PO SCH (21:03)
[2020-11-01] MEDS: ALPRAZolam 0.5 MG (XANAX) TAB PO PRN (21:03)
[2020-11-02] VITALS (22 sets, daily range): BP systolic 86–128; BP diastolic 50–99
[2020-11-02] MEDS: methylPREDNISolone 40 MG/ML (Solu-MEDROL) VIAL IV SCH ×3 (00:37→20:19)
[2020-11-02] MEDS: RT-ALBUTEROL SULF 2.5 MG/3 ML PRE-MIX VIAL INH SCH ×6 (01:54→22:18)
[2020-11-02] MEDS ORDERED: CEFEPIME 1 GM/10 ML (MAXIPIME) VIAL ONE (01:57)
[2020-11-02 03:06] LABS: BASOPHILS % (AUTO) 0 % (0-10); EOSINOPHILS % (AUTO) 0 % (0-10); HEMATOCRIT 29 % (40-54); HEMOGLOBIN 9.6 g/dL (13.3-17.7); LYMPHOCYTES # (AUTO) 1.8 10^3/uL (1.0-4.0); LYMPHOCYTES % (AUTO) 7 % (12-44); MEAN CORPUSCULAR HEMOGLOBIN 27 pg (25-34); MEAN CORPUSCULAR HGB CONC 33 g/dL (32-36); MEAN CORPUSCULAR VOLUME 83 fL (80-99); MEAN PLATELET VOLUME 9.5 fL (9.0-12.2); MONOCYTES # (AUTO) 0.8 10^3/uL (0.0-1.0); MONOCYTES % (AUTO) 3 % (0-12); NEUTROPHILS # (AUTO) 22.1 10^3/uL (1.8-7.8); NEUTROPHILS % (AUTO) 89 % (42-75); PLATELET COUNT 513 10^3/uL (130-400); WHITE BLOOD COUNT 24.9 10^3/uL (4.3-11.0)
[2020-11-02 03:19] LABS: CHLORIDE 93 MMOL/L (98-107); POTASSIUM 4.2 MMOL/L (3.6-5.0); SODIUM 131 MMOL/L (135-145)
[2020-11-02 03:20] LABS: CALCIUM 9.1 MG/DL (8.5-10.1)
[2020-11-02 03:21] LABS: GLUCOSE 138 MG/DL (70-105)
[2020-11-02 03:23] LABS: CARBON DIOXIDE 26 MMOL/L (21-32)
[2020-11-02 03:25] LABS: CREATININE SERUM 0.75 MG/DL (0.60-1.30); GFR ESTIMATED > 60; PHOSPHORUS 3.9 MG/DL (2.3-4.7)
[2020-11-02 03:26] LABS: BUN/CREATININE RATIO 32
[2020-11-02] MEDS: CEFEPIME 1,000 MG/SWFI 10 ML IV PUSH IV SCH ×2 (03:36)
--- NOTE | 2020-11-02 05:06 | Pulmonary Progress Note ---
Subjective Time Seen by a Provider: 04:59 Subjective/Events-last exam Pt is still requiring a lot of oxygen. Sepsis Event Evaluation Height, Weight, BMI Height: 6'3.00" Weight: 200lbs. 6.4oz. [id number]; 27.70 BMI Method:Estimated Focused Exam Time of Focused Exam: 11:00 Exam Exam Vital Signs Date Time Temp Pulse Resp B/P (MAP) Pulse Ox O2 Delivery O2 Flow Rate FiO2 11/02/20 03:52 36.6 NIV Bilevel 40.00 11/02/20 02:00 54 12 115/74 (88) 98 NIV Bilevel 40.00 11/02/20 01:55 55 13 95 40.00 11/02/20 01:00 57 13 96/62 (73) 95 NIV Bilevel 40.00 11/02/20 01:00 60 11/02/20 00:29 60 15 97 40.00 11/02/20 00:00 60 14 89/59 (69) 95 NIV Bilevel 40.00 11/01/20 23:00 66 17 102/65 (77) 94 NIV Bilevel 40.00 11/01/20 23:00 36.4 NIV Bilevel 40.00 11/01/20 22:55 68 11/01/20 22:00 71 19 109/82 (91) 97 High Flow N/C 7.00 11/01/20 21:57 92 High Flow N/C 6.00 11/01/20 21:00 73 16 116/81 (93) 93 High Flow N/C 7.00 11/01/20 20:55 73 11/01/20 20:01 36.6 11/01/20 20:00 92 High Flow N/C 6.00 11/01/20 20:00 78 22 126/80 (95) 94 High Flow N/C 7.00 11/01/20 19:00 73 19 122/70 (87) 95 High Flow N/C 7.00 11/01/20 19:00 72 11/01/20 18:28 95 High Flow N/C 7.00 11/01/20 18:00 68 9 112/88 (96) 100 High Flow N/C 7.00 11/01/20 17:00 73 21 107/78 (88) 97 High Flow N/C 7.00 11/01/20 16:00 73 21 108/75 (86) 97 High Flow N/C 7.00 11/01/20 15:00 74 16 120/83 (95) 96 High Flow N/C 7.00 11/01/20 14:45 High Flow N/C 7.00 11/01/20 14:33 96 High Flow N/C 7.00 11/01/20 14:00 68 17 120/71 (87) 98 High Flow N/C 9.00 11/01/20 13:41 36.0 70 97 11/01/20 13:08 68 11/01/20 13:00 67 12 106/84 (91) 96 High Flow N/C 9.00 11/01/20 12:00 65 17 117/69 (85) 98 High Flow N/C 9.00 11/01/20 11:00 66 18 115/77 (90) 98 High Flow N/C 9.00 11/01/20 10:15 98 High Flow N/C 8.00 80 11/01/20 10:00 65 10 122/89 (100) 96 High Flow N/C 9.00 11/01/20 09:00 67 23 122/83 (96) 93 High Flow N/C 9.00 11/01/20 08:00 NIV Bilevel 40 11/01/20 08:00 68 12 122/79 (93) 95 Vapotherm 25.00 40.00 11/01/20 08:00 High Flow N/C 9.00 11/01/20 07:26 36.0 11/01/20 07:26 60 13 94 40.00 11/01/20 07:00 62 12 103/67 (79) 94 Vapotherm 25.00 40.00 11/01/20 07:00 62 11/01/20 06:00 62 12 102/72 (82) 91 Vapotherm 25.00 40.00 11/01/20 05:00 62 16 109/63 (78) 92 Vapotherm 25.00 40.00 I & O 11/02/20 07:00 Intake Total 1097 ml Output Total 1875 ml Balance -778 ml Height & Weight Height: 6'3.00" Weight: 200lbs. 6.4oz. 90.705698yb; 27.70 BMI Method:Estimated General Appearance: No Apparent Distress, Chronically ill HEENT: Normal ENT Inspection Neck: Full Range of Motion, Non Tender Respiratory: Chest Non Tender, No Accessory Muscle Use, Other (lungs sounds i mproved. Minimal wheezing ) Cardiovascular: Regular Rate, Rhythm, Normal Peripheral Pulses Capillary Refill: Less Than 3 Seconds Peripheral Pulses: 2+ Dorsalis Pedis (R), 2+ Left Dors-Pedis (L), 2+ Radial Pulses (R), 2+ Radial Pulses (L) Gastrointestinal: normal bowel sounds, non tender, soft Extremity: Normal Capillary Refill, No Calf Tenderness Neurologic/Psychiatric: Alert, Oriented x3 Skin: Normal Color, Warm/Dry Lymphatic: No Adenopathy Results Lab Laboratory Tests 10/31/20 05:54 11/01/20 05:48 11/02/20 02:30 Assessment/Plan Assessment/Plan Acute respiratory/hypoxic failure -Currently on BiPAP -LABS and CXR pending Bilateral interstitial PNA - Probably post COVID syndrome -Continue Cefepime azithromycin and Eraxis -Hold off on bronchoscopy secondary to oxygen requirments - Solumedrol 40IV Q 6 -- Decrease To BID -James cultures negative thus far --Echo shows normal EF -Influenza is negative Legionella ag is negative -Check Viral respiratory panel -- pending Worsening leukocytosis - probably secondary to steroids -Decrease Solumedrol to Q12 -Monitor last PCT was negative Marijuana use -UDS is positive Hx of asbestos exposure -CT scan reviewed -- No findings consistent with Mesothelioma -No pleural or pulmonary calcifications -CT findings are more consistent with viral/atypical PNA, or acute inflammatory process Anemia -Monitor Hyponatremia -Monitor HX of PE -Pt has [place] filter Hx of CVA MADAN KHAN DO Nov 02, 2020 05:06
--- NOTE | 2020-11-02 07:19 | Diagnostic Imaging Report ---
INDICATION: Pneumonia. Comparison made with prior examination of 11/01/2020. FINDINGS: Heart size is normal. There is diffuse bilateral airspace disease. Some underlying venous congestion cannot be excluded. No pleural effusion or pneumothorax. Mediastinum unremarkable. IMPRESSION: Persistent diffuse bilateral airspace disease, likely pneumonia. Some underlying central pulmonary venous congestion cannot be excluded. Dictated by: Dictated on workstation # [id number]
[2020-11-02] MEDS: FLUoxetine HCL 20 MG (PROzac) CAP PO SCH (08:21)
[2020-11-02] MEDS: CLOPIDOGREL 75 MG (PLAVIX) TABLET PO SCH (08:21)
[2020-11-02] MEDS: DIVALPROEX EXT RELEASE 250 MG (DEPAKOTE ER) TAB PO SCH ×2 (08:21→20:20)
[2020-11-02] MEDS: AZITHROMYCIN 250 MG TAB (ZITHROMAX) PO SCH (08:21)
[2020-11-02] MEDS: LORATADINE (CLARITIN) 10 MG TAB PO SCH (08:22)
[2020-11-02] MEDS: SOTALOL 80 MG (BETAPACE) TAB PO SCH ×2 (08:22→20:21)
[2020-11-02] MEDS: ANIDULAFUNGIN INJECTION 100 MG in NS (IVPB) 100 ML IV SCH (08:22)
[2020-11-02] MEDS: PANTOPRAZOLE 40 MG (PROTONIX) TAB PO SCH (08:22)
[2020-11-02] MEDS ORDERED: CEFEPIME 1,000 MG/SWFI 10 ML IV PUSH IV SCH ×2 (09:00)
--- NOTE | 2020-11-02 10:48 | Physical Therapy Daily Note ---
PT Daily Note-Current Subjective Agrees to PT. Reports he is cold. Mental Status Patient Orientation: Person, Place, Time, Situation Transfers SCALE: Activities may be completed with or without assistive devices. 3-Lawlocaarh-ofpxygt completes the activity by him/herself with no assistance from a helper. 5-Set-up or Clean-up Assistance-helper sets up or cleans up; patient completes activity. [place] assists only prior to or following the activity. 4-Supervision or Touching Assistance-helper provides verbal cues and/or touching/steadying and/or contact guard assistance as patient completes activity. Assistance may be provided throughout the activity or intermittently. 3-Partial/Moderate Assistance-helper does LESS THAN HALF the effort. [place] lifts, holds or supports trunk or limbs, but provides less than half the effort. 2-Substantial/Maximal Assistance-helper does MORE THAN HALF the effort. [place] lifts or holds trunk or limbs and provides more than half the effort. 0-Smmlsimon-xipuhx does ALL the effort. Patient does none of the effort to complete the activity. Or, the assistance of 2 or more helpers is required for the patient to complete the activity. If activity was not attempted, code reason: 7-Patient Refused. 9-Not Applicable-not attempted and the patient did not perform the activity before the current illness, exacerbation or injury. 10-Not Attempted due to Environmental Limitations-(lack of equipment, weather restraints, etc.). 88-Not Attempted due to Medical Conditions or Safety Concerns. Roll Left & Right (QC): 6 Sit to Lying (QC): 6 Lying to Sitting/Side of Bed(Q: 6 Sit to Stand (QC): 4 Chair/Xew-fh-Dytrq Xfer(QC): 4 Exercises Seated Therapy Exercises: Ankle pumps, Long arc quads, Hip flexion Seated Reps: 15 (to promote LE strength for functional transfers and gait progression) Standing: Marching Standing Reps: 15 (3 sets with TRAFFIC SUPERVISOR) Treatments Sit to stand transfers; seated and standing ther ex, up to chair post visit with needs met. Assessment Current Status: Good Progress Tolerated well. Functional strength is progressing. PT Short Term Goals Short Term Goals Time Frame: Nov 09, 2020 Roll Left & Right: 6 Sit to lyin Lying to sitting on side of be: 6 Sit to stand: 6 Chair/wkf-di-xwhth transfer: 6 Toilet transfer: 6 Walk 10 feet: 6 Walk 50 feet with two turns: 6 Walk 150 feet: 6 PT Plan Problem List Problem List: Activity Tolerance, Functional Strength, Safety Treatment/Plan Treatment Plan: Continue Plan of Care Treatment Plan: Education, Functional Activity Erin, Therapeutic Exercise Treatment Duration: Nov 09, 2020 Frequency: 6 times per week Estimated Hrs Per Day: .25 hour per day Patient and/or Family Agrees t: Yes Safety Risks/Education Patient Education: Safety Issues Teaching Recipient: Patient Teaching Methods: Discussion Response to Teaching: Reinforcement Needed Discharge Recommendations Therapy Discharge Recommendati: Post Acute PT Time/GCodes Time In: 930 Time Out: 953 Total Billed Treatment Time: 23 Total Billed Treatment visit FA 10 EX 13 GERMANIA ALCAZAR PT Nov 02, 2020 10:48
[2020-11-02 12:34] LABS: RSV PCR TEST Not Detected (Not Detected)
--- NOTE | 2020-11-02 13:18 | Progress Note - Hospitalist ---
[facility] 11/02/20 1318: Subjective HPI/CC On Admission Date Seen by Provider: Nov 02, 2020 Time Seen by Provider: 10:55 Subjective/Events-last exam Odilon is sitting up in the bed watching TV. Currently on 5-6L HF. Breathing much better. No accessory muscle use. He is having better nutritional intake. BM today. Urinating without issue. Working with PT. Continues to wear Bipap at n ight. Overall he seems to be improving and he says he is breathing better. Review of Systems General: No Chills Pulmonary: No Cough, No Pleuritic Chest Pain Cardiovascular: No: Chest Pain, Palpitations Gastrointestinal: No: Nausea, Vomiting, Abdominal Pain Genitourinary: No Dysuria, No Frequency Focused Exam Time of Focused Exam: 11:00 Objective Exam Vital Signs Vital Signs Date Time Temp Pulse Resp B/P (MAP) Pulse Ox O2 Delivery O2 Flow Rate FiO2 11/02/20 12:38 68 11/02/20 12:00 35 118/68 (85) 95 NIV Bilevel 40.00 11/02/20 11:10 36.3 11/01/20 10:15 80 Capillary Refill : Less Than 3 Seconds General Appearance: No Apparent Distress, Chronically ill Neck: Non Tender, Supple Respiratory: Chest Non Tender, No Accessory Muscle Use, No Respiratory Distress, Wheezing Cardiovascular: No Edema, Normal Peripheral Pulses Gastrointestinal: Normal Bowel Sounds, Non Tender, Soft Extremity: No Calf Tenderness, No Pedal Edema Neurologic/Psychiatric: Alert, Oriented x3 Skin: Normal Color, Warm/Dry Lymphatic: No Adenopathy Results/Procedures Lab Laboratory Tests 11/02/20 02:30 Patient resulted labs reviewed. Assessment/Plan Assessment and Plan Assess & Plan/Chief Complaint Assessment: 1. Acute respiratory/hypoxic failure - appreciate pulmonary recs - respiratory therapy - Possible bronchoscopy 2. BL interstitial PNA - continue abx - appreciate pulmonary recs 3. [place] use - smoking cessation 4. Anemia - monitor 5. Hyponatremia - monitor 6. Hx of PE and CVA - yolie filter Plan 10/29 - continue abx and respiratory therapy - ordered PT - Ordered Miralax and Senna - appreciate pulmonary recs - will monitor labs Plan 10/30 - continue abx and respiratory therapy - Continue PT - Fluid restriction for hyponatremia - TSH ordered - appreciate pulmonary recs, note reviewed - will monitor labs Plan 10/31 - Transferred to ICU - hyponatremia improving 126-->128 - Continue PT - TSH normal - appreciate pulmonary recs - will monitor labs Plan 11/01 - Hyoponatremia improved 129 (128,126) - HF oxygen 9-10L with Bipap at night, being managed by Pulmonary - continue PT - appreciate pulmonary recs - encourage nutritional intake - monitor labs -monitor for BM, last one 10/29 - consider moving to step down when appropriate. Plan 11/02 - Hyoponatremia improved 131 (129,128,126) - HF oxygen 5-6L with Bipap at night, being managed by Pulmonary - continue PT - appreciate pulmonary recs - encourage nutritional intake - monitor labs - transferring to cardiac unit PARIS SPRINGER DO 11/03/202036: Subjective Subjective/Events-last exam Patient is much better No Vapotherm Bipap last night Abx maintained Review of Systems General: Fatigue Pulmonary: Dyspnea Objective Exam General Appearance: No Apparent Distress, WD/WN, Chronically ill Respiratory: Lungs Clear, Decreased Breath Sounds Cardiovascular: Regular Rate, Rhythm Neurologic/Psychiatric: Alert, Oriented x3, No Motor/Sensory Deficits, Normal Mood/Affect Assessment/Plan Assessment and Plan Assess & Plan/Chief Complaint Transfer to [facility] Monitor O2 Supervisory-Addendum Brief Verification & Attestation Participated in pt care: history, MDM, physical Personally performed: exam, history, MDM, supervision of care Care discussed with: Medical Student Procedures: n/a Results interpretation: Verified all documentation Verification and Attestation of Medical Student E/M Service A medical student performed and documented this service in my presence. I reviewed and verified all information documented by the medical student and made modifications to such information, when appropriate. I personally performed the physical exam and medical decision making. Paris Springer, Nov 03, 2020,20:36 [facility] Nov 02, 2020 13:18 PARIS SPRINGER DO Nov 03, 2020 20:37
[2020-11-02] MEDS: ENOXAPARIN 40 MG/0.4 ML (LOVENOX) SYR SQ SCH (14:16)
[2020-11-02] MEDS: traZODone 50 MG (DESYREL) TAB PO SCH (20:20)
[2020-11-02] MEDS: MIRTAZAPINE 15 MG (REMERON) TAB PO SCH (20:20)
[2020-11-02] MEDS: ASPIRIN 81 MG CHEW (CHILDREN'S ASA) PO SCH (20:20)
[2020-11-02] MEDS: ALPRAZolam 0.5 MG (XANAX) TAB PO PRN (20:20)
[2020-11-02] MEDS: ROSUVASTATIN 5 MG (CRESTOR) TABLET PO SCH (20:21)
[2020-11-03] VITALS (14 sets, daily range): BP systolic 95–131; BP diastolic 55–87
[2020-11-03] MEDS: RT-ALBUTEROL SULF 2.5 MG/3 ML PRE-MIX VIAL INH SCH ×6 (02:15→22:03)
[2020-11-03 03:44] LABS: BASOPHILS % (AUTO) 0 % (0-10); EOSINOPHILS % (AUTO) 0 % (0-10); HEMATOCRIT 29 % (40-54); HEMOGLOBIN 9.6 g/dL (13.3-17.7); LYMPHOCYTES % (AUTO) 9 % (12-44); MEAN CORPUSCULAR HEMOGLOBIN 27 pg (25-34); MEAN CORPUSCULAR HGB CONC 33 g/dL (32-36); MEAN CORPUSCULAR VOLUME 84 fL (80-99); MEAN PLATELET VOLUME 9.4 fL (9.0-12.2); MONOCYTES # (AUTO) 0.8 10^3/uL (0.0-1.0); MONOCYTES % (AUTO) 4 % (0-12); NEUTROPHILS # (AUTO) 17.7 10^3/uL (1.8-7.8); NEUTROPHILS % (AUTO) 85 % (42-75); PLATELET COUNT 554 10^3/uL (130-400)
[2020-11-03 03:58] LABS: ALBUMIN 2.8 GM/DL (3.2-4.5)
[2020-11-03 03:59] LABS: CHLORIDE 93 MMOL/L (98-107); POTASSIUM 4.7 MMOL/L (3.6-5.0); SODIUM 130 MMOL/L (135-145)
[2020-11-03 04:01] LABS: GLUCOSE 126 MG/DL (70-105); TOTAL PROTEIN 5.4 GM/DL (6.4-8.2)
[2020-11-03 04:02] LABS: CARBON DIOXIDE 29 MMOL/L (21-32)
[2020-11-03 04:03] LABS: BILIRUBIN,TOTAL 0.2 MG/DL (0.1-1.0)
[2020-11-03 04:05] LABS: ALKALINE PHOSPHATASE 83 U/L (40-136); CREATININE SERUM 0.69 MG/DL (0.60-1.30); GFR ESTIMATED > 60
[2020-11-03 04:06] LABS: BUN/CREATININE RATIO 36
[2020-11-03 04:28] LABS: BAND NEUTROPHILS 0 %; BASOPHILS % (MANUAL) 0 %; EOSINOPHILS % (MANUAL) 0 %; LYMPHOCYTES % (MANUAL) 15 %; MONOCYTES % (MANUAL) 2 %; NEUTROPHILS % (MANUAL) 83 %; RBC MORPH NORMAL
[2020-11-03 04:41] LABS: ALANINE AMINOTRANSFERASE 62 U/L (0-55)
--- NOTE | 2020-11-03 08:28 | Diagnostic Imaging Report ---
INDICATION: Pneumonia and respiratory distress. TIME OF EXAM: 2:01 AM CORRELATION is made with prior chest from 11/02/2020. Heart size is stable. Bilateral infiltrates showed no real change. No significant effusion is seen. There is no pneumothorax. IMPRESSION: Bilateral pulmonary infiltrates, similar to examination one day earlier. Dictated by: Dictated on workstation # [id number]
[2020-11-03] MEDS: methylPREDNISolone 40 MG/ML (Solu-MEDROL) VIAL IV SCH ×2 (08:29→20:24)
[2020-11-03] MEDS: FLUoxetine HCL 20 MG (PROzac) CAP PO SCH (08:29)
[2020-11-03] MEDS: LORATADINE (CLARITIN) 10 MG TAB PO SCH (08:29)
[2020-11-03] MEDS: SOTALOL 80 MG (BETAPACE) TAB PO SCH ×2 (08:30→20:24)
[2020-11-03] MEDS: CLOPIDOGREL 75 MG (PLAVIX) TABLET PO SCH (08:30)
[2020-11-03] MEDS: PANTOPRAZOLE 40 MG (PROTONIX) TAB PO SCH (08:30)
[2020-11-03] MEDS: AZITHROMYCIN 250 MG TAB (ZITHROMAX) PO SCH (08:30)
[2020-11-03] MEDS: DIVALPROEX EXT RELEASE 250 MG (DEPAKOTE ER) TAB PO SCH ×2 (08:30→20:23)
--- NOTE | 2020-11-03 11:24 | Progress Note - Hospitalist ---
Subjective HPI/CC On Admission Date Seen by Provider: Nov 03, 2020 Time Seen by Provider: 11:30 Subjective/Events-last exam Patient doing well No pain reported Checked meds and labs 4-6 Liters of O2 Transferring to 4th floor Review of Systems General: Fatigue Pulmonary: Dyspnea Focused Exam Time of Focused Exam: 11:00 Objective Exam Vital Signs Vital Signs Date Time Temp Pulse Resp B/P (MAP) Pulse Ox O2 Delivery O2 Flow Rate FiO2 11/04/20 03:47 36.0 68 20 123/76 (92) 93 High Flow N/C 5.00 11/01/20 10:15 80 Capillary Refill : Less Than 3 Seconds General Appearance: No Apparent Distress, WD/WN, Chronically ill Respiratory: Chest Non Tender, Lungs Clear, Normal Breath Sounds, No Accessory Muscle Use, No Respiratory Distress Cardiovascular: Regular Rate, Rhythm, No Edema, No Gallop, No JVD, No Murmur, Normal Peripheral Pulses Neurologic/Psychiatric: Alert, Oriented x3, No Motor/Sensory Deficits, Normal Mood/Affect Results/Procedures Lab Patient resulted labs reviewed. Assessment/Plan Assessment and Plan Assess & Plan/Chief Complaint Assessment: Severe and recurrent PNA Acute hypoxia resp failure ICU maintained HLIVF Fluid PO restriction Plan: Improved status Move to 4th floor HERO RODRIGUES DO Nov 03, 2020 11:24
--- NOTE | 2020-11-03 12:05 | Physical Therapy Daily Note ---
PT Daily Note-Current Subjective States that he is doing okay. Transfers SCALE: Activities may be completed with or without assistive devices. 7-Lnadjnrext-fmxljjv completes the activity by him/herself with no assistance from a helper. 5-Set-up or Clean-up Assistance-helper sets up or cleans up; patient completes activity. [place] assists only prior to or following the activity. 4-Supervision or Touching Assistance-helper provides verbal cues and/or touching/steadying and/or contact guard assistance as patient completes activity. Assistance may be provided throughout the activity or intermittently. 3-Partial/Moderate Assistance-helper does LESS THAN HALF the effort. [place] lifts, holds or supports trunk or limbs, but provides less than half the effort. 2-Substantial/Maximal Assistance-helper does MORE THAN HALF the effort. [place] lifts or holds trunk or limbs and provides more than half the effort. 7-Vtvseokeu-uwrrsx does ALL the effort. Patient does none of the effort to complete the activity. Or, the assistance of 2 or more helpers is required for the patient to complete the activity. If activity was not attempted, code reason: 7-Patient Refused. 9-Not Applicable-not attempted and the patient did not perform the activity before the current illness, exacerbation or injury. 10-Not Attempted due to Environmental Limitations-(lack of equipment, weather restraints, etc.). 88-Not Attempted due to Medical Conditions or Safety Concerns. Roll Left & Right (QC): 5 Sit to Lying (QC): 5 Lying to Sitting/Side of Bed(Q: 5 Sit to Stand (QC): 5 Chair/Ppz-ek-Wkdpz Xfer(QC): 5 Gait Training Does the Patient Walk?: Yes Distance: 15' Walk 10 feet (QC): 5 Gait Assistive Device: FWW Assessment Current Status: Good Progress Patient is doing well with gait and transfers. PT Short Term Goals Short Term Goals Time Frame: Nov 09, 2020 Roll Left & Right: 6 Sit to lyin Lying to sitting on side of be: 6 Sit to stand: 6 Chair/rla-rc-tlhjw transfer: 6 Toilet transfer: 6 Walk 10 feet: 6 Walk 50 feet with two turns: 6 Walk 150 feet: 6 PT Plan Treatment/Plan Treatment Plan: Continue Plan of Care Treatment Plan: Education, Functional Activity Erin, Therapeutic Exercise Treatment Duration: Nov 09, 2020 Frequency: 6 times per week Estimated Hrs Per Day: .25 hour per day Patient and/or Family Agrees t: Yes Time/GCodes Time In: 1150 Time Out: 1200 Total Billed Treatment Time: 10 Total Billed Treatment 1, FA x 10' SUDHA SONG PT Nov 03, 2020 12:05
[2020-11-03] MEDS: ENOXAPARIN 40 MG/0.4 ML (LOVENOX) SYR SQ SCH (14:05)
[2020-11-03] MEDS: ROSUVASTATIN 5 MG (CRESTOR) TABLET PO SCH (20:23)
[2020-11-03] MEDS: MIRTAZAPINE 15 MG (REMERON) TAB PO SCH (20:23)
[2020-11-03] MEDS: traZODone 50 MG (DESYREL) TAB PO SCH (20:23)
[2020-11-03] MEDS: ALPRAZolam 0.5 MG (XANAX) TAB PO PRN (20:30)
[2020-11-03] MEDS: ASPIRIN 81 MG CHEW (CHILDREN'S ASA) PO SCH (20:30)
[2020-11-04] MEDS: RT-ALBUTEROL SULF 2.5 MG/3 ML PRE-MIX VIAL INH SCH ×6 (01:09→21:38)
[2020-11-04 03:47] VITALS: BP 123/76
[2020-11-04 07:24] LABS: BASOPHILS % (AUTO) 0 % (0-10); EOSINOPHILS % (AUTO) 0 % (0-10); HEMATOCRIT 31 % (40-54); HEMOGLOBIN 9.9 g/dL (13.3-17.7); LYMPHOCYTES # (AUTO) 3.4 10^3/uL (1.0-4.0); LYMPHOCYTES % (AUTO) 18 % (12-44); MEAN CORPUSCULAR HEMOGLOBIN 27 pg (25-34); MEAN CORPUSCULAR HGB CONC 32 g/dL (32-36); MEAN CORPUSCULAR VOLUME 84 fL (80-99); MEAN PLATELET VOLUME 8.6 fL (9.0-12.2); MONOCYTES # (AUTO) 1.2 10^3/uL (0.0-1.0); MONOCYTES % (AUTO) 6 % (0-12); NEUTROPHILS # (AUTO) 13.2 10^3/uL (1.8-7.8); NEUTROPHILS % (AUTO) 71 % (42-75); PLATELET COUNT 557 10^3/uL (130-400); WHITE BLOOD COUNT 18.5 10^3/uL (4.3-11.0)
[2020-11-04 07:58] LABS: ALANINE AMINOTRANSFERASE 43 U/L (0-55); ALBUMIN 2.8 GM/DL (3.2-4.5); ALKALINE PHOSPHATASE 69 U/L (40-136); BILIRUBIN,TOTAL 0.2 MG/DL (0.1-1.0); BUN/CREATININE RATIO 30; CALCIUM 8.6 MG/DL (8.5-10.1); CARBON DIOXIDE 29 MMOL/L (21-32); CHLORIDE 94 MMOL/L (98-107); CREATININE SERUM 0.69 MG/DL (0.60-1.30); GFR ESTIMATED > 60; GLUCOSE 110 MG/DL (70-105); POTASSIUM 4.9 MMOL/L (3.6-5.0); SODIUM 133 MMOL/L (135-145); TOTAL PROTEIN 5.4 GM/DL (6.4-8.2)
[2020-11-04 08:14] VITALS: BP 98/59
[2020-11-04] MEDS: SOTALOL 80 MG (BETAPACE) TAB PO SCH ×2 (09:17→20:56)
[2020-11-04] MEDS: methylPREDNISolone 40 MG/ML (Solu-MEDROL) VIAL IV SCH ×2 (09:30→20:55)
[2020-11-04] MEDS: FLUoxetine HCL 20 MG (PROzac) CAP PO SCH (09:30)
[2020-11-04] MEDS: DIVALPROEX EXT RELEASE 250 MG (DEPAKOTE ER) TAB PO SCH ×2 (09:31→20:55)
[2020-11-04] MEDS: LORATADINE (CLARITIN) 10 MG TAB PO SCH (09:31)
[2020-11-04] MEDS: PANTOPRAZOLE 40 MG (PROTONIX) TAB PO SCH (09:31)
[2020-11-04] MEDS: CLOPIDOGREL 75 MG (PLAVIX) TABLET PO SCH (09:31)
--- NOTE | 2020-11-04 11:13 | Progress Note - Hospitalist ---
Subjective HPI/CC On Admission Date Seen by Provider: Nov 04, 2020 Time Seen by Provider: 11:15 Subjective/Events-last exam No major issues Tired Less dyspnea No pain reported BM+ Labs reviewed Review of Systems General: Fatigue, Malaise Pulmonary: Dyspnea Focused Exam Time of Focused Exam: 11:00 Objective Exam Vital Signs Vital Signs Date Time Temp Pulse Resp B/P (MAP) Pulse Ox O2 Delivery O2 Flow Rate FiO2 11/04/20 16:00 36.8 77 20 129/87 (101) 92 High Flow N/C 3.00 11/01/20 10:15 80 Capillary Refill : Less Than 3 Seconds General Appearance: No Apparent Distress, WD/WN, Chronically ill Respiratory: Chest Non Tender, Lungs Clear, Normal Breath Sounds, No Accessory Muscle Use, No Respiratory Distress, Decreased Breath Sounds Cardiovascular: Regular Rate, Rhythm, No Edema, No Gallop, No JVD, No Murmur, Normal Peripheral Pulses Neurologic/Psychiatric: Alert, Oriented x3, No Motor/Sensory Deficits, Normal Mood/Affect Results/Procedures Lab Laboratory Tests 11/04/20 07:17 Patient resulted labs reviewed. Assessment/Plan Assessment and Plan Assess & Plan/Chief Complaint Assessment: Severe and recurrent PNA Acute hypoxia resp failure ICU maintained HLIVF Fluid PO restriction Plan: Improved status Move to 4th floor 11/04/20: Continue meds O2 Steroids HERO RODRIGUES DO Nov 04, 2020 11:13
[2020-11-04 11:50] VITALS: BP 118/76
[2020-11-04] MEDS: ENOXAPARIN 40 MG/0.4 ML (LOVENOX) SYR SQ SCH (14:06)
[2020-11-04 16:00] VITALS: BP 129/87
[2020-11-04 20:00] VITALS: BP 112/75
[2020-11-04] MEDS: traZODone 50 MG (DESYREL) TAB PO SCH (20:55)
[2020-11-04] MEDS: ASPIRIN 81 MG CHEW (CHILDREN'S ASA) PO SCH (20:55)
[2020-11-04] MEDS: MIRTAZAPINE 15 MG (REMERON) TAB PO SCH (20:55)
[2020-11-04] MEDS: ALPRAZolam 0.5 MG (XANAX) TAB PO PRN (20:55)
[2020-11-04] MEDS: ROSUVASTATIN 5 MG (CRESTOR) TABLET PO SCH (20:55)
[2020-11-04 23:20] VITALS: BP 124/80
[2020-11-05] MEDS: RT-ALBUTEROL SULF 2.5 MG/3 ML PRE-MIX VIAL INH SCH ×4 (04:10→14:16)
[2020-11-05 04:13] VITALS: BP 112/77
[2020-11-05 05:49] LABS: BASOPHILS # (AUTO) 0.2 10^3/uL (0.0-0.1); BASOPHILS % (AUTO) 1 % (0-10); EOSINOPHILS % (AUTO) 0 % (0-10); HEMATOCRIT 32 % (40-54); HEMOGLOBIN 10.6 g/dL (13.3-17.7); LYMPHOCYTES # (AUTO) 3.6 10^3/uL (1.0-4.0); LYMPHOCYTES % (AUTO) 16 % (12-44); MEAN CORPUSCULAR HEMOGLOBIN 28 pg (25-34); MEAN CORPUSCULAR HGB CONC 33 g/dL (32-36); MEAN CORPUSCULAR VOLUME 84 fL (80-99); MEAN PLATELET VOLUME 8.9 fL (9.0-12.2); MONOCYTES # (AUTO) 1.1 10^3/uL (0.0-1.0); MONOCYTES % (AUTO) 5 % (0-12); NEUTROPHILS # (AUTO) 15.7 10^3/uL (1.8-7.8); NEUTROPHILS % (AUTO) 72 % (42-75); PLATELET COUNT 606 10^3/uL (130-400); WHITE BLOOD COUNT 21.8 10^3/uL (4.3-11.0)
[2020-11-05 06:12] LABS: ALANINE AMINOTRANSFERASE 40 U/L (0-55); ALBUMIN 2.9 GM/DL (3.2-4.5); ALKALINE PHOSPHATASE 68 U/L (40-136); BILIRUBIN,TOTAL 0.2 MG/DL (0.1-1.0); BUN/CREATININE RATIO 31; CALCIUM 8.7 MG/DL (8.5-10.1); CARBON DIOXIDE 27 MMOL/L (21-32); CHLORIDE 95 MMOL/L (98-107); GFR ESTIMATED > 60; GLUCOSE 125 MG/DL (70-105); POTASSIUM 4.9 MMOL/L (3.6-5.0); SODIUM 132 MMOL/L (135-145); TOTAL PROTEIN 5.5 GM/DL (6.4-8.2)
[2020-11-05 08:00] VITALS: BP 119/69
[2020-11-05] MEDS: SOTALOL 80 MG (BETAPACE) TAB PO SCH (08:38)
[2020-11-05] MEDS: CLOPIDOGREL 75 MG (PLAVIX) TABLET PO SCH (08:38)
[2020-11-05] MEDS: LORATADINE (CLARITIN) 10 MG TAB PO SCH (08:38)
[2020-11-05] MEDS: DIVALPROEX EXT RELEASE 250 MG (DEPAKOTE ER) TAB PO SCH (08:38)
[2020-11-05] MEDS: FLUoxetine HCL 20 MG (PROzac) CAP PO SCH (08:38)
[2020-11-05] MEDS: methylPREDNISolone 40 MG/ML (Solu-MEDROL) VIAL IV SCH (08:38)
[2020-11-05] MEDS: PANTOPRAZOLE 40 MG (PROTONIX) TAB PO SCH (08:40)
--- NOTE | 2020-11-05 10:15 | Progress Note ---
Subjective Subjective Date Seen by Provider: Nov 05, 2020 Time Seen by Provider: 09:45 Odilon is a 55 yo male that presented on 10/26 with hypoxia, PNA, and acute respiratory failure. Pt was alert and oriented laying in bed when I entered that room. Pt denied nausea, SOB, and chest pain. Pt is on 3L of O2 via N/C with an O2 sat of 92%. Pt stated that he is ready to go home and wants to know what the plan is for his care moving forward. Pt states that he has O2 machine and portable O2 already at his house. Pt stated that he is eating/drinking much better now than he did before coming to the hospital. He is able to go to and from the restroom by himself and denies issue with BM or urination. Review of Systems General: No Fatigue, No Malaise Pulmonary: Dyspnea Cardiovascular: No: Chest Pain, Palpitations Gastrointestinal: No: Nausea, Vomiting, Abdominal Pain, Constipation Genitourinary: No Dysuria, No Frequency Neurological: Weakness All Other Systems Reviewed All Other Systems Reviewed: Yes Objective Exam Vital Signs Vital Signs - First Documented 10/30/20 10/30/20 00:00 02:19 Temp 37.2 Pulse 77 Resp 21 B/P (MAP) 116/68 (84) Pulse Ox 92 O2 Delivery Vapotherm O2 Flow Rate 20.00 65.00 FiO2 65 Capillary Refill : Less Than 3 Seconds General Appearance: No Apparent Distress, WD/WN, Chronically ill Eyes: Bilateral Eye Normal Inspection, Bilateral Eye PERRL, Bilateral Eye EOMI HEENT: PERRL/EOMI, Pharynx Normal Neck: Non Tender, Supple Respiratory: Chest Non Tender, No Accessory Muscle Use, No Respiratory Distress, Crackles (bilateral lower lobes), Decreased Breath Sounds Cardiovascular: Regular Rate, Rhythm, No Edema, No Gallop, No Murmur, Normal Peripheral Pulses Gastrointestinal: Normal Bowel Sounds, No Pulsatile Mass, Non Tender, Soft Rectal: Deferred Extremity: Non Tender, No Calf Tenderness, No Pedal Edema Neurologic/Psychiatric: Alert, Oriented x3, No Motor/Sensory Deficits, Normal Mood/Affect Skin: Normal Color, Warm/Dry Lymphatic: No Adenopathy Results Lab Laboratory Tests 11/05/20 05:39: White Blood Count 21.8H, Red Blood Count 3.82L, Hemoglobin 10.6L, Hematocrit 32L , Mean Corpuscular Volume 84, Mean Corpuscular Hemoglobin 28, Mean Corpuscular Hemoglobin Concent 33, Red Cell Distribution Width 13.9, Platelet Count 606H, Mean Platelet Volume 8.9L, Immature Granulocyte % (Auto) 6, Neutrophils (%) (Auto) 72, Lymphocytes (%) (Auto) 16, Monocytes (%) (Auto) 5, Eosinophils (%) (Auto) 0, Basophils (%) (Auto) 1, Neutrophils # (Auto) 15.7H, Lymphocytes # (Auto) 3.6, Monocytes # (Auto) 1.1H, Eosinophils # (Auto) 0.0, Basophils # (Auto) 0.2H, Immature Granulocyte # (Auto) 1.3H, Sodium Level 132L, Potassium Level 4.9, Chloride Level 95L, Carbon Dioxide Level 27, Anion Gap 10, Blood Urea Nitrogen 22H, Creatinine 0.70, Estimat Glomerular Filtration Rate > 60, BUN/Creatinine Ratio 31, Glucose Level 125H, Calcium Level 8.7, Corrected Calcium 9.6, Total Bilirubin 0.2, Aspartate Amino Transf (AST/SGOT) 18, Alanine Aminotransferase (ALT/SGPT) 40, Alkaline Phosphatase 68, Total Protein 5.5L, Albumin 2.9L Microbiology 10/26/20 MRSA Screen - Final, Complete MRSA not isolated 10/26/20 Urine Culture - Final, Complete NO GROWTH 10/26/20 Blood Culture - Final, Complete No growth Assessment/Plan Assessment/Plan Assessment and Plan Assessment: PNA hypoxia- O2 sat of 92% on 3L O2 via N/C acute respiratory failure anemia- Hgb of 10.6 leukocytosis- WBC of 21.8 Plan: discharge home on O2 review home medication list Supervisory-Addendum Brief Verification & Attestation Participated in pt care: history, physical Personally performed: exam, history Care discussed with: Medical Student Procedures: n/a Verification and Attestation of Medical Student E/M Service A medical student performed and documented this service in my presence. I reviewed and verified all information documented by the medical student and made modifications to such information, when appropriate. I personally performed the physical exam and medical decision making. Leonora Goins, Nov 05, 2020,17:53 NANO SUAREZ MED STUDENT Nov 05, 2020 10:15 LEONORA GOINS MD Nov 05, 2020 17:54
--- NOTE | 2020-11-05 10:15 | Physical Therapy Daily Note ---
PT Daily Note-Current Subjective Patient agrees to PT. He reports he is going home today. Mental Status Patient Orientation: Normal For Age Attachments: Oxygen Transfers SCALE: Activities may be completed with or without assistive devices. 5-Nusigovpjz-lnbegwa completes the activity by him/herself with no assistance from a helper. 5-Set-up or Clean-up Assistance-helper sets up or cleans up; patient completes activity. Lane assists only prior to or following the activity. 4-Supervision or Touching Assistance-helper provides verbal cues and/or touching/steadying and/or contact guard assistance as patient completes activity. Assistance may be provided throughout the activity or intermittently. 3-Partial/Moderate Assistance-helper does LESS THAN HALF the effort. Lane lifts, holds or supports trunk or limbs, but provides less than half the effort. 2-Substantial/Maximal Assistance-helper does MORE THAN HALF the effort. Lane lifts or holds trunk or limbs and provides more than half the effort. 0-Woiluubmv-vgdrhs does ALL the effort. Patient does none of the effort to complete the activity. Or, the assistance of 2 or more helpers is required for the patient to complete the activity. If activity was not attempted, code reason: 7-Patient Refused. 9-Not Applicable-not attempted and the patient did not perform the activity before the current illness, exacerbation or injury. 10-Not Attempted due to Environmental Limitations-(lack of equipment, weather restraints, etc.). 88-Not Attempted due to Medical Conditions or Safety Concerns. Roll Left & Right (QC): 6 Lying to Sitting/Side of Bed(Q: 6 Sit to Stand (QC): 6 Chair/Mgg-ph-Klgcx Xfer(QC): 6 Gait Training Does the Patient Walk?: Yes Distance: 300' Walk 10 feet (QC): 6 Walk 50 ft with 2 Turns(QC): 6 Walk 150 ft (QC): 6 Gait Assistive Device: None Assessment Patient is currently independent with all mobility and is up ad kevin in room. PT to dismiss patient from services at this time. Goals attained. PT Short Term Goals Short Term Goals Time Frame: Nov 09, 2020 Roll Left & Right: 6 Sit to lyin Lying to sitting on side of be: 6 Sit to stand: 6 Chair/qso-eg-qgvfk transfer: 6 Toilet transfer: 6 Walk 10 feet: 6 Walk 50 feet with two turns: 6 Walk 150 feet: 6 PT Plan Treatment/Plan Treatment Plan: Discontinue PT, goals met Treatment Plan: Education, Functional Activity Erin, Therapeutic Exercise Treatment Duration: Nov 09, 2020 Frequency: 6 times per week Estimated Hrs Per Day: .25 hour per day Patient and/or Family Agrees t: Yes Time/GCodes Time In: 944 Time Out: 954 Total Billed Treatment Time: 10 Total Billed Treatment 1 visit FA 10 min GWENDOLYN AYALA PT Nov 05, 2020 10:15
[2020-11-05 11:57] VITALS: BP 121/81
--- NOTE | 2020-11-05 12:52 | Discharge Summary ---
Diagnosis/Chief Complaint Date of Admission Oct 26, 2020 at 09:40 Date of Discharge 11/05/2020 Admission Diagnosis Admission Diagnosis See problem list Discharge Diagnosis See below Problems/Diagnosis: (1) Acute respiratory failure with hypoxemia Assessment & Plan: 11/05: Home oxygen study with 6L with exertion and 3L at rest, Continue IS at home, Steroid taper to be completed at home Status: Acute (2) Sepsis Assessment & Plan: 11/05: Resolved at discharge, leukocytosis likely 2/2 to steroid use Qualifiers: Qualified Codes: A41.9 - Sepsis, unspecified organism Status: Acute (3) Bilateral pneumonia Assessment & Plan: 11/05: Likely 2/2 post covid syndrome, will continue with steroid taper at home Qualifiers: Qualified Codes: J18.9 - Pneumonia, unspecified organism Status: Chronic (4) History of CVA (cerebrovascular accident) Status: Chronic (5) Depression Status: Chronic (6) Hypertension Assessment & Plan: 11/05: Normotensive blood pressure, holding some home meds, c an be restarted by PCP if blood pressure trends up Qualifiers: Qualified Codes: I10 - Essential (primary) hypertension Status: Chronic (7) Anxiety Status: Chronic (8) DVT prophylaxis Assessment & Plan: Enoxaparin Status: Acute Chief Complaint/HPI Chief Complaint/HPI 55 yo with recurrent respiratory symptoms. He states he was treated with anti biotics by Dr. Can outpatient, and got sick again just after, got a second course and did okay for about a week and a half to the point he didn't even need supplemental oxygen. However on Thursday he started getting chills and shortness of breath and oxygen was dropping into the 70s with moving around. He has been using oxygen at up to 4 lpm. He had temperature up to 102 measured at home. Has has had some cough. Discharge Summary-Simple/Stand Consultations Dr Lawson: Pulm, CC Discharge Physical Examination Allergies: Coded Allergies: KRIS Inhibitors (Unverified Allergy, Severe, FACIAL SWELLING, 05/20/13) haloperidol (Verified Allergy, Severe, 10/13/13) phenazopyridine HCl (Unverified Allergy, Severe, FACIAL SWELLING, 05/20/13) Vitals & I&Os Vital Sign - Last 12Hours Date Time Temp Pulse Resp B/P (MAP) Pulse Ox O2 Delivery O2 Flow Rate FiO2 11/05/20 11:57 36.5 67 20 121/81 (94) 95 High Flow N/C 2.00 11/01/20 10:15 80 Intake and Output 11/05/20 00:00 Intake Total 2310 ml Balance 2310 ml General Appearance: Alert, Oriented X3, Mild Distress (with exertion) Respiratory: Other (Normal work of breathing at baseline, dimished breath sounds at the bases, some scattered wheezing no crackles) Cardiovascular: Regular Rate, No Murmurs Abdominal: Normal Bowel Sounds, Soft, No Tenderness, No Masses Extremities: No Edema, No Tenderness/Swelling Skin: No Rashes, No Breakdown Neuro: Normal Speech, Sensation Intact, Cranial Nerves 3-12 NL Psych/Mental Status: Mental Status NL, Mood NL Hospital Course Was the Problem List Reviewed?: Yes See final discharge diagnosis. Radiology Reviewed CTA chest: DRAFT IMPRESSION: 1. No evidence of pulmonary embolism or thoracic aortic dissection. 2. Continued mediastinal and hilar lymphadenopathy, similar to CT study from one month earlier. 3. Extensive airspace and ground glass pulmonary infiltrates throughout bilateral upper and lower lobes consistent with infectious/inflammatory process. This has progressed since CT one month earlier. Discussion & Recommendations 55 yo M that has been admitted several times in the last few months after covid PNA. Patient returned with hypoxia and acute respiratory failure with CT findings of bilateral interstitial markings. Patient improved slowly and was t itrated down to oxygen 3L at rest and 6L with exertion. Discussed the importance of wearing the oxygen at home as previously he did not wear it once he got home which is likely why he had decompensation. Patient's blood pressure medications were deescalated during this admission due to blood pressures in normotensive range. Will go home on oxygen and steroid taper. Discharge Condition at discharge Stable Instructions to patient/family Please see electronic discharge instructions given to patient. Discharge Medications Reviewed and agree with Discharge Medication list on patient's Discharge Instruction sheet Copy Copies To 1: ALIN CAN MD, HOLLY R MD Nov 05, 2020 12:52
[2020-11-05] MEDS ORDERED: AMLO-251 PO (12:56)
[2020-11-05] MEDS ORDERED: PRD20T PO (12:56)
--- NOTE | 2020-11-05 12:58 | Discharge Summary ---
Discharge [facility] Reconcile Patient Problems Problems Reviewed?: Yes Discharge Medications New, Converted or Re-Newed RX: Transmitted to Pharmacy New Medications: Prednisone (Prednisone) 20 Mg Tab 20 MG PO DAILY, #20 TAB 3 tabs x 3 days then 2 tabs x 3 days then 1 tab x 3 days then 1/2 tab x 4 days then stop Changed Medications: Amlodipine Besylate (Amlodipine Besylate) 10 Mg Tablet 10 MG PO DAILY, #30 TAB (Medication details modified) Hold medication until seen by PCP Continued Medications: Aripiprazole (Aripiprazole) 5 Mg Tablet 5 MG PO HS, TAB Ascorbic Acid (Vitamin C) 1,000 Mg Tablet 1000 MG PO BID, TAB Aspirin (Aspirin) 81 Mg Tab.chew 81 MG PO HS, TAB Cetirizine HCl (Zyrtec) 10 Mg Tablet 10 MG PO DAILY, TAB Clopidogrel Bisulfate (Clopidogrel) 75 Mg Tablet 75 MG PO DAILY, TAB Divalproex Sodium (Divalproex Sodium ER) 250 Mg Tab.er.24h 250 MG PO BID, TAB Fluoxetine HCl (Fluoxetine HCl) 40 Mg Capsule 40 MG PO DAILY, CAP Mirtazapine (Remeron) 30 Mg Tablet 30 MG PO HS, TAB Multivit-Min/FA/Lycopene/Lut (Centrum Silver Tablet) 1 Each Tablet 1 EACH PO DAILY, TAB Linn-3S/Dha/Epa/Fish Oil (Fish Oil 1,200 mg Softgel) 1 Each Capsule 1 EACH PO BID, CAP Pantoprazole Sodium (Protonix) 40 Mg Tablet.dr 40 MG PO DAILY, TAB Rosuvastatin Calcium (Crestor) 5 Mg Tablet 5 MG PO HS, TAB Sotalol HCl (Betapace AF) 80 Mg Tablet 80 MG PO BID, TAB Trazodone HCl (Trazodone HCl) 50 Mg Tablet 50 MG PO HS, TAB Discontinued Medications: Gemfibrozil (Lopid) 600 Mg Tablet 600 MG PO HS, TAB Losartan Potassium (Losartan Potassium) 50 Mg Tablet 50 MG PO BID Patient Instructions Goal/Follow Up Appt: You have a f.u appt with Dr Can on Sunday 11/12 @ 3 PM Patient Instructions: - Make sure to review your medication list as some meds have changed Return to The Hospital For: - Increasing shortness of breath - Chest pain - Unable to take medication Activity & Diet Discharge Diet: Cardiac Diet Activity as Tolerated: Yes Copy Copies To 1: ALIN CAN MD, HOLLY R MD Nov 05, 2020 12:58
[2020-11-05] MEDS: ENOXAPARIN 40 MG/0.4 ML (LOVENOX) SYR SQ SCH (14:16)
[2020-11-05] MEDS ORDERED: IPRA3AMP31 IH (15:11)
== END 2020-11-05 15:30 | disposition home or self-care (01) | DRG 871 ==
LOC: EDUNIT# 08:23 → ER 08:25 → 4TH 09:40 → ICU 10-31 08:12 → 4TH 11-03 12:15
PROVIDERS: ADMIT Family Medicine; ATTEND Internal Medicine
PROC: 5A09457 Assistance with Respiratory Ventilation, 24-96 Consecutive Hours, Continuous Positive Airway Pressure (ICD-10-PCS; principal; 2020-10-31)
DX: A41.9 Sepsis, unspecified organism (principal); J96.01 Acute respiratory failure with hypoxia; J18.9 Pneumonia, unspecified organism; E87.1 Hypo-osmolality and hyponatremia; I69.351 Hemiplegia and hemiparesis following cerebral infarction affecting right dominant side; K21.9 Gastro-esophageal reflux disease without esophagitis; F32.9 Major depressive disorder, single episode, unspecified; F41.9 Anxiety disorder, unspecified; I10 Essential (primary) hypertension; E78.5 Hyperlipidemia, unspecified; G47.33 Obstructive sleep apnea (adult) (pediatric); F12.90 Cannabis use, unspecified, uncomplicated; Z87.01 Personal history of pneumonia (recurrent); Z86.711 Personal history of pulmonary embolism; Z79.02 Long term (current) use of antithrombotics/antiplatelets; Z79.82 Long term (current) use of aspirin; Z88.8 Allergy status to other drugs, medicaments and biological substances
CPT/HCPCS: 36415; 36600; 71045; 71275; 80048; 80053; 80306; 81000; 82805; 83605; 83735; 83880; 84100; 84145; 84443; 85007; 85025; 85027; 85610; 85730; 87040; 87081; 87088; 87449; 87631; 87804; 93306; 94640; 94660; 94664; 94760; 94761; 96361; 96365; 96375

== ENCOUNTER → 2020-12-26 | Outpatient (CLI) | payer MEDICARE, MEDICAID ==
[~2020-12-26] MED LIST changes: +CATHETER FLUSH 10 ML SYR IV PRN; +HOLD METFORMIN - RECEIVED CONTRAST 20 ML VIAL IV SCH; +IOHEXOL 350 MG/ML 100 ML (OMNIPAQUE 350) VIAL IV ONE; +IPRA3AMP31 IH; +NS 100 ML (IVPB) BAG IV ONE; +OMEG-213 PO; +PRD20T PO; +RT-ALBUTEROL SULF 2.5 MG/3 ML PRE-MIX VIAL INH ONE
[2020-12-26 09:17] LABS: BUN/CREATININE RATIO 9; CREATININE SERUM 0.89 MG/DL (0.60-1.30); GFR ESTIMATED > 60
--- NOTE | 2020-12-26 10:37 | Diagnostic Imaging Report ---
EXAMINATION: CT chest with intravenous contrast. TECHNIQUE: Multiple contiguous axial images were obtained through the chest after the uneventful administration of intravenous contrast. All CT scans use one or more of the following dose optimizing techniques: automated exposure control, MA and/or KvP adjustment based on patient size and exam type or iterative reconstruction. HISTORY: Pneumonia COMPARISON: 10/26/2020 FINDINGS: There is mild pulmonary edema as evidenced by septal line thickening. No pleural effusion. No pneumothorax. No suspicious nodules. There is no axillary or supraclavicular lymphadenopathy. There is an unchanged 11 mm right upper paratracheal lymph node. There is an unchanged 15 mm right lower paratracheal lymph node. Unchanged subcarinal lymph nodes are also seen that are enlarged. Heart size is normal. There are no coronary artery calcifications. No pericardial effusion. Aorta is normal in caliber. Limited views of the upper abdomen show changes of cholecystectomy. There are no suspicious osseus lesions. IMPRESSION: 1. Mild edema and likely reactive enlarged mediastinal lymph nodes, unchanged. Dictated by: Dictated on workstation # [id number]
== END ==
LOC: RAD 08:39
PROVIDERS: ATTEND Nurse Practitioner Family
DX: J18.9 Pneumonia, unspecified organism (principal)
CPT/HCPCS: 36415; 71260; 82565; 84520; 94060; 94726; 94729

== ENCOUNTER 2021-02-28 05:37 | Outpatient (RCR) | payer MEDICARE, MEDICAID ==
[~2021-02-28] VITALS: Ht 190.5 cm; Wt 108.9 kg
[~2021-02-28 05:37] MED LIST changes: -CATHETER FLUSH 10 ML SYR IV PRN; +FLUT1BLS3 IH; -HOLD METFORMIN - RECEIVED CONTRAST 20 ML VIAL IV SCH; -IOHEXOL 350 MG/ML 100 ML (OMNIPAQUE 350) VIAL IV ONE; -NS 100 ML (IVPB) BAG IV ONE; +RT-ALBUINH IH; -RT-ALBUTEROL SULF 2.5 MG/3 ML PRE-MIX VIAL INH ONE
== END 2021-02-28 10:17 | disposition home or self-care (01) ==
LOC: PREOP 05:37
PROVIDERS: ATTEND Surgery
DX: Z01.812 Encounter for preprocedural laboratory examination (principal); Z20.822 Contact with and (suspected) exposure to COVID-19
CPT/HCPCS: 87635

== ENCOUNTER 2021-03-04 10:24 | Day surgery (SDC) | payer MEDICARE, MEDICAID ==
[~2021-03-04] VITALS: Ht 190.5 cm; Wt 108.9 kg
[2021-03-04] MEDS ORDERED: LACTATED RINGERS 1,000 ML IV STA (10:39)
[2021-03-04] MEDS ORDERED: LACTATED RINGERS 1,000 ML IV ONE (10:39)
[2021-03-04 10:45] VITALS: BP 143/75
[2021-03-04] MEDS ORDERED: HURRICAINE EXT TUBE (BENZOCAINE) XX PRN (10:45)
[2021-03-04] MEDS ORDERED: MIDAZOLAM 2 MG/2 ML (VERSED) VIAL ONE (11:31)
[2021-03-04] MEDS ORDERED: PROPOFOL INJECTION 50 ML IV ONE (11:31)
[2021-03-04 12:00] VITALS: BP 109/63
[2021-03-04 12:05] VITALS: BP 117/70
[2021-03-04 12:18] VITALS: BP 117/70
[2021-03-04 12:35] VITALS: BP 116/69
--- NOTE | 2021-03-04 12:50 | Progress Note-Post Operative ---
Post-Operative Progess Note Surgeon (s)/Double Surface Operator (s) Surgeon CLOTILDE LAWTON DO Double Surface Operator: Shiv Campbell, ROBERT Pre-Operative Diagnosis screening colon, hx of perdue's esophagus Post-Operative Diagnosis Gastritis Gastric polyp hiatal hernia polyps hemorrhoids poor prep Procedure & Operative Findings Date of Procedure 03/04/21 Procedure Performed/Findings EGD with bx Colon with snare PROCEDURE NOTE: After informed consent was obtained, the patient was brought to the endoscopy suite, placed in bed in left lateral decubitus position. He was administered IV sedation by the OPEN SHANK COVERER who then monitored his vitals the entire time, heart rate, blood pressure and pulse ox, started with the EGD, placed the scope down the mouth through the esophagus into the stomach, noted some Gastritis, took a picture, pushed into the duodenum. Duodenum looked normal. Pulled back and did a biopsy of the antrum as well as biopsy of body of stomach. I also noted a few gastric polyps, retroflexed the scope. He had a small hiatal hernia, pulled the scope into the GE junction, did a biopsy here and then pushed the scope back into the stomach and suctioned all the air out, then pulled the scope up the esophagus and out the mouth. Switched camera, switched gloves, went down below, started the colonoscopy. On the way in, noted a lot of retained fecal material, took a picture of this, then pushed all the way to the cecum about 150 cm in, could not see the appendiceal orifice because of the fecal material; noted the ileo-cecal valve. Then slowly withdrew the scope insufflating to look circumferentially at the ovalle looking at the cecum, up the ascending colon. In the ascending colon saw a polyp and did a snare polypectomy. Then up to the hepatic flexure, down the transverse colon; where I saw two more polyps and also did snare polypectomies. Continued to the splenic flexure, into the descending colon down into the sigmoid and finally into the rectum, retroflexed in the rectal vault, saw some minimal internal hemorrhoids and took a picture.Then removed the scope. Unfortunately it was a very dirty prep and he will need a repeat in a year. The patient tolerated the procedure. He was recovered in endoscopy suite. Anesthesia Type IV sedation by OPEN SHANK COVERER Estimated Blood Loss Estimated blood loss (mL): scant Specimens/Packing Specimens Removed antral bx body of stomach GE jxn bx Asc colon polyp transverse colon polyp x 2 CLOTILDE LAWTON DO Mar 04, 2021 12:50
--- NOTE | 2021-03-04 12:51 | Endoscopy Discharge Instruct ---
Endo Procedure/Findings Findings 1.: Gastritis 2.: Hiatal Hernia 3.: Polyp 4.: Internal Hemorrhoids, Other Findings (poor prep) Discharge Instructions - Activity: You might feel a little sleepy until tomorrow. This is due to the medicine you received to relax you. Until tomorrow, you should: NOT drive a car, operate machinery or power tools. NOT drink any alcoholic beverages. NOT make any important decisions or sign importortant papers. Do not return to work until tomorrow, unless otherwise instructed. Resume previous activities tomorrow. Diet: Start by taking liquids. If you tolerate liquids, advance to solid food. 1.: Colonoscopy in 1 year 2.: EGD in 1 year Notify Physician - If you experience excessive bleeding, unusual abdominal pain, fever, or chest pain, contact your doctor immediately. CLOTILDE LAWTON DO Mar 04, 2021 12:51
--- NOTE | 2021-03-04 13:07 | Anesthesia-General Post-Op ---
MAC Patient Condition Mental Status/LOC: Same as Preop Cardiovascular: Satisfactory Nausea/Vomiting: Absent Respiratory: Satisfactory Pain: Controlled Complications: Absent Post Op Complications Complications None Follow Up Care/Instructions Patient Instructions None needed. Anesthesiology Discharge Order Discharge Order Patient is doing well, no complaints, stable vital signs, no apparent adverse anesthesia problems. No complications reported per nursing. TUNG JENKINS CRNA Mar 04, 2021 13:07
== END 2021-03-04 13:05 | disposition home or self-care (01) ==
LOC: ENDO 10:24
PROVIDERS: ATTEND Surgery
DX: Z12.11 Encounter for screening for malignant neoplasm of colon (principal); K29.70 Gastritis, unspecified, without bleeding; D12.2 Benign neoplasm of ascending colon; D12.3 Benign neoplasm of transverse colon; K22.70 Barrett's esophagus without dysplasia; K44.9 Diaphragmatic hernia without obstruction or gangrene; K64.8 Other hemorrhoids; K21.9 Gastro-esophageal reflux disease without esophagitis; I26.99 Other pulmonary embolism without acute cor pulmonale; I48.91 Unspecified atrial fibrillation; E78.00 Pure hypercholesterolemia, unspecified; E78.5 Hyperlipidemia, unspecified; I10 Essential (primary) hypertension; F32.9 Major depressive disorder, single episode, unspecified; Z79.82 Long term (current) use of aspirin; Z86.73 Personal history of transient ischemic attack (TIA), and cerebral infarction without residual deficits; Z79.899 Other long term (current) drug therapy; Z79.02 Long term (current) use of antithrombotics/antiplatelets

== ENCOUNTER 2021-06-19 09:30 | Day surgery (SDC) | payer MEDICARE, MEDICAID ==
[~2021-06-19] VITALS: Ht 190 cm; Wt 105.7 kg
[2021-06-19 10:02] VITALS: BP 146/98
[2021-06-19] MEDS ORDERED: LIDOCAINE 1% INJ 20 ML 20 ML VIAL ONE (10:10)
--- NOTE | 2021-06-19 11:08 | Implantation of Loop Monitor ---
Implant of Loop Monitior IMPLANTATION OF LOOP MONITOR REPORT DATE OF PROCEDURE: 06/19/21 PREOP DIAGNOSIS: Cryptogenic stroke POSTOP DIAGNOSIS: Cryptogenic stroke PROCEDURE DETAILS: The patient is a 56 male with history of cryptogenic stroke, had loop monitor extracted, no arrhythmia detected, we were discussing his long-term anticoagulation use and we decided to proceed with a loop monitor implant. Therefore implantable loop recorder was discussed and agreed with the patient. Informed consent was taken. All risks and complications were discussed at length. The patient was draped and prepped in the usual sterile fashion. Local anesthesia was lidocaine, which was given in the substernal area close to the 4th intercostal space. Loop monitor [employer] with serial number [id number] was implanted according to the protocol. Steri-Strips were placed at the end of the procedure. There were no complications and the patient tolerated the procedure well. ANESTHESIA: Local anesthesia with lidocaine. COMPLICATIONS: None CONTRAST/FLUOROSCOPY: None CONCLUSION: Successful implantation of loop monitor with no complication FINAL DIAGNOSIS: Cryptogenic stroke Palpitation Hypertension ALYSSA ANTHONY MD Jun 19, 2021 11:08
== END 2021-06-19 11:00 | disposition home or self-care (01) ==
LOC: CATH 09:30
PROVIDERS: ATTEND Internal Medicine Cardiovascular Disease
DX: I63.9 Cerebral infarction, unspecified (principal); I10 Essential (primary) hypertension; R00.2 Palpitations; I25.10 Atherosclerotic heart disease of native coronary artery without angina pectoris; I70.223 Atherosclerosis of native arteries of extremities with rest pain, bilateral legs; I65.23 Occlusion and stenosis of bilateral carotid arteries; G47.30 Sleep apnea, unspecified; G40.909 Epilepsy, unspecified, not intractable, without status epilepticus; E78.5 Hyperlipidemia, unspecified; Z79.82 Long term (current) use of aspirin; Z79.02 Long term (current) use of antithrombotics/antiplatelets; Z79.899 Other long term (current) drug therapy
CPT/HCPCS: 33285; C1764

== ENCOUNTER → 2021-06-27 | Outpatient (CLI) | payer MEDICARE, MEDICAID ==
[~2021-06-27] MED LIST changes: +CATHETER FLUSH 10 ML SYR IV PRN; +HOLD METFORMIN - RECEIVED CONTRAST 20 ML VIAL IV SCH; +IOHEXOL 350 MG/ML 100 ML (OMNIPAQUE 350) VIAL IV ONE; +NS 100 ML (IVPB) BAG IV ONE
[2021-06-27 08:53] LABS: CREATININE SERUM 0.92 MG/DL (0.60-1.30)
--- NOTE | 2021-06-27 09:53 | Diagnostic Imaging Report ---
CT CHEST W TECHNIQUE: Multiple contiguous axial images were obtained through the chest with the use of intravenous contrast. All CT scans use one or more of the following dose optimizing techniques: automated exposure control, MA and/or KvP adjustment based on a patient size and exam type, or iterative reconstruction. INDICATION: Mediastinal lymphadenopathy. COMPARISON: 12/26/2020 FINDINGS: Lungs and airway: No tracheal nodule. No pneumonia or edema. There is small amount of dependent atelectasis. 3 mm left lower lobe pulmonary nodule is stable and requires no dedicated follow up imaging. No new suspicious nodules. Pleura: No pleural effusion or pneumothorax. Heart and mediastinum: Resolution of enlarged right supraclavicular lymph node now measuring 8 mm, previously 14 mm. Enlarged mediastinal lymph nodes have also diminished in size, for example the right upper paratracheal lymph node now measures 8 mm, previously 12 mm. Right hilar lymphadenopathy has resolved. No new or enlarging lymph nodes. Heart is normal in size without pericardial effusion. Normal caliber thoracic aorta without dissection. Upper abdomen: No abnormality in the upper abdomen that would require further workup. Musculoskeletal: No concerning focal osseous lesions. IMPRESSION: 1. Resolution of reactive mediastinal and hilar lymphadenopathy. 2. No pneumonia or edema. Dictated by: Dictated on workstation # [id number]
== END ==
LOC: RAD 09:15
PROVIDERS: ATTEND Nurse Practitioner Family
DX: J18.9 Pneumonia, unspecified organism (principal)
CPT/HCPCS: 36415; 71260; 82565; 84520

== ENCOUNTER → 2021-07-09 | Outpatient (CLI) | payer MEDICARE, MEDICAID ==
[~2021-07-09] MED LIST changes: -CATHETER FLUSH 10 ML SYR IV PRN; -HOLD METFORMIN - RECEIVED CONTRAST 20 ML VIAL IV SCH; -IOHEXOL 350 MG/ML 100 ML (OMNIPAQUE 350) VIAL IV ONE; -NS 100 ML (IVPB) BAG IV ONE
--- NOTE | 2021-07-09 16:08 | Diagnostic Imaging Report ---
INDICATION: Chronic left hand pain. COMPARISON with 05/18/2011. FINDINGS: Three views. There is severe arthritic disease of the 1st CMC joint with lateral subluxation. There is erosion of the articulating surface with hypertrophic bony change. 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 No acute fractures are seen. The MP joints appear normal. IMPRESSION: 1. 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 2. 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 Dictated by: Dictated on workstation # [id number]
== END ==
LOC: RAD 15:07
PROVIDERS: ATTEND Surgery
DX: M19.042 Primary osteoarthritis, left hand (principal); S63.042A Subluxation of carpometacarpal joint of left thumb, initial encounter
CPT/HCPCS: 73130

== ENCOUNTER → 2021-07-10 | Outpatient (CLI) | payer MEDICARE, MEDICAID ==
[2021-07-10 14:08] LABS: ALBUMIN 4.1 GM/DL (3.2-4.5); POTASSIUM 4.2 MMOL/L (3.6-5.0)
[2021-07-10 14:09] LABS: CALCIUM 9.3 MG/DL (8.5-10.1)
[2021-07-10 14:12] LABS: BILIRUBIN,TOTAL 0.4 MG/DL (0.1-1.0)
[2021-07-10 14:14] LABS: CREATININE SERUM 0.85 MG/DL (0.60-1.30)
== END ==
LOC: LAB 13:26
PROVIDERS: ATTEND Physician Assistant
DX: E78.2 Mixed hyperlipidemia (principal); Z86.73 Personal history of transient ischemic attack (TIA), and cerebral infarction without residual deficits
CPT/HCPCS: 36415; 80053; 80061

== ENCOUNTER 2021-07-15 16:14 | Inpatient (IN) | payer MEDICARE, MEDICAID ==
[~2021-07-15] VITALS: Ht 191 cm; Wt 103.2 kg
[2021-07-15] MEDS ORDERED: ACETAMINOPHEN 500 MG TAB (TYLENOL) PO PRN ×2 (16:45→22:15)
[2021-07-15] MEDS ORDERED: LACTATED RINGERS 1,000 ML IV ONE ×2 (16:45)
[2021-07-15] MEDS ORDERED: CEFEPIME INJECTION 1,000 MG in NS (IVPB) 50 ML IV ONE ×2 (16:45→18:30)
[2021-07-15 17:02] LABS: ALBUMIN 4.5 GM/DL (3.2-4.5); POTASSIUM 4.1 MMOL/L (3.6-5.0)
[2021-07-15 17:03] LABS: CALCIUM 9.7 MG/DL (8.5-10.1)
[2021-07-15 17:05] LABS: TOTAL PROTEIN 7.6 GM/DL (6.4-8.2)
[2021-07-15 17:06] LABS: BASOPHILS # (AUTO) 0.1 10^3/uL (0.0-0.1); BASOPHILS % (AUTO) 0 % (0-10); BILIRUBIN,TOTAL 0.3 MG/DL (0.1-1.0); EOSINOPHILS # (AUTO) 0.4 10^3/uL (0.0-0.3); EOSINOPHILS % (AUTO) 2 % (0-10); HEMATOCRIT 40 % (40-54); HEMOGLOBIN 13.3 g/dL (13.3-17.7); LYMPHOCYTES # (AUTO) 1.7 10^3/uL (1.0-4.0); LYMPHOCYTES % (AUTO) 10 % (12-44); MEAN CORPUSCULAR HEMOGLOBIN 28 pg (25-34); MEAN CORPUSCULAR HGB CONC 33 g/dL (32-36); MEAN CORPUSCULAR VOLUME 85 fL (80-99); MEAN PLATELET VOLUME 10.2 fL (9.0-12.2); MONOCYTES # (AUTO) 1.2 10^3/uL (0.0-1.0); MONOCYTES % (AUTO) 7 % (0-12); NEUTROPHILS # (AUTO) 12.9 10^3/uL (1.8-7.8); NEUTROPHILS % (AUTO) 79 % (42-75); PLATELET COUNT 231 10^3/uL (130-400); WHITE BLOOD COUNT 16.3 10^3/uL (4.3-11.0)
[2021-07-15 17:08] LABS: CREATININE SERUM 0.9 MG/DL (0.60-1.30)
[2021-07-15 17:12] LABS: INR 0.9 (0.8-1.4); PROTHROMBIN TIME PATIENT 12.4 SEC (12.2-14.7)
[2021-07-15 17:25] LABS: EOSINOPHILS % (MANUAL) 2 %; LYMPHOCYTES % (MANUAL) 13 %; MONOCYTES % (MANUAL) 14 %; NEUTROPHILS % (MANUAL) 81 %; RBC MORPH NORMAL
--- NOTE | 2021-07-15 17:33 | Diagnostic Imaging Report ---
EXAMINATION: Chest 1 view HISTORY: sepsis COMPARISON: 11/03/2020 FINDINGS: Lung volumes are small. There is no edema or pneumonia. No pleural effusion or pneumothorax. Heart size is normal. Loop recorder projects over the chest. IMPRESSION: 1. Clear lungs. Dictated by: Dictated on workstation # [id number]
[2021-07-15] MEDS: VANCOMYCIN INJECTION 1,000 MG in NS (IVPB) 250 ML IV SCH ×2 (17:45→22:34)
--- NOTE | 2021-07-15 17:48 | ED General ---
General Chief Complaint: Neuro-Stroke Like Symptoms Stated Complaint: DIZZINESS/BACK PAIN/BILAT LEG PAIN Nursing Triage Note: ARRIVED VIA AMB TO ROOM 08 FROM [facility]. STATES AT APPX 1300 HE STARTED HAVING BLURRED VISION, TROUBLE WALKING, AND FEELING DIZZY. Source of Information: Patient, Spouse Exam Limitations: No Limitations (PATRICIA RYAN) History of Present Illness Date Seen by Provider: Jul 15, 2021 Time Seen by Provider: 16:30 Initial Comments Patient to the ER by private conveyance with his spouse and chief complaint that he is concerned he might be having a stroke because he had a sudden onset over a few hours of weakness feeling like his legs are going to give out from underneath him, lightheadedness like he might pass out, feeling cold. His remarks that he had some slurred speech earlier. He is not having any facial asymmetry according to his or himself. No unilateral weakness. He does have a history of stroke. He has a history of pulmonary embolism secondary to severe pneumonia as well as a Vignesh filter. He is on Plavix after his stroke as well as sotalol, metoprolol and Depakote. He is not on a blood thinner. He does not feel short of breath nor is he having significant chest pain. Most of his pain is in his low back. He denies a significant history of back pain or any work-up or surgery for back pain. No sore throat, cough. He has had 2 doses of Covid vaccination as well as an influenza vaccine and a shingles vaccine this year. Primary care through Dr. Boston. He remarks he has been around people at [employer] yesterday and today who were sick. (PATRICIA RYAN) Allergies and Home Medications Allergies Coded Allergies: KRIS Inhibitors (Unverified Allergy, Severe, FACIAL SWELLING, 05/20/13) haloperidol (Verified Allergy, Severe, 10/13/13) phenazopyridine HCl (Unverified Allergy, Severe, FACIAL SWELLING, 05/20/13) Patient Home Medication List Home Medication List Reviewed: Yes (PATRICIA RYAN) Albuterol Sulfate (Proair Hfa) 1 Puff Puff, 2 PUFF IH PRN, (Reported) Entered as Reported by: ALIN NUNEZ on 02/22/21 0803 Aripiprazole (Aripiprazole) 5 Mg Tablet, 5 MG PO HS, (Reported) Entered as Reported by: RITIKA SAMPSON on 09/25/202129 Ascorbic Acid (Vitamin C) 1,000 Mg Tablet, 1,000 MG PO BID, (Reported) Entered as Reported by: DARREL SHEPHERD on 09/26/20 143 Aspirin (Aspirin) 81 Mg Tab.chew, 81 MG PO HS, (Reported) Entered as Reported by: DARREL SHEPHERD on 09/26/20 143 Clopidogrel Bisulfate (Clopidogrel) 75 Mg Tablet, 75 MG PO DAILY, (Reported) Entered as Reported by: DARREL SHEPHERD on 09/26/20 143 Divalproex Sodium (Divalproex Sodium ER) 250 Mg Tab.er.24h, 250 MG PO BID, (Reported) Entered as Reported by: DARREL SHEPHERD on 09/26/20 143 Fluoxetine HCl (Fluoxetine HCl) 40 Mg Capsule, 40 MG PO DAILY, (Reported) Entered as Reported by: RITIKA SAMPSON on 09/25/202129 Fluticasone/Umeclidin/Vilanter (Trelegy Ellipta 100-62.5-25) 1 Each Blst.w.dev, 1 EACH IH DAILY, (Reported) Entered as Reported by: ALIN NUNEZ on 02/22/21 0803 Ipratropium/Albuterol Sulfate (Iprat-Albut 0.5-3(2.5) mg/3 ml) 3 Ml Ampul.neb, 3 ML IH Q6H PRN for SHORTNESS OF BREATH Prescribed by: LEONORA HUBBARD on 11/05/20 1511 Mirtazapine (Remeron) 30 Mg Tablet, 30 MG PO HS, (Reported) Entered as Reported by: RITIKA SAMPSON on 09/25/202137 Multivit-Min/FA/Lycopene/Lut (Centrum Silver Tablet) 1 Each Tablet, 1 EACH PO DAILY, (Reported) Entered as Reported by: RITIKA SAMPSON on 09/25/202137 [place]-3S/Dha/Epa/Fish Oil (Fish Oil 1,200 mg Softgel) 1 Each Capsule, 1 EACH PO BID, (Reported) Entered as Reported by: DARREL SHEPHERD on 10/26/20 1344 Pantoprazole Sodium (Protonix) 40 Mg Tablet.dr, 40 MG PO DAILY, (Reported) Entered as Reported by: RITIKA SAMPSON on 09/25/202137 Rosuvastatin Calcium (Crestor) 5 Mg Tablet, 5 MG PO HS, (Reported) Entered as Reported by: RITIKA SAMPSON on 09/25/202137 Sotalol HCl (Betapace AF) 80 Mg Tablet, 80 MG PO BID, (Reported) Entered as Reported by: DARREL SHEPHERD on 10/26/20 134 Trazodone HCl (Trazodone HCl) 50 Mg Tablet, 50 MG PO HS, (Reported) Entered as Reported by: RITIKA SAMPSON on 09/25/202137 Review of Systems Review of Systems Constitutional: see HPI; No chills, No diaphoresis; malaise, weakness EENTM: No ear discharge, No ear pain Respiratory: cough; No phlegm; short of breath; No wheezing Cardiovascular: No chest pain, No Hx of Intervention, No palpitations, No syncope, No vascular heart diseas Gastrointestinal: No abdominal pain, No constipation; loss of appetite, nausea; No vomiting Genitourinary: No discharge, No dysuria Musculoskeletal: back pain; No joint pain Skin: No change in color, No dryness, No pruritus, No rash Psychiatric/Neurological: See HPI, Headache; Denies Numbness, Denies Paresthesia (PATRICIA RYAN) All Other Systems Reviewed Negative Unless Noted: Yes (PATRICIA RYAN) Past Fvajhkh-Tqdxfz-Ceybvq Hx Patient Social History Tobacco Use?: No Use of E-Cig and/or Vaping dev: No Substance use?: No (PATRICIA RYAN) Immunizations Up To Date Tetanus Booster (TDap): Unknown (PATRICIA RYAN) Past Medical History Surgeries: Yes Gallbladder, Orthopedic Respiratory: Yes Sleep Apnea, COPD Currently Using CPAP: Yes Cardiac: No Atrial Fibrillation, High Cholesterol, Hypertension Neurological: Yes Stroke Sexually Transmitted Disease: No HIV/AIDS: No Gastrointestinal: Yes Gastroesophageal Reflux, Polyps Musculoskeletal: Yes Fractures Endocrine: No Loss of Vision: Denies Hearing Impairment: Denies Cancer: No Psychosocial: Yes (substance abuse) Suicide Attempts, Depression Integumentary: Yes Eczema Blood Disorders: No Adverse Reaction/Blood Tranf: No (PATRICIA RYAN) Surgery/Hospitalization HX: LOOP RECORDER 06/19/21 (JAMEY ESCOBAR DO) Family Medical History Cancer (PATRICIA RYAN) Physical Exam-Suspected Sepsis Physical Exam Vital Signs Vital Signs - First Documented 07/15/21 16:18 Temp 38.3 Pulse 94 Resp 16 B/P (MAP) 165/113 (130) Pulse Ox 96 O2 Delivery Room Air (JAMEY ESCOBAR DO) Vital Signs Capillary Refill : Less Than 3 Seconds (PATRICIA RYAN) Blood Pressure Mean: 130 Height, Weight, BMI Height: 6'3.00" Weight: 200lbs. 6.4oz. [id number]; 29.00 BMI Method:Estimated General Appearance: Anxious, Chronically ill, Moderate Distress Eyes: Bilateral Eye Normal Inspection, Bilateral Eye PERRL, Bilateral Eye EOMI HEENT: PERRL/EOMI, TMs Normal, Normal ENT Inspection; No Moist Mucous Membranes, No Pharyngeal Erythema, No Tonsillar Exudate, No Tonsillar Enlargement Neck: Full Range of Motion, Normal Inspection Respiratory: Lungs Clear, Normal Breath Sounds, No Accessory Muscle Use, No Respiratory Distress (Oxygen saturations are mid upper 90s on room air.) Cardiovascular: Regular Rate, Rhythm, Normal Peripheral Pulses, Other (Trace bipedal edema) Gastrointestinal: Normal Bowel Sounds, Non Tender, Soft Extremity: Normal Capillary Refill, Normal Inspection, Non Tender, Pedal Edema (Trace) Neurologic/Psychiatric: Alert, Oriented x3, No Motor/Sensory Deficits Skin: normal color, warm/dry (PATRICIA RYAN) Focused Exam Sepsis Stage: Sepsis Possible Source: Unknown Lactate Level 07/15/21 16:42: Lactic Acid Level 1.95 (JAMEY ESCOBAR DO) Time of Focused Exam: 18:25 Respiratory: Lungs Clear, Normal Breath Sounds, No Accessory Muscle Use, No Respiratory Distress Cardiovascular: Regular Rate, Rhythm, No Edema, No Murmur, Normal Peripheral Pulses Capillary Refill: Less Than 3 Seconds Skin: normal color, warm/dry Lactic Acid Level Laboratory Tests Test 07/15/21 16:42 Lactic Acid Level 1.95 MMOL/L (0.50-2.00) (JAMEY ESCOBAR DO) Within 3hrs of presentation: Admin fluids, Admin ABX, Blood cultures prior to ABX's, Focus exam, Lactate level (JAMEY ESCOBAR DO) Progress/Results/Core Measures Suspected Sepsis SIRS Temperature: Pulse: 94 Respiratory Rate: 16 Laboratory Tests 07/15/21 16:25: White Blood Count 16.3H Blood Pressure 165 /113 Mean: 130 07/15/21 16:42: Lactic Acid Level 1.95 Laboratory Tests 07/15/21 16:25: Creatinine 0.90, INR Comment 0.9, Platelet Count 231, Total Bilirubin 0.3 (PATRICIA RYAN) Results/Orders Lab Results Laboratory Tests Test 07/15/21 16:25 07/15/21 16:42 07/15/21 18:05 Range/Units White Blood Count 16.3 H 4.3-11.0 10^3/uL Red Blood Count 4.68 4.30-5.52 10^6/uL Hemoglobin 13.3 13.3-17.7 g/dL Hematocrit 40 40-54 % Mean Corpuscular Volume 85 80-99 fL Mean Corpuscular Hemoglobin 28 25-34 pg Mean Corpuscular Hemoglobin Concent 33 32-36 g/dL Red Cell Distribution Width 14.0 10.0-14.5 % Platelet Count 231 130-400 10^3/uL Mean Platelet Volume 10.2 9.0-12.2 fL Immature Granulocyte % (Auto) 1 % Neutrophils (%) (Auto) 79 H 42-75 % Lymphocytes (%) (Auto) 10 L 12-44 % Monocytes (%) (Auto) 7 0-12 % Eosinophils (%) (Auto) 2 0-10 % Basophils (%) (Auto) 0 0-10 % Neutrophils # (Auto) 12.9 H 1.8-7.8 10^3/uL Lymphocytes # (Auto) 1.7 1.0-4.0 10^3/uL Monocytes # (Auto) 1.2 H 0.0-1.0 10^3/uL Eosinophils # (Auto) 0.4 H 0.0-0.3 10^3/uL Basophils # (Auto) 0.1 0.0-0.1 10^3/uL Immature Granulocyte # (Auto) 0.1 0.0-0.1 10^3/uL Neutrophils % (Manual) 81 % Lymphocytes % (Manual) 13 % Monocytes % (Manual) 14 % Eosinophils % (Manual) 2 % Blood Morphology Comment NORMAL Prothrombin Time 12.4 12.2-14.7 SEC INR Comment 0.9 0.8-1.4 Activated Partial Thromboplast Time 34 24-35 SEC Sodium Level 137 135-145 MMOL/L Potassium Level 4.1 3.6-5.0 MMOL/L Chloride Level 101 98-107 MMOL/L Carbon Dioxide Level 21 21-32 MMOL/L Anion Gap 15 H 5-14 MMOL/L Blood Urea Nitrogen 12 7-18 MG/DL Creatinine 0.90 0.60-1.30 MG/DL Estimat Glomerular Filtration Rate 87 BUN/Creatinine Ratio 13 Glucose Level 97 70-105 MG/DL Calcium Level 9.7 8.5-10.1 MG/DL Corrected Calcium 9.3 8.5-10.1 MG/DL Total Bilirubin 0.3 0.1-1.0 MG/DL Aspartate Amino Transf (AST/SGOT) 28 5-34 U/L Alanine Aminotransferase (ALT/SGPT) 23 0-55 U/L Alkaline Phosphatase 118 40-136 U/L Total Protein 7.6 6.4-8.2 GM/DL Albumin 4.5 3.2-4.5 GM/DL Lactic Acid Level 1.95 0.50-2.00 MMOL/L Influenza Type A (RT-PCR) Not Detected Not Detecte Influenza Type B (RT-PCR) Not Detected Not Detecte SARS-CoV-2 RNA (RT-PCR) Not Detected Not Detecte Urine Color YELLOW Urine Clarity CLEAR Urine pH 7.5 5-9 Urine Specific [place] 1.020 1.016-1.022 Urine Protein NEGATIVE NEGATIVE Urine Glucose (UA) NEGATIVE NEGATIVE Urine Ketones TRACE H NEGATIVE Urine Nitrite NEGATIVE NEGATIVE Urine Bilirubin NEGATIVE NEGATIVE Urine Urobilinogen 0.2 < = 1.0 MG/DL Urine Leukocyte Esterase NEGATIVE NEGATIVE Urine RBC (Auto) NEGATIVE NEGATIVE Urine RBC NONE /HPF Urine WBC NONE /HPF Urine Squamous Epithelial Cells NONE /HPF Urine Renal Epithelial Cells NONE /HPF Urine Crystals NONE /LPF Urine Bacteria NEGATIVE /HPF Urine Casts NONE /LPF Urine Mucus NEGATIVE /LPF Urine Culture Indicated NO (JAMEY ESCOBAR DO) My Orders Orders - JAMEY ESCOBAR DO Procalcitonin (Pct) (07/15/21 18:29) Cefepime Injection (Maxipime Injection) (07/15/21 18:30) Vancomycin Injection (Vancomycin Injecti (07/15/21 18:30) Tick Panel With Lyme Eia (11/22/21 18:32) (JAMEY ESCOBAR DO) Medications Given in ED Current Medications Medications Dose Ordered Sig/Eugenie Route Start Time Stop Time Status Last Admin Dose Admin Acetaminophen 1,000 mg ONCE PRN PO 07/15/21 16:45 07/15/21 16:59 DC 07/15/21 16:58 1,000 MG Cefepime HCl 1000 mg/Sodium Chloride 50 ml @ 100 mls/hr ONCE ONCE IV 07/15/21 16:45 07/15/21 17:14 DC 07/15/21 16:59 100 MLS/HR Lactated Ringer's 1,000 ml @ 0 mls/hr Q0M ONCE IV 07/15/21 16:45 07/15/21 16:46 DC 07/15/21 16:59 1,000 MLS/HR Lactated Ringer's 1,000 ml @ 0 mls/hr Q0M ONCE IV 07/15/21 16:45 07/15/21 16:46 DC 07/15/21 18:29 1,000 MLS/HR (JAMEY ESCOBAR DO) Vital Signs/I&O 07/15/21 07/15/21 16:18 18:32 Temp 38.3 36.8 Pulse 94 Resp 16 B/P (MAP) 165/113 (130) Pulse Ox 96 O2 Delivery Room Air (JAMEY ESCOBAR DO) Vital Signs/I&O Capillary Refill : Less Than 3 Seconds (PATRICIA RYAN) Blood Pressure Mean: 130 Progress Note : Time: 17:46 Progress Note The patient was unpleasantly surprised to find out that he has a fever. He has not taken any antipyretics or pain medicines today. Plan to swab him for Covid, influenza get a chest x-ray and septic work-up and give him 2 L of fluid which would be greater than 20 mL/kg. (PATRICIA RYAN) Progress Note : Progress Note 1800--ASSUMED CARE FROM [facility]END[facility]. PT WISHES TO BE A FULL CODE. (JAMEY ESCOBAR DO) Diagnostic Imaging Diagonstic Imaging: Xray Plain Films/CT/US/NM/MRI: chest Comments [facility]. [place], [place] NAME: ODALIS RODRIGUEZ [facility] REC#: [id number] PT STATUS: REG ER : 1965 PHYSICIAN: PATRICIA RYAN MD ADMIT DATE: 07/15/21/ER Draft Date of Exam:07/15/21 CHEST 1 VIEW, AP/PA ONLY EXAMINATION: Chest 1 view HISTORY: sepsis COMPARISON: 11/03/2020 FINDINGS: Lung volumes are small. There is no edema or pneumonia. No pleural effusion or pneumothorax. Heart size is normal. Loop recorder projects over the chest. IMPRESSION: 1. Clear lungs. Dictated on workstation # [id number] Dict: 07/15/21 173 Trans: 07/15/21 173 [facility] [id number] Interpreted by: PAT MORRISSEY MD Electronically signed by: Reviewed: Reviewed by Me (PATRICIA RYAN) Transfer of Care Transfer of Care Time: 18:00 Care transferred to: [place] (PATRICIA RYAN) Departure Communication (Admissions) 1830--SPOKE WITH DR. BOSTON, ACCEPTS PT FOR ADMIT. (JAMEY ESCOBAR DO) Impression Primary Impression: Sepsis Qualified Codes: A41.9 - Sepsis, unspecified organism Additional Impressions: Fever of unknown origin Generalized weakness Disposition: ADMITTED INPATIENT Condition: Stable Admissions Decision to Admit Reason: Admit from ER (General) Decision to Admit/Date: Jul 15, 2021 Time/Decision to Admit Time: 18:30 (JAMEY ESCOBAR DO) Departure-Patient Inst. Referrals: SHELDON BOSTON MD (PCP/Family) Primary Care Physician PATRICIA RYAN Jul 15, 2021 17:48 JAMEY ESCOBAR DO Jul 15, 2021 18:43
[2021-07-15] MEDS ORDERED: HYDROcodone/APAP 5 MG/325 MG (LORTAB) TAB PO ONE (18:15)
[2021-07-15 18:17] LABS: BILIRUBIN,URINE NEGATIVE (NEGATIVE); CLARITY,URINE CLEAR; COLOR,URINE YELLOW; GLUCOSE, URINE (UA) NEGATIVE (NEGATIVE); KETONES,URINE TRACE (NEGATIVE); LEUKOCYTE ESTERASE ,URINE NEGATIVE (NEGATIVE); NITRITE,URINE NEGATIVE (NEGATIVE); PH,URINE 7.5 (5-9); PROTEIN,URINE NEGATIVE (NEGATIVE)
[2021-07-15 18:19] LABS: BACTERIA,URINE NEGATIVE /HPF
[2021-07-15] MEDS ORDERED: VANCOMYCIN INJECTION 1,000 MG in NS (IVPB) 250 ML IV SCH (18:30)
[2021-07-15 19:30] VITALS: BP 153/87
[2021-07-15] MEDS ORDERED: AMLO-251 PO (20:49)
[2021-07-15] MEDS ORDERED: GEMF600T88 PO (20:49)
[2021-07-15] MEDS ORDERED: LOSA50TA63 PO (21:29)
[2021-07-15] MEDS ORDERED: ONDANSETRON 4 MG/2 ML (SDV) Z0FRAN IVP PRN (22:15)
[2021-07-15] MEDS ORDERED: IBUPROFEN 800 MG (MOTRIN) TAB PO PRN (22:15)
[2021-07-15] MEDS ORDERED: GEMFIBROZIL 600 MG (LOPID) TAB PO SCH (22:25)
[2021-07-15] MEDS ORDERED: ROSUVASTATIN 5 MG (CRESTOR) TABLET PO SCH (22:26)
[2021-07-15] MEDS: SOTALOL 80 MG (BETAPACE) TAB PO SCH (22:34)
[2021-07-15] MEDS: DIVALPROEX EXT RELEASE 250 MG (DEPAKOTE ER) TAB PO SCH (22:35)
[2021-07-15] MEDS: ASPIRIN 81 MG CHEW (CHILDREN'S ASA) PO SCH (22:36)
[2021-07-15] MEDS: traZODone 50 MG (DESYREL) TAB PO SCH (22:36)
[2021-07-15] MEDS: LOSARTAN 50 MG (COZAAR) TAB PO SCH (22:36)
[2021-07-15] MEDS: MIRTAZAPINE 15 MG (REMERON) TAB PO SCH (22:47)
[2021-07-15] MEDS: LACTATED RINGERS 1,000 ML IV SCH (23:39)
[2021-07-15] MEDS: CEFEPIME 1,000 MG/NS 50 ML IVPB IV SCH ×2 (23:55)
[2021-07-16] VITALS (7 sets, daily range): BP systolic 107–153; BP diastolic 75–95
[2021-07-16] MEDS: LACTATED RINGERS 1,000 ML IV SCH ×4 (02:24→21:30)
[2021-07-16 05:13] LABS: BASOPHILS # (AUTO) 0.1 10^3/uL (0.0-0.1); BASOPHILS % (AUTO) 1 % (0-10); EOSINOPHILS # (AUTO) 0.2 10^3/uL (0.0-0.3); EOSINOPHILS % (AUTO) 2 % (0-10); HEMATOCRIT 36 % (40-54); HEMOGLOBIN 12.3 g/dL (13.3-17.7); LYMPHOCYTES # (AUTO) 1.8 10^3/uL (1.0-4.0); LYMPHOCYTES % (AUTO) 16 % (12-44); MEAN CORPUSCULAR HEMOGLOBIN 29 pg (25-34); MEAN CORPUSCULAR HGB CONC 34 g/dL (32-36); MEAN CORPUSCULAR VOLUME 85 fL (80-99); MEAN PLATELET VOLUME 9.4 fL (9.0-12.2); MONOCYTES # (AUTO) 0.8 10^3/uL (0.0-1.0); MONOCYTES % (AUTO) 7 % (0-12); NEUTROPHILS # (AUTO) 8.4 10^3/uL (1.8-7.8); NEUTROPHILS % (AUTO) 75 % (42-75); PLATELET COUNT 186 10^3/uL (130-400); WHITE BLOOD COUNT 11.3 10^3/uL (4.3-11.0)
[2021-07-16 05:23] LABS: ALBUMIN 3.6 GM/DL (3.2-4.5)
[2021-07-16 05:24] LABS: POTASSIUM 3.8 MMOL/L (3.6-5.0)
[2021-07-16 05:25] LABS: CALCIUM 8.8 MG/DL (8.5-10.1)
[2021-07-16 05:28] LABS: BILIRUBIN,TOTAL 0.6 MG/DL (0.1-1.0)
[2021-07-16 05:30] LABS: CREATININE SERUM 0.78 MG/DL (0.60-1.30)
[2021-07-16] MEDS ORDERED: VANCOMYCIN 1500 MG/NS 500 ML IVPB IV SCH ×2 (06:00)
[2021-07-16] MEDS: CEFEPIME 1,000 MG/NS 50 ML IVPB IV SCH ×4 (06:06→12:22)
[2021-07-16] MEDS ORDERED: NS IV 500 ML 500 ML ONE (06:50)
--- NOTE | 2021-07-16 07:00 | Diagnostic Imaging Report ---
INDICATION: Follow-up sepsis, fever EXAMINATION: Chest 07/16/2021 COMPARISON: 07/15/2021 FINDINGS: There is a vague airspace opacity in the periphery of the lung bases likely atelectasis with early infiltrate not excluded. Pulmonary vasculature slightly congested. Heart normal. No pneumothorax. IMPRESSION: 1. Vague peripheral atelectasis versus infiltrates at the lung bases. 2. Pulmonary vascular congestion. Dictated by: Dictated on workstation # [id number]
[2021-07-16] MEDS: SOTALOL 80 MG (BETAPACE) TAB PO SCH ×2 (09:39→21:30)
[2021-07-16] MEDS: DIVALPROEX EXT RELEASE 250 MG (DEPAKOTE ER) TAB PO SCH ×2 (09:39→21:30)
[2021-07-16] MEDS: LOSARTAN 50 MG (COZAAR) TAB PO SCH (09:39)
[2021-07-16] MEDS ORDERED: CETI10TA17 PO (11:07)
[2021-07-16] MEDS ORDERED: SOTA80TA23 PO (11:07)
[2021-07-16] MEDS ORDERED: ROSU10TA28 PO (11:07)
[2021-07-16] MEDS ORDERED: ARIP2TAB20 PO (11:11)
[2021-07-16] MEDS ORDERED: SOTA80TA22 PO (11:14)
--- NOTE | 2021-07-16 14:19 | History & Physical ---
MYRIAM KRAFT MD 07/16/21 1419: HPI History of Present Illness: 56 year old male with history of depression, hypertension, prior CVA with residual dysarthria and RUE weakness, PE s/p IVC filter, prior admission for fever of unknown origin presented 07/16 from home for acute onset blurry vision, dizziness, and difficulty walking. Patient reports that he was watching television when he noticed blurry vision in both eyes and dizziness, making it difficult to stand. He states he just "did not feel right in the head." He had associated chills. He waited for his to come home, then ultimately decided to go to urgent care. He was then directed to the ED for further care. In the ED, noted to be febrile to 38.3 with leukocytosis. He was given 2 L fluids, vancomycin and cefepime and admitted. Regarding recent PMH, patient had admission 10/2020 for fever of unknown origin and hypoxic respiratory failure, discharged on oxygen. His fevers resolved after that admission. He had colonoscopy 02/2021 showing polyps and internal hemorrhoids, after which he had rectal bleeding. This led to discontinuation of his plavix 2 weeks ago. He also recently had loop recorder placed by cardiology and states he has a history of atrial fibrillation following his CVA years ago, but denies recent palpitations. Source: patient, family Exam Limitations: no limitations Date seen by provider: Jul 16, 2021 Time Seen by Provider: 07:21 Attending Physician Sheldon Rowell MD PCP Sheldon Rowell MD Consult Date of Admission Jul 15, 2021 at 18:30 Home Medications Home Medications Reviewed patient Home Medication Reconciliation performed by pharmacy medication reconciliations certification technician and/or nursing. Patients Allergies have been reviewed. 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, with chronic weakness HTN HLD Depression Anxiety Obstructive sleep apnea on bipap SurgHx: Ankle/foot repair after fall from a roof Family Medical History Significant Family History: Cancer Review of Systems ([facility]) Constitutional: chills, dizziness, fever EENTM: blurred vision Respiratory: No cough, No dyspnea on exertion, No short of breath Cardiovascular: No chest pain, No palpitations Gastrointestinal: No abdominal pain, No constipation, No diarrhea, No vomiting Genitourinary: no symptoms reported Musculoskeletal: muscle weakness Reviewed Test Results Reviewed Test Results Lab CBC: WBC 16.3 CMP: WNL Procal 0.02 Lactate 1.95 UA WNL CXR WNL Physical Exam-([facility]) Physical Exam Vital Signs VS - Last 72 Hours, by Label 07/15/21 07/15/21 07/15/21 07/15/21 16:18 18:32 19:19 19:30 Temp 38.3 36.8 37.5 Pulse 94 78 87 Resp 16 20 20 B/P (MAP) 165/113 (130) 134/99 153/87 (109) Pulse Ox 96 94 95 O2 Delivery Room Air Room Air Room Air 07/15/21 07/15/21 07/15/21 07/15/21 19:35 21:48 22:35 23:53 Temp 37.6 37.9 Pulse 92 Pulse Ox 95 O2 Delivery Room Air 07/16/21 07/16/21 07/16/21 07/16/21 00:00 00:41 01:00 04:19 Temp 37.9 37.5 36.4 Pulse 86 83 73 Resp 19 19 B/P (MAP) 137/91 (106) 107/75 (86) Pulse Ox 93 93 O2 Delivery Room Air Room Air 07/16/21 07/16/21 07/16/21 07/16/21 07:00 08:00 11:58 13:00 Temp 36.4 36.3 Pulse 69 70 66 66 Resp 18 20 B/P (MAP) 136/90 (105) 144/91 (108) Pulse Ox 94 93 O2 Delivery Room Air Room Air Capillary Refill : Less Than 3 Seconds General Appearance: WD/WN, no apparent distress Eyes: Bilateral Eye PERRL, Bilateral Eye EOMI HEENT: PERRL/EOMI, pharynx normal Neck: non-tender, full range of motion, supple, normal inspection, other (No nuchal rigidity) Respiratory: chest non-tender, lungs clear, normal breath sounds Cardiovascular: normal peripheral pulses, no edema Gastrointestinal: normal bowel sounds, non tender, soft Neurologic/Psychiatric: chemical maker II-XII nml as tested, alert, oriented x 3, facial droop (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 No meningismus or clear infectious findings on exam. S/p fluid resuscitation with 2 L, receiving vancomycin and cefepime. Suspect viral etiology. -De-escalate to CTX for 5 day course -Tick panel pending Qualifiers: Qualified Codes: A41.9 - Sepsis, unspecified organism (2) Generalized weakness Status: Acute Assessment & Plan: History of CVA in 2014 now presented with blurred vision, dizziness, difficulty walking and lower extremity weakness concerning for possible CVA. Outside of window of tenecteplase, will proceed with MRI brain to evaluate. -MRI brain w/o to evaluate for CVA (3) History of atrial fibrillation Assessment & Plan: Reports history of atrial fibrillation after stroke in 2014, on sotalol and antiplatelets but no anticoagulation. Gpovi1Sxaa elevated, but given recent GI bleeding, will defer anticoagulation to cardiology in the outp atient setting. (4) Depression Status: Chronic Assessment & Plan: Continue home medications. SHELDON ROWELL MD 07/16/21 1543: Home Medications Allergies Coded Allergies: KRIS Inhibitors (Unverified Allergy, Severe, FACIAL SWELLING, 05/20/13) haloperidol (Verified Allergy, Severe, 10/13/13) phenazopyridine HCl (Unverified Allergy, Severe, FACIAL SWELLING, 05/20/13) Supervisory-Addendum Brief Supervisory Addendum I personally have seen and evaluated the patient and agree with documentation of assessment and plan by PGY3 Dennis Kraft MD. MYRIAM KRAFT MD Jul 16, 2021 14:19 SHELDON ROWELL MD Jul 16, 2021 15:43
--- NOTE | 2021-07-16 17:20 | Diagnostic Imaging Report ---
Clinical Indication: Patient with stroke-like symptoms. Exam: MRI of the brain performed without IV contrast. Sequences include axial DWI, ADC map, coronal gradient echo, axial T2, axial FLAIR, axial T1, and sagittal T1. Comparison: MRI of the brain with and without contrast dated 11/04/2010. CT angiogram of the head and neck dated 08/16/2013. Findings: There is no evidence of acute cerebral infarct, intracranial hemorrhage, or gross mass effect. There is interval evolution of now chronic infarct involving the left frontal lobe, left basal ganglia, left insula. There is ex vacuo dilation of the left lateral ventricle. The brain parenchymal volume appears appropriate for patient's age. There is normal cardozo-white matter distinction. There is no significant midline shift or herniation. [place] vascular structures show no significant abnormality. There is no evidence of hydrocephalus. The basal cisterns are unremarkable. The skull, extracranial soft tissue, and orbits are unremarkable. There is consolidation of the frontal sinus and ethmoid sinus. There is mild to moderate mucosal thickening involving the right maxillary sinus and mild mucosal thickening involving the left maxillary sinus and sphenoid sinus. There is minimal fluid in the right mastoid air cells. Impression: 1: There is no evidence of acute intracranial process. 2: There is a moderate sized chronic cerebral infarct involving the left cerebral hemisphere in the left MCA distribution which has evolved compared to the prior CT angiogram. 3: Severe diffuse paranasal sinusitis. Dictated by: Dictated on workstation # [id number]
[2021-07-16] MEDS ORDERED: cefTRIAXone 2,000 MG in NS (IVPB) 50 ML IV SCH (18:00)
[2021-07-16] MEDS ORDERED: ROSUVASTATIN 10 MG (CRESTOR) TABLET PO SCH (21:00)
[2021-07-16] MEDS ORDERED: LOSARTAN 50 MG (COZAAR) TAB PO SCH (21:00)
[2021-07-16] MEDS: MIRTAZAPINE 15 MG (REMERON) TAB PO SCH (21:30)
[2021-07-16] MEDS: ASPIRIN 81 MG CHEW (CHILDREN'S ASA) PO SCH (21:30)
[2021-07-16] MEDS: traZODone 50 MG (DESYREL) TAB PO SCH (21:30)
[2021-07-17 03:56] VITALS: BP 117/70
[2021-07-17] MEDS: LACTATED RINGERS 1,000 ML IV SCH (04:14)
[2021-07-17] MEDS ORDERED: TROUGH ORDER-PHARMACY XX ONE (05:00)
[2021-07-17 06:09] LABS: BASOPHILS # (AUTO) 0.1 10^3/uL (0.0-0.1); BASOPHILS % (AUTO) 0 % (0-10); EOSINOPHILS # (AUTO) 0.4 10^3/uL (0.0-0.3); EOSINOPHILS % (AUTO) 4 % (0-10); HEMATOCRIT 37 % (40-54); HEMOGLOBIN 12.7 g/dL (13.3-17.7); LYMPHOCYTES # (AUTO) 2.3 10^3/uL (1.0-4.0); LYMPHOCYTES % (AUTO) 20 % (12-44); MEAN CORPUSCULAR HEMOGLOBIN 29 pg (25-34); MEAN CORPUSCULAR HGB CONC 34 g/dL (32-36); MEAN CORPUSCULAR VOLUME 84 fL (80-99); MEAN PLATELET VOLUME 10.4 fL (9.0-12.2); MONOCYTES # (AUTO) 0.9 10^3/uL (0.0-1.0); MONOCYTES % (AUTO) 8 % (0-12); NEUTROPHILS # (AUTO) 7.6 10^3/uL (1.8-7.8); NEUTROPHILS % (AUTO) 68 % (42-75); PLATELET COUNT 184 10^3/uL (130-400); WHITE BLOOD COUNT 11.2 10^3/uL (4.3-11.0)
[2021-07-17 06:18] LABS: ALBUMIN 3.6 GM/DL (3.2-4.5); POTASSIUM 3.5 MMOL/L (3.6-5.0)
[2021-07-17 06:19] LABS: CALCIUM 9.1 MG/DL (8.5-10.1)
[2021-07-17 06:21] LABS: TOTAL PROTEIN 6.3 GM/DL (6.4-8.2)
[2021-07-17 06:22] LABS: BILIRUBIN,TOTAL 0.3 MG/DL (0.1-1.0)
[2021-07-17 06:24] LABS: CREATININE SERUM 0.77 MG/DL (0.60-1.30)
[2021-07-17 06:35] LABS: VANCOMYCIN,TROUGH 7.2 UG/ML (10.0-20.0)
[2021-07-17 08:20] VITALS: BP 142/88
[2021-07-17] MEDS ORDERED: KCL 20 MEQ TAB (K-DUR) PO ONE (08:30)
[2021-07-17] MEDS: DIVALPROEX EXT RELEASE 250 MG (DEPAKOTE ER) TAB PO SCH (08:59)
[2021-07-17] MEDS: SOTALOL 80 MG (BETAPACE) TAB PO SCH (09:00)
[2021-07-17] MEDS ORDERED: AMOX-358 PO (11:50)
[2021-07-17 11:55] VITALS: BP 134/98
--- NOTE | 2021-07-17 12:10 | Discharge Summary ---
MYRIAM KRAFT MD 07/17/21 1204: Discharge Summary Hospital Course Problems Reviewed?: Yes Problems/Diagnosis: (1) Sepsis Status: Acute Assessment & Plan: Presented meeting SIRS criteria with fever, no focal exam findings or meningismus, and leukocytosis with infectious workup notable only for paranasal sinusitis on his MRI. On broad spectrum antibiotics while admitted,transitioned to augmentin for 5 day course at discharge. Qualifiers: Qualified Codes: A41.9 - Sepsis, unspecified organism (2) Generalized weakness Status: Acute Assessment & Plan: History of CVA in 2014 now presented with blurred vision, dizziness, difficulty walking and lower extremity weakness concerning for poss ible CVA. MRI brain obtained without acute findings. (3) History of atrial fibrillation Assessment & Plan: Reports history of atrial fibrillation after stroke in 2013, on sotalol and antiplatelets but no anticoagulation. [id number] elevated, but given recent GI bleeding, will defer anticoagulation to cardiology in the outpatient setting. (4) Depression Status: Chronic Assessment & Plan: Continued home medications. Hospital Course Date of Admission: Jul 15, 2021 at 18:30 Admission Diagnosis : Family Physician/Provider: Sheldon Rowell MD Date of Discharge: 07/17/21 Discharge Diagnosis: Sinusitis Hospital Course: 56 year old male with history of depression, hypertension, prior CVA with residual dysarthria and RUE weakness, PE s/p IVC filter, presented 07/16 from home for acute onset blurry vision, dizziness, and difficulty walking. In the ED, noted to be febrile to 38.3 with leukocytosis and admitted for sepsis with no clear source. Blood cultures obtained were negative at time of discharge. MRI brain obtained for workup of neurologic symptoms showed no new infarction, but was notable for severe paranasal sinus disease. This was presumed to be the etiology of his fever. At time of discharge, his neurologic symptoms had resolved and he was prescribed augmentin to complete 5 day course. Labs and Pending Lab Test: Laboratory Tests 07/17/21 05:43: White Blood Count 11.2H, Red Blood Count 4.44, Hemoglobin 12.7L, Hematocrit 37L, Mean Corpuscular Volume 84, Mean Corpuscular Hemoglobin 29, Mean Corpuscular Hemoglobin Concent 34, Red Cell Distribution Width 13.8, Platelet Count 184, Mean Platelet Volume 10.4, Immature Granulocyte % (Auto) 0, Neutrophils (%) (Auto) 68, Lymphocytes (%) (Auto) 20, Monocytes (%) (Auto) 8, Eosinophils (%) (Auto) 4, Basophils (%) (Auto) 0, Neutrophils # (Auto) 7.6, Lymphocytes # (Auto) 2.3, Monocytes # (Auto) 0.9, Eosinophils # (Auto) 0.4H, Basophils # (Auto) 0.1, Immature Granulocyte # (Auto) 0.0 07/17/21 06:04: Sodium Level 139, Potassium Level 3.5L, Chloride Level 105, Carbon Dioxide Level 22, Anion Gap 12, Blood Urea Nitrogen 8, Creatinine 0.77, Estimat Glomerular Filtration Rate 104, BUN/Creatinine Ratio 10, Glucose Level 100, Calcium Level 9.1, Corrected Calcium 9.4, Total Bilirubin 0.3, Aspartate Amino Transf (AST/SGOT) 24, Alanine Aminotransferase (ALT/SGPT) 27, Alkaline Phosphatase 96, Total Protein 6.3L, Albumin 3.6, Vancomycin Level Trough 7.2L Microbiology 07/15/21 Urine Culture - Final, Complete NO GROWTH 07/15/21 Blood Culture - Preliminary, Resulted No growth Home Meds Active Augmentin 875-125 Tablet (Amoxicillin/Potassium Clav) 1 Each Tablet 1 Each PO BID 3 Days Reported Betapace (Sotalol HCl) 80 Mg Tablet 80 Mg PO BID Aripiprazole 2 Mg Tablet 2 Mg PO HS Cetirizine HCl 10 Mg Tablet 10 Mg PO DAILY Rosuvastatin Calcium 10 Mg Tablet 10 Mg PO HS Losartan Potassium 50 Mg Tablet 50 Mg PO HS Amlodipine Besylate 10 Mg Tablet 10 Mg PO DAILY Trelegy Ellipta 100-62.5-25 (Fluticasone/Umeclidin/Vilanter) 1 Each Blst.w.dev 1 Each IH DAILY Proair Hfa (Albuterol Sulfate) 1 Puff Puff 2 Puff IH Q6H PRN Fish Oil 1,200 mg Softgel (Holly-3S/Dha/Epa/Fish Oil) 1 Each Capsule 1 Each PO BID Aspirin 81 Mg Tab.chew 81 Mg PO HS Vitamin C (Ascorbic Acid) 1,000 Mg Tablet 1,000 Mg PO BID Divalproex Sodium ER (Divalproex Sodium) 250 Mg Tab.er.24h 250 Mg PO BID Protonix (Pantoprazole Sodium) 40 Mg Tablet.dr 40 Mg PO DAILY Trazodone HCl 50 Mg Tablet 50 Mg PO HS Remeron (Mirtazapine) 30 Mg Tablet 30 Mg PO HS Centrum Silver Tablet (Multivit-Min/FA/Lycopene/Lut) 1 Each Tablet 1 Each PO DAILY Fluoxetine HCl 40 Mg Capsule 40 Mg PO DAILY Assessment/Pt DC Instructions Please follow up with PCP within the next 2 weeks Discharge Diet: No Restrictions Activity as Tolerated: Yes Discharge Physical Examination Allergies: Coded Allergies: KRIS Inhibitors (Unverified Allergy, Severe, FACIAL SWELLING, 05/20/13) haloperidol (Verified Allergy, Severe, 10/13/13) phenazopyridine HCl (Unverified Allergy, Severe, FACIAL SWELLING, 05/20/13) General Appearance: No Apparent Distress, WD/WN HEENT: PERRL/EOMI, TMs Normal Respiratory: Chest Non Tender, Lungs Clear, Normal Breath Sounds Cardiovascular: Regular Rate, Rhythm, No Edema, No Murmur Gastrointestinal: Normal Bowel Sounds Skin: Normal Color, Warm/Dry Neurologic/Psychiatric: Other (Persistent facial asymettry, mild dysarthria. Motor with 4/5 RUE strength, 4/5 RLE strength. ) SHELDON ROWELL MD 07/17/21 1249: Discharge Summary Discharge Physical Examination Allergies: Coded Allergies: KRIS Inhibitors (Unverified Allergy, Severe, FACIAL SWELLING, 05/20/13) haloperidol (Verified Allergy, Severe, 10/13/13) phenazopyridine HCl (Unverified Allergy, Severe, FACIAL SWELLING, 05/20/13) Supervisory-Addendum Brief Supervisory Addendum I personally saw and evaluated patient, agree with documentation and assessment and plan documented by [email or web address] Dennis Kraft MD. MYRIAM KRAFT MD Jul 17, 2021 12:04 SHELDON ROWELL MD Jul 17, 2021 12:49
[2021-07-17 13:00] VITALS: BP 134/98
== END 2021-07-17 13:17 | disposition home or self-care (01) | DRG 872 ==
LOC: EDUNIT# 16:14 → ER 16:16 → 4TH 18:30
PROVIDERS: ADMIT Family Medicine; ATTEND Family Medicine
DX: A41.9 Sepsis, unspecified organism (principal); J44.9 Chronic obstructive pulmonary disease, unspecified; I48.91 Unspecified atrial fibrillation; E78.00 Pure hypercholesterolemia, unspecified; I10 Essential (primary) hypertension; K21.9 Gastro-esophageal reflux disease without esophagitis; F32.A Depression, unspecified; F41.9 Anxiety disorder, unspecified; Z20.822 Contact with and (suspected) exposure to COVID-19; G47.33 Obstructive sleep apnea (adult) (pediatric); R53.1 Weakness; J32.9 Chronic sinusitis, unspecified; Z86.73 Personal history of transient ischemic attack (TIA), and cerebral infarction without residual deficits; Z86.711 Personal history of pulmonary embolism; Z79.82 Long term (current) use of aspirin; Z79.899 Other long term (current) drug therapy
CPT/HCPCS: 36415; 70551; 71045; 80053; 80202; 81000; 83605; 84145; 85007; 85025; 85027; 85610; 85730; 86618; 86666; 86668; 86757; 87040; 87088; 87636; 96361; 96365; 96375

== ENCOUNTER 2023-04-28 12:16 | Observation (INO) | payer MEDICARE, MEDICAID ==
[2023-04-28] VITALS (12 sets, daily range): BP systolic 122–157; BP diastolic 31–117
[~2023-04-28] VITALS: Ht 190.5 cm; Wt 82.5 kg
[~2023-04-28 12:16] MED LIST changes: +ALBU8.5H6 IH; +AMOX-358 PO; +ARIP2TAB20 PO; +CETI10TA17 PO; +GEMF600T88 PO; +ROSU10TA28 PO; -RT-ALBUINH IH; +SOTA80TA22 PO
[2023-04-28 12:41] LABS: BASOPHILS % (AUTO) 0 % (0-10); EOSINOPHILS # (AUTO) 0.1 10^3/uL (0.0-0.3); EOSINOPHILS % (AUTO) 1 % (0-10); HEMATOCRIT 44 % (40-54); HEMOGLOBIN 15.1 g/dL (13.3-17.7); LYMPHOCYTES # (AUTO) 1.1 10^3/uL (1.0-4.0); LYMPHOCYTES % (AUTO) 15 % (12-44); MEAN CORPUSCULAR HEMOGLOBIN 29 pg (25-34); MEAN CORPUSCULAR HGB CONC 34 g/dL (32-36); MEAN CORPUSCULAR VOLUME 85 fL (80-99); MEAN PLATELET VOLUME 10.3 fL (9.0-12.2); MONOCYTES # (AUTO) 0.5 10^3/uL (0.0-1.0); MONOCYTES % (AUTO) 6 % (0-12); NEUTROPHILS # (AUTO) 5.8 10^3/uL (1.8-7.8); NEUTROPHILS % (AUTO) 77 % (42-75); PLATELET COUNT 183 10^3/uL (130-400); WHITE BLOOD COUNT 7.6 10^3/uL (4.3-11.0)
[2023-04-28 12:45] LABS: INR 1.1 (0.8-1.4); PROTHROMBIN TIME PATIENT 13.9 SEC (12.2-14.7)
[2023-04-28 12:49] LABS: FIBRIN DEGRADATION PRODUCTS 1.04 UG/ML (0.00-0.49)
[2023-04-28 12:52] LABS: ALANINE AMINOTRANSFERASE 15 U/L (0-55); ALBUMIN 4.2 GM/DL (3.2-4.5); ALKALINE PHOSPHATASE 163 U/L (40-136); BILIRUBIN,TOTAL 0.8 MG/DL (0.1-1.0); BUN/CREATININE RATIO 9; CALCIUM 9.2 MG/DL (8.5-10.1); CARBON DIOXIDE 24 MMOL/L (21-32); CHLORIDE 101 MMOL/L (98-107); GFR ESTIMATED 77; GLUCOSE 156 MG/DL (70-105); POTASSIUM 3.6 MMOL/L (3.6-5.0); SODIUM 138 MMOL/L (135-145); TOTAL PROTEIN 7.2 GM/DL (6.4-8.2)
--- NOTE | 2023-04-28 13:37 | Diagnostic Imaging Report ---
CHEST 1 VIEW, AP/PA ONLY Indication: Altered mental status. Comparison: 07/16/2021 Findings: No focal airspace disease in the visualized lungs. No pleural effusion or pneumothorax. Normal cardiomediastinal silhouette. Impression: 1. No acute cardiopulmonary process by portable radiography. Dictated by: Dictated on workstation # [id number]
--- NOTE | 2023-04-28 13:37 | Diagnostic Imaging Report ---
CLINICAL INDICATIONS: Patient found on the floor. Patient is confused and cannot follow commands. Rule out stroke. EXAM: Axial CT scan of the brain performed without IV contrast. Auto Exposure Controls were utilized during the CT exam to meet ALARA standards for radiation dose reduction. COMPARISON: MRI of the brain without contrast dated 07/16/2021.. FINDINGS: There is no CT evidence of acute cerebral infarct, intracranial hemorrhage, brain herniation or midline shift. There is no dense vessel sign. There is stable moderate sized chronic cerebral infarct involving the left cerebral hemisphere in the left MCA distribution. There is no brain herniation, midline shift. There is no intraparenchymal hemorrhage. There is no hydrocephalus. Basal cisterns are unremarkable. Extracranial soft tissues, skull, and orbits are unremarkable. There are moderate to large amounts of consolidation and mucosal thickening involving ethmoid sinus and frontal sinus. There is small to moderate amount of mucosal thickening involving both maxillary sinuses and sphenoid sinus. There are chronic bony sinusitis changes with sclerosis and thickening involving all the paranasal sinuses. IMPRESSION: 1: Stable CT scan of the brain with no evidence of acute intracranial process. There is no dense vessel sign. 2: Stable chronic infarct involving left cerebral hemisphere. Results of this report discussed with Dr. Earlene Lopez via the telephone on 04/28/2023 at 1332 hours. Dictated by: Dictated on workstation # [id number]
[2023-04-28] MEDS ORDERED: IOHEXOL 350 MG/ML 100 ML (OMNIPAQUE 350) VIAL IV ONE (15:45)
[2023-04-28] MEDS ORDERED: NS 100 ML (IVPB) BAG IV ONE (15:45)
[2023-04-28] MEDS ORDERED: HOLD METFORMIN - RECEIVED CONTRAST 20 ML VIAL IV SCH (15:45)
--- NOTE | 2023-04-28 16:12 | ED General ---
General Chief Complaint: Altered Mental Status Stated Complaint: AMS Nursing Triage Note: PT ARRIVED PER EMS. PT WAS SEEN CARRYING IN [place], THEN 30MIN LATER FOUND ON FLOOR IN HOME. PT IS ALERT BUT IS NOT ABLE TO RECALL EVENTS OF DAY. UNABLE TO UNDERSTAND PAIN SCALE. BUT STATES HAS PAIN IN ABD. PT IS ABLE TO MOVE ALL EXT AT THIS X. Source of Information: Caregiver, EMS History of Present Illness Date Seen by Provider: Apr 28, 2023 Time Seen by Provider: 12:34 Initial Comments Patient is a 58-year-old male who presents to the emergency department by EMS after being found "down" in his home. Report initially given by EMS but I did speak with his "caregiver" Brenna. She states that neighbors saw Odilon going outside to get his groceries off of his front porch. She showed up about 20 minutes later to clean his house and check on him and fix him some food. When she got to the house the door was locked which she states was unusual. She let herself in and called for him, heard him making noise in the bedroom and found him wedged between the wall and the bed. She states his face was all red and he had been unable to get himself out from behind the bed and wall. He had been potentially stuck there for only about 20 minutes. She tells me that he is normally pretty able, he drives himself to the post office and to sabianist. He is able to take care of all of his own ADLs, she just cooks and cleans. She states that he is very good about taking his medications. He does not really talk much to people he does not know due to a stroke he had several years ago that affected his right side and his speech. But she states normally he is alert, oriented and has clear speech. She is unaware of any recent injuries or illnesses. She states he has a brother that was visiting over the weekend who just left yesterday. She states from when she had been appear earlier to see him that he was completely unlike himself. Timing/Duration: 1 Hour Severity: Moderate NIH Stroke Scale NIH : Select: Initial Level of Consciousness: 0=Alert Level of Consciousness-Questio: 2=Answer neither question LOC Commands: 1=Performs one task Gaze: 0=Normal Facial Movement (Facial Paresi: 0=Normal symmetrical mnt Motor Function-Arms Right: 0=No drift Motor Function-Arms Left: 0=No drift Motor Function-Legs Right: 0=No drift Motor Function-Legs Left: 0=No drift Extinction & Inattention: 0=No abnormality Allergies and Home Medications Allergies Coded Allergies: KRIS Inhibitors (Unverified Allergy, Severe, FACIAL SWELLING, 05/20/13) haloperidol (Verified Allergy, Severe, 10/13/13) phenazopyridine HCl (Unverified Allergy, Severe, FACIAL SWELLING, 05/20/13) Patient Home Medication List Home Medication List Reviewed: Yes Amlodipine Besylate (Amlodipine Besylate) 10 Mg Tablet, 10 MG PO HS, (Reported) Entered as Reported by: CARIE CEBALLOS on 07/15/212048 Last Action: Continued Aripiprazole (Aripiprazole) 5 Mg Tablet, 5 MG PO HS, (Reported) Entered as Reported by: DARREL SHEPHERD on 04/29/231215 Last Action: Converted Ascorbic Acid (Vitamin C) 1,000 Mg Tablet, 1,000 MG PO BID, (Reported) Entered as Reported by: DARREL SHEPHERD on 09/26/201430 Last Action: Converted Aspirin (Aspirin) 81 Mg Tab.chew, 81 MG PO HS, (Reported) Entered as Reported by: DARREL SHEPHERD on 09/26/201430 Last Action: Continued Cholecalciferol (Vitamin D3) (Vitamin D3) 50 Mcg (2000 Unit) Tablet, 50 MCG PO DAILY, (Reported) Entered as Reported by: DARREL SHEPHERD on 04/29/231215 Last Action: Converted Fluoxetine HCl (Fluoxetine HCl) 40 Mg Capsule, 40 MG PO DAILY, (Reported) Entered as Reported by: RITIKA SAMPSON on 09/25/202129 Last Action: Converted Fluoxetine HCl (Fluoxetine HCl) 20 Mg Capsule, 20 MG PO DAILY, (Reported) Entered as Reported by: DARREL SHEPHERD on 04/29/231215 Last Action: Continued Loratadine (Claritin) 10 Mg Tablet, 10 MG PO DAILY, (Reported) Entered as Reported by: DARREL SHEPHERD on 04/29/231215 Last Action: Continued Losartan Potassium (Losartan Potassium) 50 Mg Tablet, 50 MG PO DAILY, (Reported) Entered as Reported by: CARIE CEBALLOS on 07/15/212128 Last Action: Continued Mirtazapine (Mirtazapine) 45 Mg Tablet, 45 MG PO HS, (Reported) Entered as Reported by: DARREL SHEPHERD on 04/29/231215 Last Action: Converted Multivit-Min/FA/Lycopene/Lut (Centrum Silver Tablet) 1 Each Tablet, 1 EACH PO DAILY, (Reported) Entered as Reported by: RITIKA SAMPSON on 09/25/202137 Last Action: Converted [place]-3S/Dha/Epa/Fish Oil (Fish Oil 1,200 mg Softgel) 1 Each Capsule, 1 EACH PO BID, (Reported) Entered as Reported by: DARREL SHEPHERD on 10/26/20 1344 Last Action: Converted Pantoprazole Sodium (Pantoprazole Sodium) 40 Mg Tablet.dr, 40 MG PO DAILY, (Reported) Entered as Reported by: DARREL SHEPHERD on 04/29/231215 Last Action: Continued Prazosin HCl (Prazosin HCl) 2 Mg Capsule, 2 MG PO HS, (Reported) Entered as Reported by: DARREL SHEPHERD on 04/29/231215 Last Action: Converted Rosuvastatin Calcium (Rosuvastatin Calcium) 10 Mg Tablet, 10 MG PO HS, (Reported) Entered as Reported by: DARREL SHEPHERD on 07/16/21 1107 Last Action: Continued Sotalol HCl (Betapace) 80 Mg Tablet, 80 MG PO BID, (Reported) Entered as Reported by: DARREL SHEPHERD on 07/16/21 111 Last Action: Continued Trazodone HCl (Trazodone HCl) 50 Mg Tablet, 50-100 MG PO HS, (Reported) Entered as Reported by: RITIKA SAMPSON on 09/25/202137 Last Action: Continued Discontinued Medications Albuterol Sulfate (Ventolin Hfa) 1 Puff Puff, 2 PUFF IH Q6H PRN for SHORTNESS OF BREATH, (Reported) Discontinued Reason: No Longer Taking Entered as Reported by: ALIN NUNEZ on 02/22/21 0803 Last Action: Discontinued Amoxicillin/Potassium Clav (Augmentin 875-125 Tablet) 1 Each Tablet, 1 EACH PO BID Discontinued Reason: No Longer Taking Prescribed by: MYRIAM KRAFT on 07/17/21 1150 Last Action: Discontinued Aripiprazole (Aripiprazole) 2 Mg Tablet, 2 MG PO HS, (Reported) Discontinued Reason: No Longer Taking Entered as Reported by: DARREL SHEPHERD on 07/16/21 1111 Last Action: Discontinued Cetirizine HCl (Cetirizine HCl) 10 Mg Tablet, 10 MG PO DAILY, (Reported) Discontinued Reason: No Longer Taking Entered as Reported by: DARREL SHEPHERD on 07/16/21 1107 Last Action: Discontinued Divalproex Sodium (Divalproex Sodium ER) 250 Mg Tab.er.24h, 250 MG PO BID, (Reported) Discontinued Reason: No Longer Taking Entered as Reported by: DARREL SHEPHERD on 09/26/20 1431 Last Action: Discontinued Fluticasone/Umeclidin/Vilanter (Trelegy Ellipta 100-62.5-25) 1 Each Blst.w.dev, 1 EACH IH DAILY, (Reported) Discontinued Reason: No Longer Taking Entered as Reported by: ALIN NUNEZ on 02/22/21 0803 Last Action: Discontinued Mirtazapine (Remeron) 30 Mg Tablet, 30 MG PO HS, (Reported) Discontinued Reason: No Longer Taking Entered as Reported by: RITIKA SAMPSON on 09/25/202137 Last Action: Discontinued Pantoprazole Sodium (Protonix) 40 Mg Tablet.dr, 40 MG PO DAILY, (Reported) Discontinued Reason: Duplicate Order Entered as Reported by: RITIKA SAMPSON on 09/25/202137 Last Action: Discontinued Review of Systems Review of Systems Constitutional: see HPI unable to obtain reliable HPI/ROS from patient due to AMS/confusion Past Vunrdqr-Enwweo-Foiyum Hx Patient Social History Tobacco Use?: No Substance use?: No Alcohol Use?: No Pt feels they are or have been: No Immunizations Up To Date Tetanus Booster (TDap): Unknown First/Initial COVID19 Vaccinat: 03/20/21 Second COVID19 Vaccination Tacho: 03/20/21 Third COVID19 Vaccination Date: 03/20/21 Past Medical History Surgery/Hospitalization HX: LOOP RECORDER 06/19/21 Surgeries: Yes Gallbladder, Orthopedic Respiratory: Yes Sleep Apnea, COPD Currently Using CPAP: Yes Cardiac: No Atrial Fibrillation, High Cholesterol, Hypertension Neurological: Yes Stroke Sexually Transmitted Disease: No HIV/AIDS: No Gastrointestinal: Yes Gastroesophageal Reflux, Polyps Musculoskeletal: Yes Fractures Endocrine: No Loss of Vision: Denies Hearing Impairment: Denies Cancer: No Psychosocial: Yes (substance abuse) Suicide Attempts, Depression Integumentary: Yes Eczema Blood Disorders: No Adverse Reaction/Blood Tranf: No Family Medical History Cancer Physical Exam Vital Signs Vital Signs - First Documented 04/28/23 04/28/23 12:20 21:20 Temp 36.5 Pulse 88 Resp 10 B/P (MAP) 142/106 (118) Pulse Ox 95 O2 Delivery Room Air Capillary Refill : Less Than 3 Seconds Height, Weight, BMI Height: 6'3.00" Weight: 200lbs. 6.4oz. 90.319841gh; BMI Method:Estimated General Appearance: No Apparent Distress, WD/WN Eyes: Bilateral Eye Normal Inspection, Bilateral Eye PERRL, Bilateral Eye EOMI HEENT: PERRL/EOMI, TMs Normal, Moist Mucous Membranes Neck: Full Range of Motion, Non Tender Respiratory: Lungs Clear, Normal Breath Sounds, No Accessory Muscle Use, No Respiratory Distress Cardiovascular: Regular Rate, Rhythm Gastrointestinal: Non Tender, Soft Extremity: Normal Capillary Refill, Normal Inspection, Normal Range of Motion, Non Tender Neurologic/Psychiatric: Alert, No Motor/Sensory Deficits, Depressed Affect (FLAT), Disoriented Skin: Normal Color, Warm/Dry, Other (no evidence of bruising or ecchymoses) Progress/Results/Core Measures Suspected Sepsis SIRS Temperature: Pulse: 88 Respiratory Rate: 10 Laboratory Tests 04/28/23 12:25: White Blood Count 7.6 Blood Pressure 142 /106 Mean: 118 Laboratory Tests 04/28/23 12:25: Creatinine 1.10, INR Comment 1.1, Platelet Count 183, Total Bilirubin 0.8 Results/Orders Lab Results Laboratory Tests Test 04/28/23 12:25 04/28/23 12:34 Range/Units White Blood Count 7.6 4.3-11.0 10^3/uL Red Blood Count 5.21 4.30-5.52 10^6/uL Hemoglobin 15.1 13.3-17.7 g/dL Hematocrit 44 40-54 % Mean Corpuscular Volume 85 80-99 fL Mean Corpuscular Hemoglobin 29 25-34 pg Mean Corpuscular Hemoglobin Concent 34 32-36 g/dL Red Cell Distribution Width 14.3 10.0-14.5 % Platelet Count 183 130-400 10^3/uL Mean Platelet Volume 10.3 9.0-12.2 fL Immature Granulocyte % (Auto) 0 % Neutrophils (%) (Auto) 77 H 42-75 % Lymphocytes (%) (Auto) 15 12-44 % Monocytes (%) (Auto) 6 0-12 % Eosinophils (%) (Auto) 1 0-10 % Basophils (%) (Auto) 0 0-10 % Neutrophils # (Auto) 5.8 1.8-7.8 10^3/uL Lymphocytes # (Auto) 1.1 1.0-4.0 10^3/uL Monocytes # (Auto) 0.5 0.0-1.0 10^3/uL Eosinophils # (Auto) 0.1 0.0-0.3 10^3/uL Basophils # (Auto) 0.0 0.0-0.1 10^3/uL Immature Granulocyte # (Auto) 0.0 0.0-0.1 10^3/uL Prothrombin Time 13.9 12.2-14.7 SEC INR Comment 1.1 0.8-1.4 Activated Partial Thromboplast Time 29 24-35 SEC D-Dimer 1.04 H 0.00-0.49 UG/ML Sodium Level 138 135-145 MMOL/L Potassium Level 3.6 3.6-5.0 MMOL/L Chloride Level 101 98-107 MMOL/L Carbon Dioxide Level 24 21-32 MMOL/L Anion Gap 13 5-14 MMOL/L Blood Urea Nitrogen 10 7-18 MG/DL Creatinine 1.10 0.60-1.30 MG/DL Estimat Glomerular Filtration Rate 77 BUN/Creatinine Ratio 9 Glucose Level 156 H 70-105 MG/DL Calcium Level 9.2 8.5-10.1 MG/DL Corrected Calcium 9.0 8.5-10.1 MG/DL Total Bilirubin 0.8 0.1-1.0 MG/DL Aspartate Amino Transf (AST/SGOT) 21 5-34 U/L Alanine Aminotransferase (ALT/SGPT) 15 0-55 U/L Alkaline Phosphatase 163 H 40-136 U/L Troponin I < 0.028 <0.028 NG/ML Total Protein 7.2 6.4-8.2 GM/DL Albumin 4.2 3.2-4.5 GM/DL Salicylates Level < 5.0 L 5.0-20.0 MG/DL Acetaminophen Level < 10 L 10-30 UG/ML Valproic Acid (Depakene) Level < 2.0 L 50.0-100.0 UG/ML Serum Alcohol < 10 <10 MG/DL Glucometer 138 H 70-110 MG/DL My Orders Orders - KIARA HORNER MD Cbc With Automated Diff (04/28/23 12:35) Protime With Inr (04/28/23 12:35) Partial Thromboplastin Time (04/28/23 12:35) Comprehensive Metabolic Panel (04/28/23 12:35) Fibrin Degradation Products (04/28/23 12:35) Troponin I Asim (04/28/23 12:35) Chest 1 View, Ap/Pa Only (04/28/23 12:35) Ekg Tracing (04/28/23 12:35) Nothing By Mouth (04/28/23 Lunch) Accucheck Stat ONCE (04/28/23 12:35) Ed Iv/Invasive Line Start (04/28/23 12:35) Ed Iv/Invasive Line Start (04/28/23 12:35) Vital Signs Stroke Patient Q15M (04/28/23 12:35) Ct Head Wo-R/O Stroke (04/28/23 12:35) O2 (04/28/23 12:35) Monitor-Rhythm Ecg Trace Only (04/28/23 12:35) Dysphagia Screening Tool Q10MX1 (04/28/23 12:35) Post Thrombolytic Adminstratio (04/28/23 12:35) Lipid Panel (04/29/23 06:00) Ct Angio Head/Neck (04/28/23 15:29) Iohexol Injection (Omnipaque 350 Mg/Ml 1 (04/28/23 15:45) Received Contrast (Hold Metformin- Contr (04/28/23 15:45) Ns (Ivpb) 100 Ml (Sodium Chloride 0.9% 1 (04/28/23 15:45) Alcohol (04/28/23 17:45) Salicylate (04/28/23 17:45) Acetaminophen (04/28/23 17:45) Valproic Acid (04/28/23 17:46) Ed Admission (Communication) (04/28/23 18:16) Medications Given in ED Vital Signs/I&O 04/28/23 04/28/23 12:20 21:20 Temp 36.5 36.5 Pulse 88 89 Resp 10 16 B/P (MAP) 142/106 (118) 125/103 Pulse Ox 95 94 O2 Delivery Room Air Capillary Refill : Less Than 3 Seconds Blood Pressure Mean: 118 Point of Care Testing Finger Stick Blood Glucose: 138 Blood Glucose Action Taken: REPORTED TO DR Mclaughlin Progress Note : Time: 18:00 Progress Note Patient seen and evaluated by me. Evaluation today includes physical exam, "stroke protocol". Pertinent physical exam findings - thin elderly male, appears confused. VSS. HEENT exam normal. Heart is regular. Lungs clear. Abdomen soft. no obvious extremity injuries. Patient appears to have some left sided weakness (normal findings for him post stroke according to caregiver).. Patient has a difficult time following sequential commands. His responses to questions, I think are unreliable - he is saying "yes" and "no" to everything or "ok". DDx based in H&P - intoxication, head injury/bleed/concussion/post ictal state Labs independently reviewed and interpreted by me. CBC is normal, CMP is normal exccept for mildly elevated 156. Troponin undetectable. Coags normal. DDimer mildly elevated at 1.04. Tox all negative (aspirin, acetaminophen, etoh) and valproic acid undetectable. Urine is quite concentrated with 4+ketones, 3+ bili, 1+ protein and few bacteria. Chest xray unremarkable.CT head without contrast and CT angios negative. Patient remained altered throughout his stay i n the ED. As he lives alone and I had no clear etiology for his symptoms, I spoke with Dr Springer and admitted him for observation and monitoring. No concerning findings for head bleed, infection. ECG Initial ECG Impression Date: Apr 28, 2023 Initial ECG Impression Time: 12:42 Initial ECG Rate: 90 Initial ECG Rhythm: Normal Sinus Initial ECG Intervals: Normal Initial ECG Impression: Nonspecific Changes Diagnostic Imaging Diagonstic Imaging: Xray Plain Films/CT/US/NM/MRI: chest Comments [facility], [place] NAME: ODILON RODRIGUEZ [facility] REC#: [id number] PT STATUS: REG ER : 1965 PHYSICIAN: KIARA HORNER MD ADMIT DATE: 04/28/23/ER Signed Date of Exam:04/28/23 CHEST 1 VIEW, AP/PA ONLY CHEST 1 VIEW, AP/PA ONLY Indication: Altered mental status. Comparison: 07/16/2021 Findings: No focal airspace disease in the visualized lungs. No pleural effusion or pneumothorax. Normal cardiomediastinal silhouette. Impression: 1. No acute cardiopulmonary process by portable radiography. Dictated by: Dictated on workstation # [id number] Dict: 04/28/23 1335 Trans: 04/28/23 1335 [facility] [id number] Interpreted by: GERMAN CALL MD Electronically signed by: GERMAN CALL MD 04/28/231334 Diagonstic Imaging: CT Comments [facility], [place] NAME: ODILON RODRIGUEZ [facility] REC#: [id number] PT STATUS: REG ER : 1965 PHYSICIAN: KIARA HORNER MD ADMIT DATE: 04/28/23/ER Draft Date of Exam:04/28/23 CT HEAD WO-R/O STROKE CLINICAL INDICATIONS: Patient found on the floor. Patient is confused and cannot follow commands. Rule out stroke. EXAM: Axial CT scan of the brain performed without IV contrast. Auto Exposure Controls were utilized during the CT exam to meet ALARA standards for radiation dose reduction. COMPARISON: MRI of the brain without contrast dated 07/16/2021.. FINDINGS: There is no CT evidence of acute cerebral infarct, intracranial hemorrhage, brain herniation or midline shift. There is no dense vessel sign. There is stable moderate sized chronic cerebral infarct involving the left cerebral hemisphere in the left MCA distribution. There is no brain herniation, midline shift. There is no intraparenchymal hemorrhage. There is no hydrocephalus. Basal cisterns are unremarkable. Extracranial soft tissues, skull, and orbits are unremarkable. There are moderate to large amounts of consolidation and mucosal thickening involving ethmoid sinus and frontal sinus. There is small to moderate amount of mucosal thickening involving both maxillary sinuses and sphenoid sinus. There are chronic bony sinusitis changes with sclerosis and thickening involving all the paranasal sinuses. IMPRESSION: 1: Stable CT scan of the brain with no evidence of acute intracranial process. There is no dense vessel sign. 2: Stable chronic infarct involving left cerebral hemisphere. Results of this report discussed with Dr. Kiara Horner via the telephone on 04/28/2023 at 1332 hours. Dictated on workstation # [id number] Dict: 04/28/23 1324 Trans: 04/28/23 1336 [id number] [id number] Interpreted by: MARQUES LIMA MD Electronically signed by: Adiel [facility] [place] NAME: ODILON RODRIGUEZ [facility] REC#: [id number] PT STATUS: REG ER : 1965 PHYSICIAN: KIARA HORNER MD ADMIT DATE: 04/28/23/ER Signed Date of Exam:04/28/23 CT ANGIO HEAD/NECK PROCEDURE: CT angiography of the head and CT angiography of the neck with and without contrast. TECHNIQUE: Contiguous noncontrast images were obtained from the skull base through the vertex. After intravenous contrast administration, helical CT angiography of the neck was performed. Source data was reformatted into 3D MIP projections. Delayed post contrast acquisition was also obtained. Auto Exposure Controls were utilized during the CT exam to meet ALARA standards for radiation dose reduction. INDICATION: Found down. Stroke. Confusion. COMPARISON: 04/28/2023. 07/16/2021. FINDINGS: CTA Neck: The visualized portions of the aortic arch demonstrate no evidence of aneurysm or dissection. There is conventional branching pattern of the great vessels of the aorta. The brachiocephalic artery is normal in course and caliber. The right and left common carotid origins are unremarkable. The origin of the left subclavian artery is patent. The common carotid arteries and internal carotid arteries demonstrate a mildly tortuous course. No evidence of stenosis or dissection in the carotid systems. The external carotid arteries are patent and unremarkable. The right vertebral artery is dominant. The origin of the right vertebral artery is seen and is unremarkable. The origin of the left vertebral artery is directly off the aorta. There is no focal stenosis seen within the neck. There is no dissection. The vertebral arteries are well visualized to up to the level of the basilar artery. The osseous structures of the cervical spine are unremarkable. Included views through the lung apices demonstrate no focal consolidation. CTA brain: No stenosis or aneurysm is seen in the intracranial portion of the bilateral ICA. There is attenuation of M2 and M3 branches in the left MCA, corresponding to the patient's history of prior left-sided infarct. No focal stenosis or large vessel occlusion is seen. The right MCA is patent without occlusion or stenosis. No stenosis is seen in the bilateral anterior and posterior cerebral arteries. Note is made of a hypoplastic right A1 segment. There is origin of the right [employer]. No evidence of aneurysm the [place]. In the posterior circulation, both of the vertebral arteries demonstrate normal opacification. Both the right and left PICA arteries are identified. The basilar artery is normal in course and caliber. The terminal branch vessels including the superior cerebellar arteries unremarkable. IMPRESSION: 1. No stenosis or aneurysm in the [place]. No large vessel occlusion. 2. No stenosis or dissection the bilateral carotid and vertebral arteries. 3. Chronic attenuation of the M2 and M3 branches in the left MCA, corresponding to prior infarct in the left frontal lobe. Dictated by: Dictated on workstation # [id number] Dict: 04/28/23 1600 Trans: 04/28/231627 AS6 [id number] Interpreted by: JAZMIN BALLARD DO Electronically signed by: JAZMIN BALLARD DO 04/28/23 1628 Departure Communication (Admissions) Time/Spoke to Admitting Phy: 17:[address] Springer ([facility] Hospitalist) - admit to Cardiac Stepdown Impression Primary Impression: Altered mental status Qualified Codes: R41.82 - Altered mental status, unspecified Disposition: ADMITTED INPATIENT Condition: Stable Admissions Decision to Admit Reason: Admit from ER (General) Decision to Admit/Date: Apr 28, 2023 Time/Decision to Admit Time: 17:37 Departure-Patient Inst. Referrals: SHELDON BOSTON MD (PCP/Family) Primary Care Physician KIARA HORNER MD Apr 28, 2023 16:12
[2023-04-28 18:05] LABS: SALICYLATE < 5.0 MG/DL (5.0-20.0)
[2023-04-28 18:25] LABS: ACETAMINOPHEN < 10 UG/ML (10-30); VALPROIC ACID < 2.0 UG/ML (50.0-100.0)
[2023-04-28] MEDS ORDERED: ANTACID SUSPENSION 30 ML UDC PO PRN ×2 (21:45)
[2023-04-28] MEDS ORDERED: diphenhydrAMINE INJ 50 MG/ML VIAL IVP PRN (21:45)
[2023-04-28] MEDS ORDERED: ONDANSETRON 4 MG ORAL DISSOLVE TABLET PO PRN (21:45)
[2023-04-28] MEDS ORDERED: ACETAMINOPHEN 325 MG TABLET PO PRN (21:45)
[2023-04-28] MEDS ORDERED: ONDANSETRON 4 MG ORAL DISSOLVE TABLET SL PRN (21:45)
[2023-04-28] MEDS ORDERED: MELATONIN 3 MG TABLET PO PRN (21:45)
[2023-04-28] MEDS ORDERED: HYDROmorphone INJECTION 2 MG/ML VIAL IV PRN (21:45)
[2023-04-28] MEDS ORDERED: CALCIUM CARBONATE 500 MG CHEW TABLET PO PRN (21:45)
[2023-04-28] MEDS ORDERED: oxyCODONE IMMEDIATE RELEASE 5 MG TABLET PO PRN (21:45)
[2023-04-28] MEDS ORDERED: BISACODYL 10 MG SUPPOSITORY PR PRN (21:45)
[2023-04-28] MEDS ORDERED: LACTULOSE SYRUP 10GM/15ML 30ML UDC PO PRN (21:45)
[2023-04-28] MEDS ORDERED: SENNA W/DOCUSATE TABLET PO PRN (21:45)
[2023-04-28] MEDS ORDERED: MILK OF MAGNESIA 400 MG/5 ML 30 ML UDC PO PRN (21:45)
[2023-04-28] MEDS ORDERED: LORazepam 1 MG TABLET PO PRN (21:45)
[2023-04-28] MEDS ORDERED: diphenhydrAMINE 25 MG TABLET PO PRN (21:45)
[2023-04-28] MEDS ORDERED: D5 1/2 NS 1,000 ML IV 1,000 ML IV PRN (21:45)
[2023-04-28] MEDS ORDERED: 1/2 NS IV SOLUTION 1000 ML 1,000 ML IV PRN (21:45)
[2023-04-28] MEDS ORDERED: ENOXAPARIN 40 MG/0.4 ML SYRINGE SC SCH (21:45)
[2023-04-28] MEDS ORDERED: ONDANSETRON INJECTION 4 MG/2 ML (SDV) IV PRN ×2 (21:45)
[2023-04-28] MEDS: NS IV 1000 ML 1,000 ML IV SCH (22:54)
[2023-04-28] MEDS ORDERED: RT-ALBUTEROL SULF 2.5 MG/3 ML PRE-MIX VIAL INH PRN (23:45)
[2023-04-29] VITALS (9 sets, daily range): BP systolic 100–141; BP diastolic 52–114
[2023-04-29 05:05] LABS: BILIRUBIN,URINE 3+ (NEGATIVE); CLARITY,URINE CLEAR; COLOR,URINE DARK YELLOW; GLUCOSE, URINE (UA) NEGATIVE (NEGATIVE); KETONES,URINE 4+ (NEGATIVE); NITRITE,URINE NEGATIVE (NEGATIVE); PROTEIN,URINE 1+ (NEGATIVE)
[2023-04-29 05:06] LABS: BACTERIA,URINE FEW /HPF; HYALINE CASTS, URINE RARE /LPF; LEUKOCYTE ESTERASE ,URINE NEGATIVE (NEGATIVE)
[2023-04-29 05:45] LABS: BASOPHILS % (AUTO) 0 % (0-10); EOSINOPHILS # (AUTO) 0.1 10^3/uL (0.0-0.3); EOSINOPHILS % (AUTO) 1 % (0-10); HEMATOCRIT 38 % (40-54); LYMPHOCYTES # (AUTO) 1.5 10^3/uL (1.0-4.0); LYMPHOCYTES % (AUTO) 21 % (12-44); MEAN CORPUSCULAR HEMOGLOBIN 28 pg (25-34); MEAN CORPUSCULAR HGB CONC 34 g/dL (32-36); MEAN CORPUSCULAR VOLUME 84 fL (80-99); MEAN PLATELET VOLUME 10.9 fL (9.0-12.2); MONOCYTES # (AUTO) 0.7 10^3/uL (0.0-1.0); MONOCYTES % (AUTO) 9 % (0-12); NEUTROPHILS # (AUTO) 4.9 10^3/uL (1.8-7.8); NEUTROPHILS % (AUTO) 68 % (42-75); PLATELET COUNT 166 10^3/uL (130-400); WHITE BLOOD COUNT 7.2 10^3/uL (4.3-11.0)
[2023-04-29 06:04] LABS: ALBUMIN 3.9 GM/DL (3.2-4.5); BILIRUBIN,TOTAL 0.8 MG/DL (0.1-1.0); CALCIUM 8.9 MG/DL (8.5-10.1); CREATININE SERUM 0.96 MG/DL (0.60-1.30); POTASSIUM 3.6 MMOL/L (3.6-5.0); TOTAL PROTEIN 6.5 GM/DL (6.4-8.2)
[2023-04-29] MEDS: inSUlin ASPART 1 UNIT/0.01 ML (PER UNIT) SC SCH ×2 (06:38→11:23)
[2023-04-29] MEDS ORDERED: THIAMINE 100 MG (VITAMIN B-1) TAB PO SCH (07:00)
[2023-04-29] MEDS ORDERED: DOCUSATE SODIUM 100 MG CAPSULE PO SCH (09:00)
[2023-04-29] MEDS ORDERED: SENNOSIDES 8.6 MG TABLET PO SCH (09:00)
[2023-04-29] MEDS ORDERED: MAGNESIUM OXIDE 400 MG TABLET PO SCH (09:00)
[2023-04-29] MEDS ORDERED: THIAMINE INJECTION 100 MG, FOLIC ACID INJECTION 1 MG, MAGNESIUM SULFATE 2 GM, MULTIVITA... IV SCH ×5 (09:00)
--- NOTE | 2023-04-29 11:32 | Physical Therapy Evaluation ---
PT Evaluation-General Medical Diagnosis Admission Date Apr 28, 2023 at 21:26 Medical Diagnosis: Altered mental status Onset Date: Apr 28, 2023 Therapy Diagnosis Therapy Diagnosis: unsafe ambulation Height/Weight Height (Feet): 6 Height (Inches): 3.00 Weight (Pounds): 200 Weight (Ounces): 6.4 Precautions Precautions/Isolations: Fall Prevention, Standard Precautions Weight Bear Status Right Lower Extremity: Right Full Weight Bearing Left Lower Extremity: Left Full Weight Bearing Referral Physician: Paris Springer DO Reason for Referral: Evaluation/Treatment Medical History Pertinent Medical History: Atrial Fib, COPD, CVA, GERD, HTN Additional Medical History sleep apnea, (R) ankle compound fx with ORIF,eczema Current History Pt found in his home between the bed and wall. He was conscious, but struggling to get up. Taken to ED via EMS. Reviewed History: Yes Social History Home: Current Living Status: Alone Entry Into Home: Stairs With Railing PT Steps Into Home: 5 Resides in a trailer home Prior Prior Level of Function SCALE: Activities may be completed with or without assistive devices. 0-Shqbmfyort-rbuzepa completes the activity by him/herself with no assistance from a helper. 5-Set-up or Clean-up Assistance-helper sets up or cleans up; patient completes activity. Hiram assists only prior to or following the activity. 4-Supervision or Touching Assistance-helper provides verbal cues and/or touching/steadying and/or contact guard assistance as patient completes activity. Assistance may be provided throughout the activity or intermittently. 3-Partial/Moderate Assistance-helper does LESS THAN HALF the effort. Hiram lifts, holds or supports trunk or limbs, but provides less than half the effort. 2-Substantial/Maximal Assistance-helper does MORE THAN HALF the effort. Hiram lifts or holds trunk or limbs and provides more than half the effort. 9-Pbidsddpi-nnjpnf does ALL the effort. Patient does none of the effort to complete the activity. Or, the assistance of 2 or more helpers is required for the patient to complete the activity. If activity was not attempted, code reason: 7-Patient Refused. 9-Not Applicable-not attempted and the patient did not perform the activity before the current illness, exacerbation or injury. 10-Not Attempted due to Environmental Limitations-(lack of equipment, weather restraints, etc.). 88-Not Attempted due to Medical Conditions or Safety Concerns. Bed Mobility: 6 Transfers (B,C,W/C): 6 Gait: 6 Stairs: 6 Indoor Mobility (Ambulation): Independent Stairs: Independent Prior Devices Use: None Pt was (I) with all mobility and mowed his lawn earlier in the week. PT Evaluation-Current Subjective No complaints at this time. Pt/Family Goals return home Objective Patient Orientation: Person, Place, Time, Situation Attachments: IV ROM/Strength ROM Upper Extremities WFL ROM Lower Extremities WFL Strength Upper Extremities WFL Strength Lower Extremities WFL Integumentary/Posture Bowel Incontinence: No Bladder Incontinence: No Neuromuscular (Tone, Coordination, Reflexes) Intact Sensory Vision: Wears Glasses Hearing: Functional Hand Dominance: Right Sensation Right Upper Extremit: Intact Sensation Left Upper Extremity: Intact Sensation Right Lower Extremit: Intact Sensation Left Lower Extremity: Intact Transfers Roll Left to Right (QC): 6 Sit to Lying (QC): 6 Lying to Sitting/Side of Bed(Q: 6 Sit to Stand (QC): 6 Gait Does the Patient Walk?: Yes Mode of Locomotion: Walk Anticipated Mode of Locomotion: Walk Walk 10 feet (QC): 4 Walk 50 ft with 2 Turns(QC): 4 Walk 150 ft (QC): 4 Distance: 160ft Gait Assistive Device: None Comments/Gait Description Due to prior ankle injury, he has limited ankle ROM, resulting in a widened base of support and mild ataxia. Wheelchair Training Does the Pt Use a Wheelchair?: No Balance Sitting Static: Normal Sitting Dynamic: Normal Standing Static: Normal Standing Dynamic: Normal Picking up an Object (QC): 6 Assessment/Needs Pt requires supervision when getting up and standing due to AMS. He ambulates well but does need supervision at this time due to occasional missteps and antalgia. Rehab Potential: Good PT Banquet Cook Goals Banquet Cook Goals PT Banquet Cook Goals Time Frame: May 06, 2023 Roll Left & Right (QC): 6 Sit to Lying (QC): 6 Lying-Sitting on Side/Bed(QC): 6 Sit to Stand (QC): 6 Chair/Tuy-la-Foqgx Xfer(QC): 6 Toilet Transfer (QC): 6 Car Transfer (QC): 6 Does the Patient Walk: Yes Walk 10 feet (QC): 6 Walk 50ft with 2 Turns (QC): 6 Walk 150 ft (QC): 6 Walking 10ft on Uneven Surface: 6 1 Step (curb) (QC): 6 4 Steps (QC): 6 Does the Pt use WC or Scooter?: No PT Plan Problem List Problem List: Activity Tolerance, Functional Strength, Safety, Balance, Gait, Transfer, Bed Mobility Treatment/Plan Treatment Plan: Continue Plan of Care Treatment Plan: Bed Mobility, Functional Activity Erin, Functional Strength, Gait, Safety, Therapeutic Exercise, Transfers Treatment Duration: May 06, 2023 Frequency: 5 times per week Estimated Hrs Per Day: .25 hour per day Patient and/or Family Agrees t: Yes Time Time In: 1105 Time Out: 1135 DATE: Apr 29, 2023 Total Billed Treatment Time: 30 Total Billed Treatment 1, glenna 30 SUDHA SU PT Apr 29, 2023 11:32
[2023-04-29] MEDS ORDERED: LORA10TA76 PO (12:16)
[2023-04-29] MEDS ORDERED: PRAZ2CAP2 PO (12:16)
[2023-04-29] MEDS ORDERED: FLUO20CA48 PO (12:16)
[2023-04-29] MEDS ORDERED: PANT40TA52 PO (12:16)
[2023-04-29] MEDS ORDERED: MIRT45TA75 PO (12:16)
[2023-04-29] MEDS ORDERED: ARIP5TAB57 PO (12:16)
[2023-04-29] MEDS ORDERED: CHOL200059 PO (12:16)
--- NOTE | 2023-04-29 13:16 | Short Stay Summary-Hospitalist ---
SUDHA BEVERLY 04/29/23 1316: History of Present Illness HPI/Chief Complaint Odilon is a 58 year old male that is in the hospital after having a syncopal episode on 04/28 that resulted in him being brought to ED. In the ED, patient was unable to remember what happened. Patient stated that he had abdominal pain, but was not endorsing any other symptoms. Patient appeared confused and was only able to orient to self, was unsure about where he was and why he was in the hospital. Patient does not remember what was happening before the episode. He only recalls his morning such as when he was in his room. His outpatient coordinator stated that he had his episode after carrying in groceries and she found him about 20 minutes later. Patient denies any alcohol, illegal substances, or marijuana consumption. He denies any history of palpitations, prior dizziness, or headache s. He has had a stroke in the past. He has positive family history of CVA. His only family is his brother, he lives alone, and has a outpatient coordinator for assistance with ADL. He has no other symptoms currently and has no concerns other than wanting to get home for [employer]. Odilon is on telemetry, EKG has revealed some premature ventricular complexes. Source: patient Date Seen 04/29/23 Time Seen by a Provider: 10:30 Attending Physician Vanna Rowell MD PCP Admitting Physician: Paris Rodrigues DO Attending Physician: Paris Rodrigues DO Referring Physician Date of Admission Apr 28, 2023 at 21:26 Home Medications & Allergies Home Medications Reviewed patient Home Medication Reconciliation performed by pharmacy medication reconciliations refrigeration technician and/or nursing. Patients Allergies have been reviewed. 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) Tobacco Use?: No Smoking Status: Never a Smoker Use of E-Cig and/or Vaping dev: No Substance use?: No Alcohol Use?: No Pt stated abuse/neglect: No Immunizations Up To Date Influenza Vaccine Up-to-Date: Yes; Up-to-Date First/Initial COVID19 Vaccinat: 03/20/21 Second COVID19 Vaccination Tacho: 03/20/21 Tetanus Booster (TDap): Less Than 5 Years Hepatitis A: No Hepatitis B: No TB Skin Test: None Date of Pneumonia Vaccine: Jul 20, 2013 Current Status Advance Directives: No Communicates: Verbally Primary Language: Azeri Preferred Spoken Language: Azeri Is interpretation needed?: No Sensory deficits: Vision impairment Implanted or Applied Medical D: CPAP, Other Past Medical History PMHx: 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, with chronic weakness HTN HLD Depression Anxiety Obstructive sleep apnea on bipap SurgHx: Ankle/foot repair after fall from a roof Family Medical History Family Hx: Father, mother, and grandmother CVA (all ) Review of Systems Constitutional: No dizziness, No fever, No weakness EENTM: no symptoms reported Respiratory: no symptoms reported; No cough, No short of breath, No wheezing Cardiovascular: No chest pain, No palpitations (patient denies ); syncope Gastrointestinal: no symptoms reported, abdominal pain (patient noted pain in ER, no longer states pain); No jaundice, No loss of appetite Genitourinary: no symptoms reported Musculoskeletal: muscle stiffness (L-ankle pain, previous surgery) Skin: no symptoms reported Psychiatric/Neurological: See HPI; Denies Depressed, Denies Headache, Denies Numbness, Denies Seizure, Denies Tingling Physical Exam Physical Exam Vital Signs Vital Signs - First Documented 04/28/23 04/28/23 04/28/23 12:20 21:20 23:29 Temp 36.5 Pulse 88 Resp 10 B/P (MAP) 142/106 (118) Pulse Ox 95 O2 Delivery Room Air FiO2 21 Capillary Refill : Less Than 3 Seconds Height, Weight, BMI Height: 6'3.00" Weight: 200lbs. 6.4oz. [id number]; 22.73 BMI Method:Estimated General Appearance: No Apparent Distress, WD/WN Eyes: Bilateral Eye Normal Inspection, Bilateral Eye PERRL, Bilateral Eye EOMI HEENT: PERRL/EOMI, TMs Normal, Moist Mucous Membranes; No Scleral Icterus (L), No Scleral Icterus (R) Neck: Full Range of Motion, Non Tender, Supple; No Carotid Bruit, No JVD Respiratory: Chest Non Tender, Lungs Clear, Normal Breath Sounds, No Accessory Muscle Use, No Respiratory Distress; No Accessory Muscle Use, No Decreased Breath Sounds, No Pleural Rub, No Rales, No Respiratory Distress, No Wheezing Cardiovascular: Regular Rate, Rhythm, Normal Peripheral Pulses; No Bradycardia, No Irregularly Irregular, No Tachycardia Gastrointestinal: Non Tender, Soft; No Guarding, No Mass Rectal: Deferred Back: Normal Inspection, No Vertebral Tenderness Extremity: Normal Capillary Refill, Normal Inspection, Normal Range of Motion, Other (L ankle is tender) Neurologic/Psychiatric: Alert, Oriented x3, No Motor/Sensory Deficits, container finishing inspector II- XII Norm as Tested, Depressed Affect (FLAT) Reflexes: 2+ Ankle (R), 2+ Ankle (L) Skin: Normal Color, Warm/Dry, Other (no evidence of bruising or ecchymoses) Lymphatic: No Adenopathy Comments negative babinski, no myoclonus Results Results/Procedures Labs Laboratory Tests 04/28/23 12:25 04/29/23 04:55 Patient resulted labs reviewed. INR: 1.1 (normal) AlkPhos: 143 (elevated) Imaging: Reviewed Imaging Report (Noted previous L- middle hemisphere corrina chronic infarct, prior L-MCA infarct; negative for other aneurysm/infarcts or recent changes ) Meds Insulin Aspart, Enoxaparin Short Stay Diagnosis Discharge Diagnosis-Short Stay Admission Diagnosis Assessment: Syncopal Episode followed by altered mental status Possible TIA Conclusion Plan Syncope could be caused by an arrhythmia, supported by EKG changes. Referred to Dr. Bermudez (cardiology) to review and perform an echocardiogram. If abnormalities are present, defer care to cardiology and primary care team. For the TIA, continue to monitor for changes for mental status, or signs of a CVA. Prior history of CVA elevate risk for future issues if TIA did occur. Diagnosis/Problems Diagnosis/Problems (1) Syncope Onset Date: ~ 04/28/2023 Status: Acute Assessment & Plan: Cardiology consult, echocardiogram Qualifiers: Qualified Codes: R55 - Syncope and collapse (2) Altered mental status Onset Date: ~ 04/28/2023 Status: Acute Assessment & Plan: Monitor for changes in mental status, continue to check orientation. Qualifiers: Qualified Codes: R41.82 - Altered mental status, unspecified Clinical Quality Measures Admission Status Admission Dx Syncopal episode potentially due to arrhythmia with resulting altered mental status Admission Status: Observation DVT/VTE Prophylaxis Comfirm.Dx Mechanical not ordered: Pharmacological PPX (enoxaparin/ SCDs) PARIS RODRIGUES DO 04/29/231952: History of Present Illness HPI/Chief Complaint Chief complaint: Syncope HPI: This is a 58-year-old male clinic patient of [facility] and cardiology who presented after syncopal episode. Patient was evaluated on telemetry without any cardiac events. He seemed to be back to normal baseline which he does live independently but caregivers provide care for him. 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) Past Medical History Mental illness Hypertension Hyperlipidemia Review of Systems Constitutional: see HPI, dizziness Physical Exam Physical Exam General Appearance: No Apparent Distress, WD/WN, Chronically ill Respiratory: Lungs Clear, No Accessory Muscle Use Cardiovascular: Regular Rate, Rhythm Short Stay Diagnosis Discharge Diagnosis-Short Stay Admission Diagnosis Syncope Confusion Mental illness Final Discharge Diagnosis Syncopal episode Confusion Mental illness Conclusion Plan Discharge home Supervisory-Addendum Brief Verification & Attestation Participated in pt care: history, MDM, physical Personally performed: exam, history, MDM, supervision of care Care discussed with: Medical Student Procedures: n/a Results interpretation: Verified all documentation Verification and Attestation of Medical Student E/M Service A medical student performed and documented this service in my presence. I reviewed and verified all information documented by the medical student and made modifications to such information, when appropriate. I personally performed the physical exam and medical decision making. Paris Rodrigues Apr 29, 2023,19:52 SUDHA BEVERLY Apr 29, 2023 13:16 PARIS RODRIGUES DO Apr 29, 2023 19:53
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
[2023-04-29] MEDS: NS IV 1000 ML 1,000 ML IV SCH (15:00)
[2023-04-29] MEDS ORDERED: NON-FORMULARY MEDICATION 1 EA EA (Mirtazapine 45 MG) PO SCH (21:00)
[2023-04-29] MEDS ORDERED: NON-FORMULARY MEDICATION 1 EA EA (Aripiprazole 5 MG) PO SCH (21:00)
[2023-04-29] MEDS ORDERED: OMEGA 3 (FISH OIL) 1000 MG CAP PO SCH (21:00)
[2023-04-29] MEDS ORDERED: ASPIRIN 81 MG CHEWABLE TABLET PO SCH (21:00)
[2023-04-29] MEDS ORDERED: amLODIPine 10 MG TABLET PO SCH (21:00)
[2023-04-29] MEDS ORDERED: TERAZOSIN 1 MG CAPSULE PO SCH (21:00)
[2023-04-29] MEDS ORDERED: NON-FORMULARY MEDICATION 1 EA EA (Prazosin HCl 2 MG) PO SCH (21:00)
[2023-04-29] MEDS ORDERED: NON-FORMULARY MEDICATION 1 EA EA (Ascorbic Acid (Vitamin C) 1,000 MG) PO SCH (21:00)
[2023-04-29] MEDS ORDERED: traZODone 50 MG (DESYREL) TAB PO SCH (21:00)
[2023-04-29] MEDS ORDERED: ROSUVASTATIN 10 MG TABLET PO SCH (21:00)
[2023-04-29] MEDS ORDERED: SOTALOL 80 MG TABLET PO SCH (21:00)
[2023-04-29] MEDS ORDERED: MIRTAZAPINE 15 MG TABLET PO SCH (21:00)
[2023-04-29] MEDS ORDERED: ARIPiprazole 10 MG TABLET PO SCH (21:00)
[2023-04-30] MEDS ORDERED: VITAMIN D3 25 MCG (1,000 UNITS) TABLET PO SCH (09:00)
[2023-04-30] MEDS ORDERED: NON-FORMULARY MEDICATION 1 EA EA (Cholecalciferol (Vitamin D3) (Vitamin D3) 50 MCG) PO SCH (09:00)
[2023-04-30] MEDS ORDERED: NON-FORMULARY MEDICATION 1 EA EA (Multivit-Min/FA/Lycopene/Lut (Centrum Silver Tablet) 1 E PO SCH (09:00)
[2023-04-30] MEDS ORDERED: PANTOPRAZOLE 40 MG TABLET PO SCH (09:00)
[2023-04-30] MEDS ORDERED: LOSARTAN 50 MG TABLET PO SCH (09:00)
[2023-04-30] MEDS ORDERED: LORATADINE 10 MG TABLET PO SCH (09:00)
[2023-04-30] MEDS ORDERED: NON-FORMULARY MEDICATION 1 EA EA (Fluoxetine HCl 40 MG) PO SCH (09:00)
[2023-04-30] MEDS ORDERED: FLUoxetine 20 MG CAPSULE PO SCH (09:00)
[2023-05-02] MEDS ORDERED: THERAPEUTIC MULTIVITAMIN W/MINERALS TABLET PO SCH (07:00)
[2023-05-02] MEDS ORDERED: FOLIC ACID 1 MG TAB PO SCH (09:00)
== END 2023-04-29 15:30 | disposition home or self-care (01) ==
LOC: EDUNIT# 12:16 → ER 12:17 → CSD 21:26
PROVIDERS: ADMIT Internal Medicine; ATTEND Internal Medicine
DX: R55 Syncope and collapse (principal); R41.82 Altered mental status, unspecified; F99 Mental disorder, not otherwise specified; G40.909 Epilepsy, unspecified, not intractable, without status epilepticus; I10 Essential (primary) hypertension; I07.1 Rheumatic tricuspid insufficiency; E78.5 Hyperlipidemia, unspecified; I65.23 Occlusion and stenosis of bilateral carotid arteries; R00.2 Palpitations; G47.30 Sleep apnea, unspecified; Z99.81 Dependence on supplemental oxygen; Z86.711 Personal history of pulmonary embolism; Z86.73 Personal history of transient ischemic attack (TIA), and cerebral infarction without residual deficits; Z79.899 Other long term (current) drug therapy; Z87.19 Personal history of other diseases of the digestive system
CPT/HCPCS: 36415; 70450; 70496; 70498; 71045; 80053; 80061; 80164; 80320; 80329; 81000; 82947; 84484; 85025; 85379; 85610; 85730; 93005; 93041; 93306; 96372; 96375

== ENCOUNTER 2023-07-08 06:16 | Outpatient (CLI) | payer MEDICARE, MEDICAID ==
[~2023-07-08] VITALS: Ht 190.5 cm; Wt 91.2 kg
[~2023-07-08 06:16] MED LIST changes: +CHOL200059 PO; +FLUO20CA48 PO; +LORA10TA76 PO; +MIRT45TA75 PO; +PANT40TA52 PO; +PRAZ2CAP2 PO
[2023-07-13] MEDS ORDERED: AMLO-250 PO (13:12)
== END 2023-07-13 13:14 | disposition home or self-care (01) ==
LOC: PREOP 06:16
PROVIDERS: ATTEND Surgery
DX: Z01.818 Encounter for other preprocedural examination (principal)

== ENCOUNTER 2023-07-21 10:09 | Day surgery (SDC) | payer MEDICARE, MEDICAID ==
[~2023-07-21] VITALS: Ht 190.5 cm; Wt 91.2 kg
[~2023-07-21 10:09] MED LIST changes: +AMLO-250 PO
[2023-07-21] MEDS ORDERED: LACTATED RINGERS 1,000 ML 1,000 ML IV STA (10:18)
[2023-07-21 10:30] VITALS: BP 143/96
[2023-07-21 10:39] LABS: AMPHETAMINE SCREEN, URINE NEGATIVE (NEGATIVE); BARBITURATE SCREEN URINE NEGATIVE (NEGATIVE); CANNABINOID SCREEN, URINE POSITIVE (NEGATIVE); COCAINE SCREEN URINE NEGATIVE (NEGATIVE); METHADONE STAT NEGATIVE (NEGATIVE); OPIATE SCREEN URINE NEGATIVE (NEGATIVE); OXYCODONE STAT NEGATIVE (NEGATIVE); TRICYCLIC ANTIDEPRESSANTS SCRE NEGATIVE (NEGATIVE)
--- NOTE | 2023-07-21 11:21 | Progress Note-Pre Operative ---
Pre-Operative Progress Note Date of Available H&P: Jul 21, 2023 Date H&P Reviewed: Jul 21, 2023 Time H&P Reviewed: 11:20 History & Physical: H&P Reviewed, Patient Examed, No changes noted Pre-Operative Diagnosis: history of colon polyps RISHI GONZALEZ DO Jul 21, 2023 11:21
--- NOTE | 2023-07-21 12:08 | Progress Note-Post Operative ---
Post-Operative Progess Note Surgeon (s)/Manager Audit (s) Surgeon RISHI GONZALEZ DO Manager Audit: n/a Pre-Operative Diagnosis history of colon polyps Post-Operative Diagnosis Transverse polyp, Anal tag. Internal hemorrhoids Procedure & Operative Findings Date of Procedure 07/21/23 Procedure Performed/Findings colonoscopy with hot biopsy polypectomy Anesthesia Type per PELOTA MAKER Estimated Blood Loss Estimated blood loss (mL): none Specimens/Packing Specimens Removed Transverse colon x1 RISHI GONZALEZ DO Jul 21, 2023 12:08
[2023-07-21 12:09] VITALS: BP 110/66
--- NOTE | 2023-07-21 12:10 | Discharge Inst-Simple/Standard ---
Discharge Inst-Standard Patient Instructions/Follow Up Plan of Care/Instructions/FU: 2 weeks julieta Activity as Tolerated: Yes Discharge Diet: Regular Diet (high fiber) RISHI GONZALEZ DO Jul 21, 2023 12:09
[2023-07-21 12:14] VITALS: BP 114/69
[2023-07-21 12:20] VITALS: BP 114/69
[2023-07-21 12:50] VITALS: BP 128/68
[2023-07-21 13:10] VITALS: BP 128/68
--- NOTE | 2023-07-21 13:28 | Anesthesia-General Post-Op ---
MAC Patient Condition Mental Status/LOC: Same as Preop Cardiovascular: Satisfactory Nausea/Vomiting: Absent Respiratory: Satisfactory Pain: Controlled Complications: Absent Post Op Complications Complications None Follow Up Care/Instructions Patient Instructions None needed. Anesthesiology Discharge Order Discharge Order Patient is doing well, no complaints, stable vital signs, no apparent adverse anesthesia problems. No complications reported per nursing. JARRETT JUSTICE CRNA Jul 21, 2023 13:28
--- NOTE | 2023-07-21 17:34 | OPERATIVE REPORT ---
DATE OF SERVICE: 07/21/2023 PREOPERATIVE DIAGNOSIS: History of polyps. POSTOPERATIVE DIAGNOSES: 1. Colon polyps. 2. Internal hemorrhoids. PROCEDURE: Colonoscopy with hot biopsy polypectomy x1. SURGEON: Rishi Romero DO ANESTHESIA: Per [facility]. ESTIMATED BLOOD LOSS: None. COMPLICATIONS: None. INDICATIONS: The patient is a 58-year-old male with history of polyps. He understands risks and benefits of procedure and wished to proceed. Consent was signed in chart. DESCRIPTION OF PROCEDURE: The patient was taken to endoscopy suite, placed in left lateral recumbent position. Timeout was performed. Digital rectal exam was performed. No palpable polyps, masses or ulcerations. Large internal hemorrhoids that prolapsed. Scope was inserted in the rectum, advanced all the way to the cecum with minimal difficulty. Prep was liquid, but had difficulty with visualization due to particulate. Lots of irrigation and suction was used for better visualization. Scope was then slowly retracted back. No polyps, masses or ulcerations in the cecum and ascending colon. In the transverse colon, polyp was present, which hot biopsy polypectomy was performed. Scope was then continuously retracted back. No polyps, masses or ulcerations visualized in the transverse, descending and sigmoid colon. Once in the rectum, scope was retroflexed, noting no other hemorrhoids. Scope was returned to its normal position, slowly withdrawn until completely removed. The patient tolerated the procedure well without complications, taken to recovery room in stable condition. RECOMMENDATIONS: The patient will need repeat colonoscopy in 3-5 years. Any issues before that, he will be seen at that time. At that time, we would recommend a 2-day prep. Job ID: [id number] DocumentID: [id number] Dictated Date: 07/21/2023 12:08:16 Cad Administrator Date: 07/21/2023 17:32:00 Dictated By: RISHI ROMERO DO
== END 2023-07-21 13:10 | disposition home or self-care (01) ==
LOC: ENDO 10:09
PROVIDERS: ATTEND Surgery
DX: Z12.11 Encounter for screening for malignant neoplasm of colon (principal); D12.3 Benign neoplasm of transverse colon; K64.8 Other hemorrhoids; Z87.891 Personal history of nicotine dependence; G47.33 Obstructive sleep apnea (adult) (pediatric)
CPT/HCPCS: 80306; 88305